=== PATIENT | male | born 1950 | race African-American/Black ===

== ENCOUNTER 2016-11-21 22:52 | Inpatient (IN) | payer MEDICARE ==
[~2016-11-21] VITALS: Ht 190.5 cm; Wt 107.0 kg
[~2016-11-21 22:52] MED LIST: ALDACTONE50 MG ORAL; BENAZEPRIL HCL40 MG ORAL; HYDROCHLOROTHIA25 MG ORAL
[2016-11-22] MEDS ORDERED: LACTULOSE20 GM/301 ORAL (02:24)
[2016-11-22] MEDS ORDERED: FUROSEMIDE20 M1 ORAL (02:24)
[2016-11-22] MEDS ORDERED: SPIRONOLACTONE1 EACH ORAL (02:24)
[2016-11-22] MEDS ORDERED: PROTONIX20 MG ORAL (02:24)
[2016-11-22] MEDS ORDERED: PROPRANOLO20 MG/5 M1 PO (02:24)
[2016-11-22] MEDS ORDERED: Acetaminophen 500mg (ES) tab ORAL PRN (02:45)
[2016-11-22 04:30] VITALS: BP 90/53
[2016-11-22] MEDS: Spironolactone 50mg tab ORAL SCH ×2 (08:23→18:18)
[2016-11-22] MEDS: Propranolol 10mg tab ORAL SCH ×2 (08:24→18:00)
[2016-11-22] MEDS: Lactulose 20gm/30ml UDC ORAL SCH ×2 (08:30→18:18)
[2016-11-22 08:37] VITALS: BP 91/53
[2016-11-22 08:43] LABS: MEAN CORPUSCULAR HGB CONC 30.9 G/DL (32.0-36.0); MEAN CORPUSCULAR VOLUME 104 FL (80-99); MEAN PLATELET VOLUME 8.1 FL (6.5-10.1); PLATELET COUNT 76 K/UL (150-450); RED BLOOD COUNT 2.16 M/UL (4.70-6.10); RED CELL DISTRIBUTION WIDTH 17.9 % (11.6-14.8); WHITE BLOOD COUNT 7.1 K/UL (4.8-10.8)
[2016-11-22 08:54] LABS: TROPONIN I < 0.30 ng/mL (<=0.30)
[2016-11-22 08:57] LABS: REFLEX LACTIC ACID YES OR NO YES
[2016-11-22 08:59] LABS: ALANINE AMINOTRANSFERASE 34 U/L (3-41); ALBUMIN/GLOBULIN RATIO 0.3 (1.0-2.7); ANION GAP 13 (5-15); ASPARTATE AMINO TRANSFERASE 62 U/L (5-40); CALCIUM 8.1 mg/dL (8.6-10.2); CARBON DIOXIDE 22 mEQ/L (20-30); CHLORIDE 101 mEQ/L (98-107); CHOLESTEROL 76 mg/dL (< 200); CHOLESTEROL/HDL RATIO 5.8 (3.3-4.4); CREATININE 1.3 mg/dL (0.7-1.2); GLOMERULAR FILTRATION RATE > 60 mL/min (>60); HEMOLYSIS 0; LDL CHOLESTEROL (CALC.) 56 mg/dL (60-99); POTASSIUM 4.2 mEQ/L (3.4-4.9); SODIUM 136 mEQ/L (135-145); TOTAL PROTEIN 6.7 g/dL (6.6-8.7)
[2016-11-22] MEDS ORDERED: Enoxaparin 40mg Inj SUBQ SCH (09:00)
[2016-11-22 09:12] LABS: BILIRUBIN,DIRECT 2.1 mg/dL (0.1-0.3)
[2016-11-22 09:38] LABS: HEMOGLOBIN A1C 4.5 % (< 6.0)
--- NOTE | 2016-11-22 10:02 | General Progress Note ---
Assessment/Plan Status: unchanged Assessment/Plan 1- Sepsis 2- Liver cirhosis 3- HepC 4- Acute Anemia 5- Full code 6- Thrombocytopenia 7- GI-DVT prophylaxia Plan Proceed 2 unit Pack-RBC hold Lovenox LE Dupplex Levaquin to cover SBP Abd US, CXR GI, Dr Denson is consulted Subjective ROS Limited/Unobtainable: No Allergies: Coded Allergies: No Known Allergies (Unverified , 08/21/16) Objective Last 24 Hour Vital Signs Date Time Temp Pulse Resp B/P Pulse Ox O2 Delivery O2 Flow Rate FiO2 11/22/16 08:37 97.3 67 18 91/53 100 Nasal Cannula 3.0 11/22/16 08:24 67 91/53 11/22/16 04:30 97.2 62 20 90/53 97 Nasal Cannula 2.0 11/22/16 04:00 65 Intake and Output 11/21/16 11/22/16 19:00 07:00 # Voids 1 Laboratory Tests 11/22/16 08:00: White Blood Count 7.1, Red Blood Count 2.16L, Hemoglobin 6.9*L, Hematocrit 22.3L , Mean Corpuscular Volume 104H, Mean Corpuscular Hemoglobin 32.0H, Mean Corpuscular Hemoglobin Concent 30.9L, Red Cell Distribution Width 17.9H, Platelet Count 76L, Mean Platelet Volume 8.1, Neutrophils (%) (Auto) , Lymphocytes (%) (Auto) , Monocytes (%) (Auto) , Eosinophils (%) (Auto) , Basophils (%) (Auto) , Neutrophils % (Manual) [Pending], Lymphocytes % (Manual) [Pending], Platelet Estimate [Pending], Platelet Morphology [Pending], Sodium Level 136, Potassium Level 4.2, Chloride Level 101, Carbon Dioxide Level 22, Anion Gap 13, Blood Urea Nitrogen 15, Creatinine 1.3H, Estimat Glomerular Filtration Rate > 60, Glucose Level 147H, Hemoglobin A1c 4.5, Lactic Acid Level 2.10, Calcium Level 8.1L, Total Bilirubin 4.1H, Direct Bilirubin 2.1H, Aspartate Amino Transf (AST/SGOT) 62H, Alanine Aminotransferase (ALT/SGPT) 34, Alkaline Phosphatase 49, Ammonia 42, Troponin I < 0.30, Total Protein 6.7, Albumin 1.7L, Globulin 5.0, Albumin/Globulin Ratio 0.3L, Triglycerides Level 33 , Cholesterol Level 76, LDL Cholesterol 56L, HDL Cholesterol 13, Cholesterol/ HDL Ratio 5.8H, Thyroid Stimulating Hormone (TSH) 2.090 Height (Feet): 6 Height (Inches): 3.00 Weight (Pounds): 235 General Appearance: no apparent distress EENT: PERRL/EOMI Neck: supple Cardiovascular: normal rate Respiratory/Chest: lungs clear Abdomen: soft, other - protuberant, Shfiting dullness? 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
--- NOTE | 2016-11-22 12:18 | Consultation ---
Consult Note Consult Note ID Dic # [id number] LAURENT WYNN M.D. Nov 22, 2016 12:18
[2016-11-22 12:44] VITALS: BP 91/63
[2016-11-22 13:14] LABS: BAND NEUTROPHILS % (MANUAL) 0 % (0-8); BASOPHILS % (MANUAL) 0 % (0-2); EOSINOPHILS % (MANUAL) 2 % (0-3); LYMPHOCYTES % (MANUAL) 16 % (20-45); NEUTROPHILS % (MANUAL) 74 % (45-75); PLATELET ESTIMATE DECREASED; PLATELET MORPHOLOGY NORMAL; TOTAL CELLS COUNTED 100
[2016-11-22 13:15] LABS: ANISOCYTOSIS 2+; HYPOCHROMASIA 1+; MACROCYTES 1+; POLYCHROMASIA 1+
[2016-11-22 13:16] LABS: INR 2.5 (0.9-1.1); PROTHROMBIN TIME 26.3 SEC (9.30-11.50)
--- NOTE | 2016-11-22 13:17 | GI Initial Consult Note ---
History of Present Illness General Date patient seen: Nov 22, 2016 Time patient seen: 13:17 Referring physician: OLIVER FLOYD Reason for Consultation: GI BLEED Present Illness HPI 66 year old patient that was recently discharged from [facility] underwent an upper endoscopy on 08/23/2016 with findings of grade 4 distal esophageal varices, small hiatal hernia, distal esophageal bleeding, and portal hypertensive gastropathy. He was started on propranolol. Dr. Liang was consulted for evaluation of thrombocytopenia consistent with end-stage cirrhosis as well as hepatomegaly and hepatosplenomegaly. Hepatitis panel was positive for hepatitis C. Patient presents today with c/o of weakness and fatigue. He presents anemia Hgb 6.9. Ammonia levels are normal. Assessment ETOH cirrhosis Hepatitis C hepatic encephalopathy CHF Esophageal varices s/p EGD 08/2016 - SUMMARY OF FINDINGS: 1. One column of grade 4 distal esophageal varices with questionable stigmata with some smaller columns next to it. 2. Small hiatal hernia. 3. Distal esophageal ring. 4. Portal hypertensive gastropathy. Home Meds Reported Medications Lactulose (LACTULOSE*) 20 Gm/30 Ml Solution, 22 ML ORAL BID, ML 0 Refills 11/22/16 Furosemide* (LASIX*) 20 Mg Tablet, 20 MG ORAL DAILY, TAB 11/22/16 Propranolol Hcl (PROPRANOLOL HCL) 20 Mg/5 Ml Solution, 10 MG PO BID 11/22/16 Spironolact/Hydrochlorothiazid (SPIRONOLACTONE-HCTZ 25-25 TAB) 1 Each Tablet, 1 TAB ORAL BID, TAB 11/22/16 Pantoprazole Sodium (PROTONIX) 20 Mg Tablet.dr, 40 MG ORAL BID, TAB 11/22/16 Benazepril Hcl* (BENAZEPRIL HCL*) 40 Mg Tablet, 40 MG ORAL DAILY, TAB 08/21/16 Spironolactone (ALDACTONE) 50 Mg Tablet, 50 MG ORAL DAILY, TAB 08/21/16 Hydrochlorothiazide* (HYDROCHLOROTHIAZIDE*) 25 Mg Tablet, 25 MG ORAL DAILY, TAB 08/21/16 Med list reviewed/reconciled: Yes Allergies: Coded Allergies: No Known Allergies (Unverified , 08/21/16) Patient History History Provided By: Patient, Medical Record Review of Systems All Other Systems: negative except mentioned in HPI Physical Exam Vital Signs Date Time Temp Pulse Resp B/P Pulse Ox O2 Delivery O2 Flow Rate FiO2 11/22/16 04:00 65 11/22/16 04:30 97.2 20 90/53 97 Nasal Cannula 2.0 Sp02 EP Interpretation: reviewed Labs Laboratory Tests Test 11/22/16 08:00 11/22/16 10:48 11/22/16 12:00 White Blood Count 7.1 K/UL (4.8-10.8) Red Blood Count 2.16 M/UL (4.70-6.10) L Hemoglobin 6.9 G/DL (14.2-18.0) *L Hematocrit 22.3 % (42.0-52.0) L Mean Corpuscular Volume 104 FL (80-99) H Mean Corpuscular Hemoglobin 32.0 PG (27.0-31.0) H Mean Corpuscular Hemoglobin Concent 30.9 G/DL (32.0-36.0) L Red Cell Distribution Width 17.9 % (11.6-14.8) H Platelet Count 76 K/UL (150-450) L Mean Platelet Volume 8.1 FL (6.5-10.1) Neutrophils (%) (Auto) % (45.0-75.0) Lymphocytes (%) (Auto) % (20.0-45.0) Monocytes (%) (Auto) % (1.0-10.0) Eosinophils (%) (Auto) % (0.0-3.0) Basophils (%) (Auto) % (0.0-2.0) Differential Total Cells Counted 100 Neutrophils % (Manual) 74 % (45-75) Lymphocytes % (Manual) 16 % (20-45) L Monocytes % (Manual) 8 % (1-10) Eosinophils % (Manual) 2 % (0-3) Basophils % (Manual) 0 % (0-2) Band Neutrophils 0 % (0-8) Platelet Estimate Decreased L Platelet Morphology Normal Polychromasia 1+ Hypochromasia 1+ Anisocytosis 2+ Macrocytosis 1+ Sodium Level 136 mEQ/L (135-145) Potassium Level 4.2 mEQ/L (3.4-4.9) Chloride Level 101 mEQ/L (98-107) Carbon Dioxide Level 22 mEQ/L (20-30) Anion Gap 13 (5-15) Blood Urea Nitrogen 15 mg/dL (7-23) Creatinine 1.3 mg/dL (0.7-1.2) H Estimat Glomerular Filtration Rate > 60 mL/min (>60) Glucose Level 147 mg/dL (74-106) H Hemoglobin A1c 4.5 % (< 6.0) Lactic Acid Level 2.10 mmol/L (0.66-2.22) 2.30 mmol/L (0.66-2.22) H Calcium Level 8.1 mg/dL (8.6-10.2) L Total Bilirubin 4.1 mg/dL (0.0-1.2) H Direct Bilirubin 2.1 mg/dL (0.1-0.3) H Aspartate Amino Transf (AST/SGOT) 62 U/L (5-40) H Alanine Aminotransferase (ALT/SGPT) 34 U/L (3-41) Alkaline Phosphatase 49 U/L (40-129) Ammonia 42 umol/L (16-60) Troponin I < 0.30 ng/mL (<=0.30) Total Protein 6.7 g/dL (6.6-8.7) Albumin 1.7 g/dL (3.5-5.2) L Globulin 5.0 g/dL Albumin/Globulin Ratio 0.3 (1.0-2.7) L Triglycerides Level 33 mg/dL (< 150) Cholesterol Level 76 mg/dL (< 200) LDL Cholesterol 56 mg/dL (60-99) L HDL Cholesterol 13 mg/dL (> 60) Cholesterol/HDL Ratio 5.8 (3.3-4.4) H Thyroid Stimulating Hormone (TSH) 2.090 uIU/mL (0.300-4.500) Prothrombin Time Pending Prothromb Time International Ratio Pending Activated Partial Thromboplast Time Pending General Appearance: well appearing, no apparent distress, alert Head: normocephalic EENT: normal ENT inspection Neck: supple Respiratory: normal breath sounds, no respiratory distress Cardiovascular: normal rate Gastrointestinal: normal inspection, non tender, soft Rectal: deferred Musculoskeletal: back normal Neurologic: normal inspection, alert, oriented x3, responsive Psychiatric: normal inspection, judgement/insight normal, memory normal Skin: no rash, warm/dry, jaundice Lymphatic: normal inspection, no adenopathy Current Medications Current Medications Medications (Trade) Dose Ordered Sig/Jayne Route PRN Reason Start Time Stop Time Status Last Admin Dose Admin Acetaminophen 500 mg 500 mg Q8H PRN ORAL For Pain 11/22/16 02:45 12/22/16 02:44 Al Hydroxide/Mg Hydroxide 30 ml 30 ml Q8H PRN ORAL Abdominal cramps 11/22/16 02:45 12/22/16 02:44 Dextrose (Dextrose 50%) STAT PRN IV Hypoglycemia 11/22/16 02:30 12/22/16 02:29 Furosemide (Lasix) 20 mg DAILY ORAL 11/22/16 09:00 12/22/16 08:59 Guaifenesin (Robitussin) 100 mg Q4H PRN ORAL For Cough 11/22/16 02:45 12/22/16 02:44 Lactulose (Cephulac) 14.666 gm BID ORAL 11/22/16 09:00 12/22/16 08:59 11/22/16 08:30 Levofloxacin (Levaquin) 100 ml @ 100 mls/hr Q24H IVPB 11/22/16 09:00 11/29/16 08:59 11/22/16 08:33 Octreotide Acetate/Sodium Chloride (SandoSTATIN/NS) 500 ml @ 50 mls/hr Q10H IV 11/22/16 13:00 12/22/16 12:59 Pantoprazole (Protonix) 40 mg BID ORAL 11/22/16 09:00 12/22/16 08:59 11/22/16 08:30 Propranolol HCl (Inderal) 10 mg BID ORAL 11/22/16 09:00 12/22/16 08:59 Spironolactone (Aldactone) 50 mg BID ORAL 11/22/16 09:00 12/22/16 08:59 GI: Plan Problems: (1) Anasarca (2) Esophageal varices determined by endoscopy (3) Alcoholic cirrhosis (4) Pancytopenia Plan hepatitis panel >> Hep C positive elevated ammonia >> lactulose + xifaxan AFP elevation elevated iron levels >> 85 elevated CEA >> 6.5 pt scheduled for EGD tomorrow. - CLD, NPO @ [place]. hold all blood thinners start octreotide gtt ppi BID abx portal HTN mgmt >> propranolol monitor H&H, transfuse prn fu labs Discussed with Dr. Denson. Thank you for referring this patient, we will follow. s/p EGD 08/2016 - SUMMARY OF FINDINGS: 1. One column of grade 4 distal esophageal varices with questionable stigmata with some smaller columns next to it. 2. Small hiatal hernia. 3. Distal esophageal ring. 4. Portal hypertensive gastropathy. Nyla Huitron N.P. Nov 22, 2016 13:17
[2016-11-22 13:52] LABS: APPEARANCE,URINE CLOUDY; KETONES,URINE 1+ (NEGATIVE); LEUKOCYTE ESTERASE ,URINE 2+ (NEGATIVE); NITRITE,URINE POSITIVE (NEGATIVE); PH,URINE 5 (4.5-8.0); PROTEIN,URINE 2+ (NEGATIVE); UROBILINOGEN,URINE 4 MG/DL (0.0-1.0)
--- NOTE | 2016-11-22 13:55 | Diagnostic Imaging Report ---
Indication: Chest pain Technique: One view of the chest Comparison: 08/28/2016 Findings: Again demonstrated is a left-sided pleural effusion, appearing smaller than on the prior study. Right basilar hazy opacity likely represents some consolidation, also less than on the prior exam. There may be some consolidation at the left lung base as well. The heart is again enlarged. Impression: Left-sided pleural effusion, smaller than prior study of August of 2016 Bilateral basilar opacities, likely from parenchymal consolidation or edema Cardiomegaly
[2016-11-22] MEDS: Octreotide Acetate 500 MCG in Sodium Chloride 499 ML IV SCH ×2 (14:03→21:54)
[2016-11-22 14:21] LABS: BACTERIA,URINE FEW /HPF; SQUAMOUS EPITHELIAL CELL,UR FEW /LPF (NONE/OCC)
[2016-11-22 14:22] LABS: ICTOTEST POSITIVE
[2016-11-22 16:00] VITALS: BP 96/51
--- NOTE | 2016-11-22 17:48 | Consultation ---
Consult Note Consult Note HEMATOLOGY ONCOLOGY CONSULT DATE OF CONSULTATION: 11/22/16 CONSULTING PHYSICIAN: Hermilo Liang M.D. REFERRING PHYSICIAN: Noni Bush M.D. REASON FOR CONSULTATION: Evaluation of thrombcytopenia and anemia IDENTIFICATION DATA: Dear Dr. Noni Bush, The patient is a pleasant 66-year-old male with past medical history which is significant for hypertension and otherwise no past medical history at this time presents with a decreased hgb as well as weaknes on labs, was transfused in the ER. He was found to have with elevated ammonia level and remains coagulopathic. GI service as well as consultation was ordered. The patient without any GI bleeding at this moment. The patient was noted to have anemia, leukopenia; therefore, Hematology service was consulted. No blasts were noted on peripheral smear. The patient denies any systemic symptoms at this time. PAST MEDICAL HISTORY: Hypertension. PAST SURGICAL HISTORY: None. MEDICATIONS: Reviewed. ALLERGIES: No known drug allergies. SOCIAL HISTORY: Denies any tobacco use. Drinks wine everyday. No intravenous drug use. FAMILY HISTORY: Noncontributory. REVIEW OF SYSTEMS: Constitutional: No fever, chills, or night sweats. Skin : No rash, bumps or itching. HEENT: No headache, earache, or visual change. Breasts: No lumps, pain, or discharge. Pulmonary: No cough, sputum , or shortness of breath. Cardiovascular: No chest pain, tightness, or palpitations. Gastrointestinal: No nausea, vomiting, or diarrhea. Genitourinary: No dysuria, frequency, or urgency. Musculoskeletal: No joint pain, muscle pain, or trauma. PHYSICAL EXAMINATION: VITAL SIGNS: Last 24 Hour Vital Signs Date Time Temp Pulse Resp B/P Pulse Ox O2 Delivery O2 Flow Rate FiO2 11/22/16 16:00 97.5 64 21 96/51 97 Nasal Cannula 2.0 11/22/16 12:44 97.5 64 18 91/63 99 Nasal Cannula 3.0 11/22/16 12:00 67 11/22/16 08:37 97.3 67 18 91/53 100 Nasal Cannula 3.0 11/22/16 08:24 67 91/53 11/22/16 08:00 64 11/22/16 04:30 97.2 62 20 90/53 97 Nasal Cannula 2.0 11/22/16 04:00 65 GENERAL: No distress. PULMONARY: Decreased breath sounds. CARDIOVASCULAR: Regular rate and rhythm. GASTROINTESTINAL: Abdomen is soft, nontender, and nd EXTREMITIES: 1+ edema. LABORATORY AND DIAGNOSTIC DATA: Test 11/22/16 08:00 11/22/16 10:48 11/22/16 12:00 11/22/16 13:00 White Blood Count 7.1 K/UL (4.8-10.8) Red Blood Count 2.16 M/UL (4.70-6.10) L Hemoglobin 6.9 G/DL (14.2-18.0) *L Hematocrit 22.3 % (42.0-52.0) L Mean Corpuscular Volume 104 FL (80-99) H Mean Corpuscular Hemoglobin 32.0 PG (27.0-31.0) H Mean Corpuscular Hemoglobin Concent 30.9 G/DL (32.0-36.0) L Red Cell Distribution Width 17.9 % (11.6-14.8) H Platelet Count 76 K/UL (150-450) L Mean Platelet Volume 8.1 FL (6.5-10.1) Neutrophils (%) (Auto) % (45.0-75.0) Lymphocytes (%) (Auto) % (20.0-45.0) Monocytes (%) (Auto) % (1.0-10.0) Eosinophils (%) (Auto) % (0.0-3.0) Basophils (%) (Auto) % (0.0-2.0) Differential Total Cells Counted 100 Neutrophils % (Manual) 74 % (45-75) Lymphocytes % (Manual) 16 % (20-45) L Monocytes % (Manual) 8 % (1-10) Eosinophils % (Manual) 2 % (0-3) Basophils % (Manual) 0 % (0-2) Band Neutrophils 0 % (0-8) Platelet Estimate Decreased L Platelet Morphology Normal Polychromasia 1+ Hypochromasia 1+ Anisocytosis 2+ Macrocytosis 1+ Sodium Level 136 mEQ/L (135-145) Potassium Level 4.2 mEQ/L (3.4-4.9) Chloride Level 101 mEQ/L (98-107) Carbon Dioxide Level 22 mEQ/L (20-30) Anion Gap 13 (5-15) Blood Urea Nitrogen 15 mg/dL (7-23) Creatinine 1.3 mg/dL (0.7-1.2) H Estimat Glomerular Filtration Rate > 60 mL/min (>60) Glucose Level 147 mg/dL (74-106) H Hemoglobin A1c 4.5 % (< 6.0) Lactic Acid Level 2.10 mmol/L (0.66-2.22) 2.30 mmol/L (0.66-2.22) H Calcium Level 8.1 mg/dL (8.6-10.2) L Total Bilirubin 4.1 mg/dL (0.0-1.2) H Direct Bilirubin 2.1 mg/dL (0.1-0.3) H Aspartate Amino Transf (AST/SGOT) 62 U/L (5-40) H Alanine Aminotransferase (ALT/SGPT) 34 U/L (3-41) Alkaline Phosphatase 49 U/L (40-129) Ammonia 42 umol/L (16-60) Troponin I < 0.30 ng/mL (<=0.30) Total Protein 6.7 g/dL (6.6-8.7) Albumin 1.7 g/dL (3.5-5.2) L Globulin 5.0 g/dL Albumin/Globulin Ratio 0.3 (1.0-2.7) L Triglycerides Level 33 mg/dL (< 150) Cholesterol Level 76 mg/dL (< 200) LDL Cholesterol 56 mg/dL (60-99) L HDL Cholesterol 13 mg/dL (> 60) Cholesterol/HDL Ratio 5.8 (3.3-4.4) H Thyroid Stimulating Hormone (TSH) 2.090 uIU/mL (0.300-4.500) Prothrombin Time 26.3 SEC (9.30-11.50) H Prothromb Time International Ratio 2.5 (0.9-1.1) H Activated Partial Thromboplast Time 45 SEC (23-33) H Urine Color Yellow Urine Appearance Cloudy Urine pH 5 (4.5-8.0) Urine Specific [place] 1.025 (1.005-1.035) Urine Protein 2+ (NEGATIVE) H Urine Glucose (UA) Negative (NEGATIVE) Urine Ketones 1+ (NEGATIVE) H Urine Occult Blood 5+ (NEGATIVE) H Urine Nitrite Positive (NEGATIVE) H Urine Bilirubin 2+ (NEGATIVE) H Urine Ictotest Positive Urine Urobilinogen 4 MG/DL (0.0-1.0) H Urine Leukocyte Esterase 2+ (NEGATIVE) H Urine RBC 10-15 /HPF (0 - 0) H Urine WBC 5-10 /HPF (0 - 0) H Urine Squamous Epithelial Cells Few /LPF (NONE/OCC) Urine Bacteria Few /HPF (NONE) Urine Hyaline Casts 5-10 /LPF (NONE) H ASSESSMENT: 1. Thrombocytopenia currently platelet count > 60,000 range likely consistent with end-stage cirrhosis as well as hepatomegaly, hepatosplenomegaly of abdomen as well as CAT of the abdomen and pelvis. 2. Anemia secondary to chronic disease. Have transfused and anemia w/u pending 3. Decrease in hemoglobin and hematocrit, rule out gastrointestinal bleed. 4. Microcytic anemia, rule out gastrointestinal bleeding. 5. Leukopenia likely secondary to cirrhosis and hepatosplenomegaly with splenic sequestration. 6. Transaminitis. 7. Alcoholic cirrhosis. 8. Abdominal pain. 9. Coagulopathy secondary to likely liver disease. RECS: 1. Monitor counts. 2. Imaging from before reviewed 3. Paracentesis on prn basis 4. Peripheral smear has been ordered. 5. Blood has been typed and screened and transfused. 6. Maintain hemoglobin above 7 7. Maintain platelet count above 20k 8. Serology and hepatitis panel has been ordered. 9. HIV serology has been sent as well. 10. No heparin, aspirin, Plavix to be administered. 11. GI and DVT prophylaxis. 12. Endoscopy as required by GI service. Appreciate their recs 13. Monitor medications. 14. Discussed with staff. Thank you, MD Azul Tanner Roman L. Nov 22, 2016 17:48
[2016-11-22 19:55] LABS: FERRITIN > 2000 ng/mL (10-230)
[2016-11-22 20:00] VITALS: BP 105/57
--- NOTE | 2016-11-22 20:38 | History and Physical Report ---
DATE OF ADMISSION: 11/21/2016 SOURCE OF INFORMATION: The patient and EMR. HISTORY OF PRESENT ILLNESS: The patient is a pleasant 66-year-old male with multiple medical problems including but not limited to, alcoholic liver cirrhosis. The patient had been admitted to the [facility] regarding the increased shortness of breath. He was found to have infiltrate in the lung with a temperature reported 103.5 (per my conversation with the ER attending in [facility]). I requested the patient to be transferred to [place] for additional evaluation. At the time of evaluation, the patient appears comfortable. REVIEW OF SYSTEMS: Negative for chest pain. Negative for abnormal bleeding. Negative for nausea or vomitus. Negative for diarrhea. Negative for severe abdominal pain. FAMILY HISTORY: Reviewed, noncontributory. PAST MEDICAL HISTORY: Hypoxic encephalopathy, alcoholic liver cirrhosis, pancytopenia, anemia and prior blood transfusion, protein malnourishment, no evidence of heart failure, hyponatremia, hepatitis C, abnormal CEA, acute renal failure, and substance abuse (positive for amphetamine in the past). SOCIAL HISTORY: The patient has two sons. Used to be in a care home facility and transitioned to [facility] care in [place]. He is originally from [place]. Denies history of illicit drug abuse, smoking, or alcohol abuse (although the patient is positive for amphetamine). HOSPITAL MEDICATIONS: Including but not limited to the following: Levofloxacin 500 mg daily, acetaminophen, Lovenox, Lasix, lactulose, Mylanta, Protonix, Inderal, and spironolactone 50 mg twice a day. PHYSICAL EXAMINATION: VITAL SIGNS: Blood pressure 90/50, temperature 98.2, pulse rate 60-70, and pulse oximetry 97% on 3 liters of oxygen. HEAD AND NECK: Atraumatic and normocephalic. CHEST: Bibasilar bronchial breathing sounds. HEART: S1 and S2. Regular rate and rhythm. ABDOMEN: Soft. No organomegaly. Abdomen is protuberant, positive for shifting dullness. Possibility of ascites cannot be excluded. MUSCULOSKELETAL: Positive for 2 to 3+ pitting edema in the lower extremities. NEUROLOGIC: Awake, alert, and oriented x3. LABORATORY DATA: Lab results dated 11/22/2016 shows WBC 7.1, hemoglobin 6.9, and platelets 76,000. Sodium 136, potassium 4.2, BUN 15, and creatinine 1.3. Ammonia 42. Albumin 1.7. 33. TSH 2. ASSESSMENT: 1. Sepsis, source working in progress (based on the temperature of 103 reported in [place], in addition to reported altered mental status). 2. Acute anemia. 3. Chronic renal failure. 4. Cytopenia, bilinear. 5. Alcoholic cirrhosis. 6. Protein-calorie malnourishment. 7. Hepatitic encephalopathy. 8. Pulmonary infiltrate - working in progress. 9. Gastrointestinal and deep vein thrombosis prophylaxis. PLAN OF CARE: I would discontinue the Lovenox. We would check the lower extremity duplex prior to SCD placements. Type and cross 2 units and proceed with the transfusion. Nephrology, GI, and Hematology/Oncology services have been consulted in addition to the Infectious Disease Service. The patient remained in medically guarded prognosis. Noni Bush M.D. DR: GONZALES JOB#: [id number] CC:
[2016-11-22 20:43] LABS: PATH BLOOD SMEAR/OMC SENT TO PATHOLOGIST
[2016-11-22 21:16] LABS: HEMOLYSIS 9; IRON 38 ug/dL (59-158); TOTAL IRON BINDING CAPACITY 96 ug/dL (250-400)
[2016-11-22] MEDS: Rifaximin 550mg tab ORAL SCH (21:53)
[2016-11-22] MEDS: Pantoprazole Inj IVP SCH (21:53)
[2016-11-23] VITALS (11 sets, daily range): BP systolic 106–136; BP diastolic 57–77
--- NOTE | 2016-11-23 00:08 | Consultation ---
DATE OF CONSULTATION: 11/22/2016 CONSULTING PHYSICIAN: Everton Simms M.D REFERRING PHYSICIAN: REASON FOR CONSULTATION: Evaluation of the patient for sepsis and antibiotic management. HISTORY OF PRESENT ILLNESS: The patient is a 66-year-old male with multiple medical problems, who was been admitted to this medical center for fever and not feeling well. He has some cough with phlegm and sputum production. There has been a concern for possible SBP also. The patient has been started on IV antibiotics. Infectious Disease consultation has been requested for further evaluation of the patient and antibiotic management. PAST MEDICAL HISTORY: 1. Significant for recent history of healthcare-associated pneumonia. 2. History of hepatitis C. 3. Cirrhosis. 4. History of elevated CEA. ALLERGIES: No known drug allergies. SOCIAL HISTORY: Negative for smoking. FAMILY HISTORY: Noncontributory. REVIEW OF SYSTEMS: HEENT: No recent change in vision or hearing. Pulmonary: As mentioned above. Cardiovascular: No chest pain or palpitation. Gastrointestinal: No nausea or vomiting. Genitourinary: No dysuria. PHYSICAL EXAMINATION: HEENT: Mild pale conjunctivae. No icterus NECK: Supple. CHEST: Coarse breathing sounds. HEART: S1 and S2. ABDOMEN: Soft. Distended. Nontender. EXTREMITIES: Bilateral lower extremity edema. No cellulitis. NEUROLOGIC: Awake and alert. LABORATORY DATA: White blood cells 7, hemoglobin 7, and platelets 76,000. UA, 0 to 2 white blood cells. BUN 15 and creatinine 1.3. Bilirubin 4.1, AST 62, ALT 34, and alkaline phosphatase 49. Chest x-ray, moderate bilateral pleural effusion. ASSESSMENT: The patient is a 66-year-old male with multiple medical problems as listed above, who has, 1. Cirrhosis. 2. Low-grade fever. 3. Probable pneumonia/bronchitis. 4. Rule out Spontaneous bacterial peritonitis. However, the patient does not have abdominal pain. PLAN: 1. We will continue the patient on Levaquin. 2. Monitor CBC. 3. Monitor BMP. 4. Monitor cultures (blood and sputum). 5. Ultrasound of the abdomen for evaluation of ascites. 6. We will check a rapid flu test. 7. Monitor chest x-ray. 8. Based on the patient's history and labs, we will do further recommendations. Thank you, , for allowing me to participate in the care of this patient. I will the patient the patient with you during this hospitalization. Everton Simms M.D. DR: EVANS JOB#: [id number] CC:
[2016-11-23] MEDS: guaiFENesin 100mg/5ml Liq ud ORAL PRN (06:23)
[2016-11-23 07:44] LABS: MEAN CORPUSCULAR HEMOGLOBIN 31.6 PG (27.0-31.0); MEAN CORPUSCULAR HGB CONC 31.8 G/DL (32.0-36.0); MEAN CORPUSCULAR VOLUME 99 FL (80-99); MEAN PLATELET VOLUME 10.2 FL (6.5-10.1); PLATELET COUNT 81 K/UL (150-450); RED BLOOD COUNT 2.77 M/UL (4.70-6.10); RED CELL DISTRIBUTION WIDTH 18.3 % (11.6-14.8); WHITE BLOOD COUNT 5.4 K/UL (4.8-10.8)
--- NOTE | 2016-11-23 08:02 | Cardiology Progress Note ---
Assessment/Plan Assessment/Plan The patient is seen and examined, full consult note will be dictated. Objective Last 24 Hour Vital Signs Date Time Temp Pulse Resp B/P Pulse Ox O2 Delivery O2 Flow Rate FiO2 11/23/16 05:06 66 11/23/16 04:00 97.5 59 18 106/57 96 Room Air 11/23/16 00:00 97.9 62 20 107/63 100 Room Air 11/22/16 23:55 67 11/22/16 20:00 64 11/22/16 20:00 96.8 60 18 105/57 Room Air 11/22/16 18:00 64 96/51 11/22/16 16:00 59 11/22/16 16:00 97.5 64 21 96/51 97 Nasal Cannula 2.0 11/22/16 12:44 97.5 64 18 91/63 99 Nasal Cannula 3.0 11/22/16 12:00 67 11/22/16 08:37 97.3 67 18 91/53 100 Nasal Cannula 3.0 11/22/16 08:24 67 91/53 Intake and Output 11/22/16 11/23/16 19:00 07:00 Intake Total 220 ml 450 ml Output Total 300 ml Balance 220 ml 150 ml Intake Oral 120 ml IV Total 100 ml 450 ml Output Urine Total 300 ml # Bowel Movements 2 Laboratory Tests Test 11/22/16 10:30 11/22/16 10:48 11/22/16 12:00 11/22/16 13:00 Iron Level 38 ug/dL (59-158) L Total Iron Binding Capacity 96 ug/dL (250-400) L Percent Iron Saturation 40 % (15-50) Unsaturated Iron Binding 58 ug/dL (112-346) L Ferritin > 2000 ng/mL (10-230) H Lactic Acid Level 2.30 mmol/L (0.66-2.22) H Prothrombin Time 26.3 SEC (9.30-11.50) H Prothromb Time International Ratio 2.5 (0.9-1.1) H Activated Partial Thromboplast Time 45 SEC (23-33) H Urine Color Yellow Urine Appearance Cloudy Urine pH 5 (4.5-8.0) Urine Specific Stoddard 1.025 (1.005-1.035) Urine Protein 2+ (NEGATIVE) H Urine Glucose (UA) Negative (NEGATIVE) Urine Ketones 1+ (NEGATIVE) H Urine Occult Blood 5+ (NEGATIVE) H Urine Nitrite Positive (NEGATIVE) H Urine Bilirubin 2+ (NEGATIVE) H Urine Ictotest Positive Urine Urobilinogen 4 MG/DL (0.0-1.0) H Urine Leukocyte Esterase 2+ (NEGATIVE) H Urine RBC 10-15 /HPF (0 - 0) H Urine WBC 5-10 /HPF (0 - 0) H Urine Squamous Epithelial Cells Few /LPF (NONE/OCC) Urine Bacteria Few /HPF (NONE) Urine Hyaline Casts 5-10 /LPF (NONE) H Test 11/22/16 23:00 11/23/16 06:10 Stool Occult Blood Pending White Blood Count Pending Red Blood Count Pending Hemoglobin Pending Hematocrit Pending Mean Corpuscular Volume Pending Mean Corpuscular Hemoglobin Pending Mean Corpuscular Hemoglobin Concent Pending Red Cell Distribution Width Pending Platelet Count Pending Mean Platelet Volume Pending Neutrophils (%) (Auto) Pending Lymphocytes (%) (Auto) Pending Monocytes (%) (Auto) Pending Eosinophils (%) (Auto) Pending Basophils (%) (Auto) Pending Prothrombin Time Pending Prothromb Time International Ratio Pending Activated Partial Thromboplast Time Pending Sodium Level Pending Potassium Level Pending Chloride Level Pending Carbon Dioxide Level Pending Blood Urea Nitrogen Pending Creatinine Pending Estimat Glomerular Filtration Rate Pending Glucose Level Pending Calcium Level Pending Total Bilirubin Pending Aspartate Amino Transf (AST/SGOT) Pending Alanine Aminotransferase (ALT/SGPT) Pending Alkaline Phosphatase Pending Total Protein Pending Albumin Pending Globulin Pending Microbiology Date/Time Source Procedure Growth Status 11/22/16 23:00 Nasopharynx Influenza Types A,B Antigen (REBECA) - Final Complete JADEN VAZQUEZ Nov 23, 2016 08:02
[2016-11-23 08:04] LABS: INR 2.5 (0.9-1.1); PROTHROMBIN TIME 26.5 SEC (9.30-11.50)
--- NOTE | 2016-11-23 08:07 | General Progress Note ---
Assessment/Plan Assessment/Plan ASSESSMENT: 1. Thrombocytopenia currently platelet count > 60,000 range likely consistent with end-stage cirrhosis as well as hepatomegaly, hepatosplenomegaly of abdomen as well as CAT of the abdomen and pelvis. 2. Anemia secondary to chronic disease. Ferritin is 2000, Have transfused before 3. Decrease in hemoglobin and hematocrit, rule out gastrointestinal bleed. 4. Microcytic anemia, rule out gastrointestinal bleeding. 5. Leukopenia likely secondary to cirrhosis and hepatosplenomegaly with splenic sequestration. 6. Transaminitis. 7. Alcoholic cirrhosis. 8. Abdominal pain. 9. Coagulopathy secondary to likely liver disease. RECS: 1. Monitor counts. 2. Imaging from before reviewed 3. Paracentesis on prn basis 4. Peripheral smear has been reviewed, no schitocytes 5. Blood has been typed and screened and transfused. 6. Maintain hemoglobin above 7 7. Maintain platelet count above 20k 8. Hep negative from before 9. HIV negative from before 10. No heparin, aspirin, Plavix to be administered. 11. GI and DVT prophylaxis. 12. Anemia w/u shows anemia chronic disease 13. Monitor medications. 14. Discussed with staff. Thank you, Clive Liang MD Subjective Constitutional: Reports: no symptoms HEENT: Reports: no symptoms Cardiovascular: Reports: no symptoms Respiratory: Reports: no symptoms Gastrointestinal/Abdominal: Reports: poor appetite Genitourinary: Reports: no symptoms Neurologic/Psychiatric: Reports: anxiety Endocrine: Reports: no symptoms Hematologic/Lymphatic: Reports: anemia Allergies: Coded Allergies: No Known Allergies (Unverified , 08/21/16) Subjective stable, no complaints, no hematochezia, no hematemesis Objective Last 24 Hour Vital Signs Date Time Temp Pulse Resp B/P Pulse Ox O2 Delivery O2 Flow Rate FiO2 11/23/16 05:06 66 11/23/16 04:00 97.5 59 18 106/57 96 Room Air 11/23/16 00:00 97.9 62 20 107/63 100 Room Air 11/22/16 23:55 67 11/22/16 20:00 64 11/22/16 20:00 96.8 60 18 105/57 Room Air 11/22/16 18:00 64 96/51 11/22/16 16:00 59 11/22/16 16:00 97.5 64 21 96/51 97 Nasal Cannula 2.0 11/22/16 12:44 97.5 64 18 91/63 99 Nasal Cannula 3.0 11/22/16 12:00 67 11/22/16 08:37 97.3 67 18 91/53 100 Nasal Cannula 3.0 11/22/16 08:24 67 91/53 Intake and Output 11/22/16 11/23/16 19:00 07:00 Intake Total 220 ml 450 ml Output Total 300 ml Balance 220 ml 150 ml Intake Oral 120 ml IV Total 100 ml 450 ml Output Urine Total 300 ml # Bowel Movements 2 Laboratory Tests 11/22/16 10:30: Iron Level 38L, Total Iron Binding Capacity 96L, Percent Iron Saturation 40, Unsaturated Iron Binding 58L, Ferritin > 2000H 11/22/16 10:48: Lactic Acid Level 2.30H 11/22/16 12:00: Prothrombin Time 26.3H, Prothromb Time International Ratio 2.5H, Activated Partial Thromboplast Time 45H 11/22/16 13:00: Urine Color Yellow, Urine Appearance Cloudy, Urine pH 5, Urine Specific Maceo 1.025, Urine Protein 2+H, Urine Glucose (UA) Negative, Urine Ketones 1+H, Urine Occult Blood 5+H, Urine Nitrite PositiveH, Urine Bilirubin 2+H, Urine Ictotest Positive, Urine Urobilinogen 4H, Urine Leukocyte Esterase 2+H, Urine RBC 10-15H , Urine WBC 5-10H, Urine Squamous Epithelial Cells Few, Urine Bacteria Few, Urine Hyaline Casts 5-10H 11/22/16 23:00: Stool Occult Blood [Pending] 11/23/16 06:10: White Blood Count [Pending], Red Blood Count [Pending], Hemoglobin [Pending], Hematocrit [Pending], Mean Corpuscular Volume [Pending], Mean Corpuscular Hemoglobin [Pending], Mean Corpuscular Hemoglobin Concent [Pending], Red Cell Distribution Width [Pending], Platelet Count [Pending], Mean Platelet Volume [ Pending], Neutrophils (%) (Auto) [Pending], Lymphocytes (%) (Auto) [Pending], Monocytes (%) (Auto) [Pending], Eosinophils (%) (Auto) [Pending], Basophils (%) (Auto) [Pending], Prothrombin Time [Pending], Prothromb Time International Ratio [Pending], Activated Partial Thromboplast Time [Pending], Sodium Level [ Pending], Potassium Level [Pending], Chloride Level [Pending], Carbon Dioxide Level [Pending], Blood Urea Nitrogen [Pending], Creatinine [Pending], Estimat Glomerular Filtration Rate [Pending], Glucose Level [Pending], Calcium Level [ Pending], Total Bilirubin [Pending], Aspartate Amino Transf (AST/SGOT) [Pending] , Alanine Aminotransferase (ALT/SGPT) [Pending], Alkaline Phosphatase [Pending] , Total Protein [Pending], Albumin [Pending], Globulin [Pending] Height (Feet): 6 Height (Inches): 3.00 Weight (Pounds): 233 General Appearance: alert EENT: TMs normal Neck: supple Cardiovascular: regular rhythm Respiratory/Chest: no accessory muscle use Abdomen: non tender Extremities: non-tender Edema: 1+ Leg (L), 1+ Leg (R) Edema: mild edema Neurologic: no motor/sensory deficits Skin: warm/dry Clive Liang Nov 23, 2016 08:07
[2016-11-23 08:16] LABS: ALANINE AMINOTRANSFERASE 30 U/L (3-41); ALBUMIN/GLOBULIN RATIO 0.3 (1.0-2.7); ANION GAP 12 (5-15); ASPARTATE AMINO TRANSFERASE 55 U/L (5-40); CARBON DIOXIDE 20 mEQ/L (20-30); CHLORIDE 103 mEQ/L (98-107); CREATININE 1.3 mg/dL (0.7-1.2); GLOMERULAR FILTRATION RATE > 60 mL/min (>60); HEMOLYSIS 1; POTASSIUM 4.3 mEQ/L (3.4-4.9); SODIUM 135 mEQ/L (135-145); TOTAL PROTEIN 6.8 g/dL (6.6-8.7)
[2016-11-23] MEDS: Propranolol 10mg tab ORAL SCH ×2 (09:00→18:42)
[2016-11-23 09:01] LABS: BILIRUBIN,DIRECT 1.8 mg/dL (0.1-0.3)
[2016-11-23] MEDS: Pantoprazole Inj IVP SCH ×2 (09:05→21:50)
[2016-11-23] MEDS: Lactulose 20gm/30ml UDC ORAL SCH ×2 (09:05→18:42)
[2016-11-23] MEDS: Octreotide Acetate 500 MCG in Sodium Chloride 499 ML IV SCH ×2 (09:05→18:43)
[2016-11-23] MEDS: Spironolactone 50mg tab ORAL SCH ×2 (09:06→18:42)
[2016-11-23] MEDS: Rifaximin 550mg tab ORAL SCH ×2 (09:09→21:49)
--- NOTE | 2016-11-23 09:57 | Pre-Procedure Note/Attestation ---
Pre-Procedure Note/Attestation Complete Prior to Procedure Planned Procedure: not applicable Procedure Narrative: egd Indications for Procedure Pre-Operative Diagnosis: gib Attestation I attest that I discussed the nature of the procedure; its benefits; risks and complications; and alternatives (and the risks and benefits of such alternatives ), prior to the procedure, with the patient (or the patient's legal software support representative). I attest that, if there was a reasonable possibility of needing a blood transfusion, the patient (or the patient's legal software support representative) was given the [facility] standardized written summary, pursuant to the Salvatore Cherry Blood Safety Act ([place] Health and Safety Code # 1645, as amended). I attest that I re-evaluated the patient just prior to the surgery and that there has been no change in the patient's H&P, except as documented below: ELIO OH Nov 23, 2016 09:57
[2016-11-23] MEDS ORDERED: Lidocaine 1% MPF 10mg/ml 5ml ONE (10:00)
[2016-11-23] MEDS ORDERED: Propofol 10mg/ml 20ml IV ONE (10:00)
[2016-11-23] MEDS ORDERED: Ketorolac 30mg Inj IV PRN (10:15)
[2016-11-23] MEDS ORDERED: Norco 5mg/325mg tab ORAL PRN (10:15)
[2016-11-23] MEDS ORDERED: fentaNYL 100 mcg/2 mL IV PRN (10:15)
[2016-11-23] MEDS ORDERED: Hydromorphone 0.5mg/0.5ml inj IVP PRN (10:15)
--- NOTE | 2016-11-23 10:16 | Endoscopy Procedure Note ---
Endoscopy Procedure Note Indication for Procedure: gib Procedures Performed: EGD Operative Findings/Diagnosis: esoph varices Specimen: yes Pt Tolerated Procedure Well: Yes Estimated Blood Loss: none Anesthesiologist: prisca Anesthesia: MAC Implant(s) used?: No 50 yrs or older w/o bx or poly: Not Applicable 10yrs. F/U not recommended: Not Applicable ELIO OH Nov 23, 2016 10:16
--- NOTE | 2016-11-23 10:21 | Anethesia Preoperative Eval ---
Anesthesia Pre-op PMH/ROS General Date of Evaluation: Nov 23, 2016 Time of Evaluation: 10:15 Anesthesiologist: Yinka ASA Score: ASA 4 Mallampati Score Class I : Soft palate, uvula, fauces, pillars visible Class II: Soft palate, uvula, fauces visible Class III: Soft palate, base of uvula visible Class IV: Only hard plate visible Mallampati Classification: Class III Surgeon: Magaly Diagnosis: liver Cirhosis Surgical Procedure: Bandinf ophagal Varices Family History: no anesthesia problems Allergies: Coded Allergies: No Known Allergies (Unverified , 08/21/16) Medications: see eMAR Past Medical History Cardiovascular: Reports: HTN Pulmonary: Reports: COPD Gastrointestinal/Genitourinary: Reports: CRI Neurologic/Psychiatric: Reports: dementia Endocrine: Denies: DM, hypothyroidism, other, steroids HEENT: Denies: KALSKAG (L), KALSKAG (R), cataract (L), cataract (R), glaucoma, other Hematology/Immune: Reports: anemia Musculoskeletal/Integumentary: Reports: DJD Anesthesia Pre-op Phys. Exam Physician Exam Last Vital Signs Date Time Temp Pulse Resp B/P Pulse Ox O2 Delivery O2 Flow Rate FiO2 11/23/16 09:00 58 117/62 11/23/16 08:42 97.9 18 99 Nasal Cannula 2.0 Constitutional: NAD Neurologic: CN 2-12 intact Cardiovascular: other - Distnt Respiratory: CTA - Distnt Airway Exam Mallampati Score: Class III Anesthesia Pre-op A/P Labs Hematology Test 11/23/16 06:10 White Blood Count 5.4 K/UL (4.8-10.8) Red Blood Count 2.77 M/UL (4.70-6.10) L Hemoglobin 8.8 G/DL (14.2-18.0) L Hematocrit 27.5 % (42.0-52.0) L Mean Corpuscular Volume 99 FL (80-99) Mean Corpuscular Hemoglobin 31.6 PG (27.0-31.0) H Mean Corpuscular Hemoglobin Concent 31.8 G/DL (32.0-36.0) L Red Cell Distribution Width 18.3 % (11.6-14.8) H Platelet Count 81 K/UL (150-450) L Mean Platelet Volume 10.2 FL (6.5-10.1) H Neutrophils (%) (Auto) % (45.0-75.0) Lymphocytes (%) (Auto) % (20.0-45.0) Monocytes (%) (Auto) % (1.0-10.0) Eosinophils (%) (Auto) % (0.0-3.0) Basophils (%) (Auto) % (0.0-2.0) Neutrophils % (Manual) Pending Lymphocytes % (Manual) Pending Platelet Estimate Pending Platelet Morphology Pending Coagulation Test 11/22/16 12:00 11/23/16 06:10 Prothrombin Time 26.3 SEC (9.30-11.50) H 26.5 SEC (9.30-11.50) H Prothromb Time International Ratio 2.5 (0.9-1.1) H 2.5 (0.9-1.1) H Activated Partial Thromboplast Time 45 SEC (23-33) H 47 SEC (23-33) H Chemistry Test 11/22/16 10:30 11/22/16 10:48 11/23/16 06:10 Iron Level 38 ug/dL (59-158) L Total Iron Binding Capacity 96 ug/dL (250-400) L Percent Iron Saturation 40 % (15-50) Unsaturated Iron Binding 58 ug/dL (112-346) L Ferritin > 2000 ng/mL (10-230) H Lactic Acid Level 2.30 mmol/L (0.66-2.22) H Sodium Level 135 mEQ/L (135-145) Potassium Level 4.3 mEQ/L (3.4-4.9) Chloride Level 103 mEQ/L (98-107) Carbon Dioxide Level 20 mEQ/L (20-30) Anion Gap 12 (5-15) Blood Urea Nitrogen 16 mg/dL (7-23) Creatinine 1.3 mg/dL (0.7-1.2) H Estimat Glomerular Filtration Rate > 60 mL/min (>60) Glucose Level 153 mg/dL (74-106) H Calcium Level 8.0 mg/dL (8.6-10.2) L Total Bilirubin 4.1 mg/dL (0.0-1.2) H Direct Bilirubin 1.8 mg/dL (0.1-0.3) H Aspartate Amino Transf (AST/SGOT) 55 U/L (5-40) H Alanine Aminotransferase (ALT/SGPT) 30 U/L (3-41) Alkaline Phosphatase 45 U/L (40-129) Total Protein 6.8 g/dL (6.6-8.7) Albumin 1.8 g/dL (3.5-5.2) L Globulin 5.0 g/dL Albumin/Globulin Ratio 0.3 (1.0-2.7) L MARIA VICTORIA CARMONA M.D. Nov 23, 2016 10:21
--- NOTE | 2016-11-23 10:22 | Immediate Post-Op Evaluation ---
Immediate Post-Op Evalulation Immediate Post-Op Evalulation Procedure: EGD w banding Date of Evaluation: Nov 23, 2016 Time of Evaluation: 10:40 IV Fluids: 200 Blood Products: 0 Estimated Blood Loss: 0 Urinary Output: 0 Blood Pressure Systolic: 120 Blood Pressure Diastolic: 70 Pulse Rate: 76 Respiratory Rate: 22 O2 Sat by Pulse Oximetry: 97 Temperature (Fahrenheit): 98 Pain Score (1-10): 2 Nausea: No Vomiting: No Complications na Patient Status: awake Hydration Status: adequate Given Within 1 Hr of Incision: MARIA VICTORIA Corcoran M.D. Nov 23, 2016 10:22
--- NOTE | 2016-11-23 10:23 | 48 Hour Post Anesthesia Eval ---
Post Anesthesia Evaluation Procedure: EGD w banding Date of Evaluation: Nov 23, 2016 Time of Evaluation: 11:40 Blood Pressure Systolic: 125 0: 70 Pulse Rate: 75 Respiratory Rate: 20 Temperature (Fahrenheit): 97.6 O2 Sat by Pulse Oximetry: 97 Airway: patent Nausea: No Vomiting: No Pain Intensity: 2 Hydration Status: adequate Cardiopulmonary Status: Stable Mental Status/LOC: patient returned to baseline Follow-up Care/Observations: na Post-Anesthesia Complications: na Follow-up care needed: N/A MARIA VICTORIA CARMONA M.D. Nov 23, 2016 10:23
[2016-11-23] MEDS ORDERED: Phytonadione 1 MG in D5W 55 ML IVPB ONE (11:00)
[2016-11-23 11:31] LABS: EOSINOPHILS % (MANUAL) 5 % (0-3); LYMPHOCYTES % (MANUAL) 17 % (20-45); NEUTROPHILS % (MANUAL) 65 % (45-75); TOTAL CELLS COUNTED 100
[2016-11-23 11:32] LABS: ANISOCYTOSIS 1+; BAND NEUTROPHILS % (MANUAL) 0 % (0-8); BASOPHILS % (MANUAL) 0 % (0-2); BURR CELLS OCCASIONAL; PLATELET ESTIMATE DECREASED; PLATELET MORPHOLOGY NORMAL
--- NOTE | 2016-11-23 11:50 | General Progress Note ---
Assessment/Plan Status: stable Assessment/Plan 1. Acute GI-Bleeing . 2. Cytopenia, bilinear. 5. Alcoholic cirrhosis. 6. Protein-calorie malnourishment. 7. Hepatitic encephalopathy. 8. Pulmonary infiltrate - working in progress. 9. Hep-C 9. Gastrointestinal and deep vein thrombosis prophylaxis. PLAN OF CARE: S/p EGD and blood transfusion The patient remained in medically guarded prognosis. Subjective ROS Limited/Unobtainable: No Constitutional: Reports: malaise HEENT: Reports: no symptoms Cardiovascular: Reports: no symptoms Allergies: Coded Allergies: No Known Allergies (Unverified , 08/21/16) Objective Last 24 Hour Vital Signs Date Time Temp Pulse Resp B/P Pulse Ox O2 Delivery O2 Flow Rate FiO2 11/23/16 11:44 97.5 67 20 129/69 100 Nasal Cannula 2.0 11/23/16 11:00 97.8 67 21 126/65 100 Nasal Cannula 3.0 11/23/16 10:50 68 23 128/67 99 Nasal Cannula 3.0 11/23/16 10:40 70 22 117/62 99 Nasal Cannula 3.0 11/23/16 10:35 74 18 115/65 99 Simple Mask 6.0 11/23/16 10:30 98.2 75 22 116/75 99 Simple Mask 6.0 11/23/16 10:23 75 20 97 11/23/16 10:22 76 22 97 11/23/16 09:00 58 117/62 11/23/16 08:42 97.9 58 18 117/62 99 Nasal Cannula 2.0 11/23/16 05:06 66 11/23/16 04:00 97.5 59 18 106/57 96 Room Air 11/23/16 00:00 97.9 62 20 107/63 100 Room Air 11/22/16 23:55 67 11/22/16 20:00 64 11/22/16 20:00 96.8 60 18 105/57 Room Air 11/22/16 18:00 64 96/51 11/22/16 16:00 59 11/22/16 16:00 97.5 64 21 96/51 97 Nasal Cannula 2.0 11/22/16 12:44 97.5 64 18 91/63 99 Nasal Cannula 3.0 11/22/16 12:00 67 Intake and Output 11/22/16 11/23/16 19:00 07:00 Intake Total 220 ml 450 ml Output Total 300 ml Balance 220 ml 150 ml Intake Oral 120 ml IV Total 100 ml 450 ml Output Urine Total 300 ml # Bowel Movements 2 Laboratory Tests 11/22/16 12:00: Prothrombin Time 26.3H, Prothromb Time International Ratio 2.5H, Activated Partial Thromboplast Time 45H 11/22/16 13:00: Urine Color Yellow, Urine Appearance Cloudy, Urine pH 5, Urine Specific Cecil 1.025, Urine Protein 2+H, Urine Glucose (UA) Negative, Urine Ketones 1+H, Urine Occult Blood 5+H, Urine Nitrite PositiveH, Urine Bilirubin 2+H, Urine Ictotest Positive, Urine Urobilinogen 4H, Urine Leukocyte Esterase 2+H, Urine RBC 10-15H , Urine WBC 5-10H, Urine Squamous Epithelial Cells Few, Urine Bacteria Few, Urine Hyaline Casts 5-10H 11/22/16 23:00: Stool Occult Blood [Pending] 11/23/16 06:10: Prothrombin Time 26.5H, Prothromb Time International Ratio 2.5H, Activated Partial Thromboplast Time 47H, White Blood Count 5.4, Red Blood Count 2.77L, Hemoglobin 8.8L, Hematocrit 27.5L, Mean Corpuscular Volume 99, Mean Corpuscular Hemoglobin 31.6H, Mean Corpuscular Hemoglobin Concent 31.8L, Red Cell Distribution Width 18.3H, Platelet Count 81L, Mean Platelet Volume 10.2H, Neutrophils (%) (Auto) , Lymphocytes (%) (Auto) , Monocytes (%) (Auto) , Eosinophils (%) (Auto) , Basophils (%) (Auto) , Differential Total Cells Counted 100, Neutrophils % (Manual) 65, Lymphocytes % (Manual) 17L, Monocytes % (Manual) 13H, Eosinophils % (Manual) 5H, Basophils % (Manual) 0, Band Neutrophils 0, Platelet Estimate DecreasedL, Platelet Morphology Normal, Anisocytosis 1+, Lennon Cells Occasional, Sodium Level 135, Potassium Level 4.3, Chloride Level 103, Carbon Dioxide Level 20, Anion Gap 12, Blood Urea Nitrogen 16, Creatinine 1.3H, Estimat Glomerular Filtration Rate > 60, Glucose Level 153H , Calcium Level 8.0L, Total Bilirubin 4.1H, Direct Bilirubin 1.8H, Aspartate Amino Transf (AST/SGOT) 55H, Alanine Aminotransferase (ALT/SGPT) 30, Alkaline Phosphatase 45, Total Protein 6.8, Albumin 1.8L, Globulin 5.0, Albumin/Globulin Ratio 0.3L Height (Feet): 6 Height (Inches): 3.00 Weight (Pounds): 233 General Appearance: no apparent distress EENT: PERRL/EOMI Neck: supple Cardiovascular: normal rate Respiratory/Chest: lungs clear Abdomen: soft, other - protuberant abdomen Extremities: non-tender, other - 2+ pitting edema Edema: 2+ Pedal (L), 2+ Pedal (R) 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
--- NOTE | 2016-11-23 12:01 | Diagnostic Imaging Report ---
Indication: Abdominal pain, abnormal liver function tests, abnormal renal function tests Technique: Kilpatrick-scale and duplex images of the upper abdomen were obtained Comparison: 08/22/2016 Findings: There is ascites. There are bilateral pleural effusions.. Gallbladder is incompletely distended. No definite stones. There is a non-shadowing nonmobile neural focus, measuring under 5 mm, consistent with small polyp. The gallbladder wall is thickened, measuring 10 mm thick. Sonographic Florence's sign is negative. Common bile duct measures 5 mm in diameter. No intrahepatic biliary ductal dilatation. Liver demonstrates coarsened echogenicity as well as surface micro-nodularity. No focal abnormality. Portal vein and hepatic veins are patent.. Pancreas is unremarkable. The spleen is enlarged, measuring 14.6 cm long axis dimension. Left kidney measures 12.3 cm in length. Right kidney measures 12.3 cm length. Both kidneys demonstrate normal echogenicity. There is no hydronephrosis. No focal abnormality. . Non-aneurysmal abdominal aorta. Impression: Evidence of hepatic cirrhosis, with coarse liver echogenicity and surface nodularity Splenomegaly and ascites, indicating portal hypertension, also previously described No definite gallstones. Gallbladder wall thickening, which is probably related to the hepatocellular disease. Acute acalculous cholecystitis is not completely excludable, nuclear medicine hepatobiliary scan should be considered if there is high clinical suspicion Probable small gallbladder polyp Note incomplete visualization of the abdominal aorta Bilateral pleural effusions
[2016-11-23 13:48] LABS: OTHERS PATHOLOGIST COMMENT
--- NOTE | 2016-11-23 13:58 | Consultation ---
DATE OF CONSULTATION: 11/23/2016 CARDIOLOGY CONSULTATION CONSULTING PHYSICIAN: Jigar Arias M.D. REFERRING PHYSICIAN: Noni Bush M.D. REASON FOR CONSULTATION: Management of hypotension. HISTORY OF PRESENT ILLNESS: The patient is a very pleasant 66-year-old black gentleman, who was transferred from [facility] for evaluation of shortness of breath as well as fever of 103.5 degrees Fahrenheit. Initial evaluation in the emergency of [facility] revealed possible infiltration on the left lung with associated left pleural effusion, it was a fever. The patient was transferred to this facility for further evaluation and management. Cardiology consultation was made for assessment of shortness of breath as well as hypotension. The patient currently denies any chest pain, however, his breathing is compromised as shallow and he has an associated cough. 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 MEDICATIONS: List of medication includes lactulose 22 mL twice daily, furosemide 20 mg p.o. daily, propranolol 10 mg twice daily, spironolactone hydrochlorothiazide 25/25 mg one tablet twice daily, pantoprazole 40 mg twice daily, benazepril 40 mg daily, spironolactone 50 mg p.o. daily, and hydrochlorothiazide 25 mg daily. 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 Currently, not using any illicit drugs, however in the past he has used amphetamine. He denies any tobacco. He used alcohol in the past and currently not using alcohol. FAMILY HISTORY: No premature coronary artery disease in first-degree relatives. REVIEW OF SYSTEMS: HEENT: Denies any headache, but complains of dizziness and blurred vision at times. Constitutional: He has generalized weakness, has fever as well. Cardiovascular: Denies any chest pain, shortness of breath, PND or orthopnea. He has got bilateral lower extremity edema. No syncope or palpitation. Respiratory: Complains of dyspnea, shallow breathing and cough, but no hemoptysis. Gastrointestinal: Denies any nausea, vomiting, abdominal pain, and has increased abdominal girth and history of ascites in the past. Genitourinary: Denies any hematuria, dysuria, incontinence. Neurology: Denies any motor dysfunction, sensory deficit, or altered speech. PHYSICAL EXAMINATION: VITAL SIGNS: Blood pressure was 90/60, pulse oximetry 61, O2 saturation 97% on three liters oxygen, and temperature was 103.5 degrees Fahrenheit. GENERAL: The patient is a very delightful 66-year-old gentleman, in mild to minimal respiratory distress. Alert and orient x4. HEENT: Atraumatic and normocephalic. Pupils are equal, round, and reactive to light and accommodation. Extraocular muscles intact. NECK: JVP is less than 5 cm. No carotid bruits. Carotid upstrokes, 2+ bilaterally. CARDIOVASCULAR: Normal S1 and S2. There is 2/6 mid systolic murmur. PMI is at fourth intercostal space at midclavicular line. LUNGS: Diminished breath sounds in both bases in particular in the left side there is increased dullness on percussion. ABDOMEN: Distended, nontender, and soft. Positive bowel sounds. EXTREMITIES: There is 2+ bilateral lower extremity edema. LUNGS: Clear to auscultation bilaterally. LABORATORY AND DIAGNOSTIC DATA: Laboratory findings, WBC was 7.1, hemoglobin 6.9, and platelet count of 76,000. Sodium 136, potassium is 4.2, BUN of 15, and creatinine 1.3. Ammonia was 42. AST 62 and ALT 34. Chest x-ray shows bilateral pleural effusion more on the left than the right. A 12-lead electrocardiogram not available. 2D echocardiography was reviewed, which shows normal LV systolic function with left ventricular ejection fraction of 55%. ASSESSMENT AND PLAN: 1. Hypotension, this is most likely due to hypoalbuminemia in the patient with liver cirrhosis. I would attribute to some of his medication that is used commonly for management of portal hypertension and ascites including spironolactone and Lasix. We would like to put a hold on hydrochlorothiazide and lisinopril, which is also used for possibly hypertension to ensure adequate cerebral perfusion and preventing a decrease in perfusion. A 12-lead electrocardiogram has been requested. 2. Review of 2D echocardiography shows normal left ventricular systolic function with no evidence of wall motion abnormalities. 3. Liver cirrhosis. 4. Pancytopenia. 5. Gastrointestinal bleed with profound anemia, scheduled for endoscopy. The patient is currently NPO. I would like to thank, Dr. Bush, for the courtesy of this consultation. Jigar Arias M.D. DR: Katya JOB#: [id number] CC:
--- NOTE | 2016-11-23 18:18 | Procedure Note ---
DATE OF PROCEDURE: 11/23/2016 SURGEON: Tutu Denson M.D. PROCEDURE: Upper endoscopy with biopsy and banding of esophageal varices. ANESTHESIOLOGIST: Johnny Honeycutt M.D. INSTRUMENT: Olympus adult flexible upper endoscope INDICATION: Upper GI bleeding and anemia. The procedure, risks, benefits, and possible consequences, including hemorrhage, aspiration, perforation and infection, and alternative treatments, were explained to the patient/legal guardian by Dr. Tutu Denson and the patient/legal guardian understood and accepted these risks. DESCRIPTION OF PROCEDURE: After informed consent was obtained and the patient was adequately sedated, Olympus upper endoscope was advanced from mouth into the second portion of the duodenum and retroflexion was performed in the stomach. The patient had evidence of more polypoid area in the antrum of the stomach, which was biopsied. There was one polyp also in the body, which we did not biopsy given the INR was 2.5. The patient had evidence of esophageal varices. The varices are more prominent in the midesophagus rather than in the distal esophagus because the patient had banding before in the distal esophagus. At this time, the upper endoscope was retrieved and the banding device was placed in the tip of the scope. Total of 4 bands were placed in the esophagus, some of them in the distal and some of them in mid esophagus. No complications with this procedure. The patient tolerated the procedure without any complications. SUMMARY OF FINDINGS: 1. Esophageal varices status post banding x4. 2. Gastric polyp. 3. Polypoid area in the antrum, which was biopsied. RECOMMENDATIONS: Keep NPO for today. Start clear liquid diet for tomorrow and advance as tolerated. Monitor hemoglobin and hematocrit, transfuse as needed. Correct coagulopathy. The patient most probably needs workup for cause of cirrhosis. Tutu Denson M.D. DR: JACKY JOB#: [id number] CC:
--- NOTE | 2016-11-23 21:31 | Infectious Diseases Prog Note ---
Assessment/Plan Assessment/Plan A The patient is a 66-year-old male with Sepsis Bronchitis vs Pna Cxray : Bilateral basilar opacities, likely from parenchymal consolidation or edema cough ( productive ) doubt SBP pt has no Abd pain US : Splenomegaly and ascites, indicating portal hypertension, Rapid flu test : Neg Diarrhea x 3 , Ro C Diff Significant for recent history of healthcare-associated pneumonia. History of hepatitis C Cirrhosis. History of elevated CEA PLAN: continue the patient on Levaquin d # 2 Monitor CBC. Monitor BMP. Monitor cultures (blood and sputum). Ultrasound of the abdomen for evaluation of ascites. Monitor chest x-ray CDiff Subjective Constitutional: Denies: anorexia, chills, drenching sweats, fatigue, fever, no symptoms, other Allergies: Coded Allergies: No Known Allergies (Unverified , 08/21/16) Objective Vital Signs Last 24 Hour Vital Signs Date Time Temp Pulse Resp B/P Pulse Ox O2 Delivery O2 Flow Rate FiO2 11/23/16 18:42 68 125/65 11/23/16 16:27 98.2 68 20 125/65 97 Nasal Cannula 3.0 11/23/16 12:00 75 11/23/16 11:44 97.5 67 20 129/69 100 Nasal Cannula 2.0 11/23/16 11:00 97.8 67 21 126/65 100 Nasal Cannula 3.0 11/23/16 10:50 68 23 128/67 99 Nasal Cannula 3.0 11/23/16 10:40 70 22 117/62 99 Nasal Cannula 3.0 11/23/16 10:35 74 18 115/65 99 Simple Mask 6.0 11/23/16 10:30 98.2 75 22 116/75 99 Simple Mask 6.0 11/23/16 10:23 75 20 97 11/23/16 10:22 76 22 97 11/23/16 09:00 58 117/62 11/23/16 08:42 97.9 58 18 117/62 99 Nasal Cannula 2.0 11/23/16 08:00 63 11/23/16 05:06 66 11/23/16 04:00 97.5 59 18 106/57 96 Room Air 11/23/16 00:00 97.9 62 20 107/63 100 Room Air 11/22/16 23:55 67 Height (Feet): 6 Height (Inches): 3.00 Weight (Pounds): 233 HEENT: atraumatic Respiratory/Chest: lungs clear Cardiovascular: regular rhythm Abdomen: no organomegaly Microbiology Date/Time Source Procedure Growth Status 11/22/16 23:00 Nasopharynx Influenza Types A,B Antigen (REBECA) - Final Complete 11/22/16 13:00 Urine,Ureter/Kidney Urine Culture - Preliminary Resulted Laboratory Tests Test 11/22/16 23:00 11/23/16 06:10 Stool Occult Blood Negative (NEGATIVE) White Blood Count 5.4 K/UL (4.8-10.8) Red Blood Count 2.77 M/UL (4.70-6.10) L Hemoglobin 8.8 G/DL (14.2-18.0) L Hematocrit 27.5 % (42.0-52.0) L Mean Corpuscular Volume 99 FL (80-99) Mean Corpuscular Hemoglobin 31.6 PG (27.0-31.0) H Mean Corpuscular Hemoglobin Concent 31.8 G/DL (32.0-36.0) L Red Cell Distribution Width 18.3 % (11.6-14.8) H Platelet Count 81 K/UL (150-450) L Mean Platelet Volume 10.2 FL (6.5-10.1) H Neutrophils (%) (Auto) % (45.0-75.0) Lymphocytes (%) (Auto) % (20.0-45.0) Monocytes (%) (Auto) % (1.0-10.0) Eosinophils (%) (Auto) % (0.0-3.0) Basophils (%) (Auto) % (0.0-2.0) Differential Total Cells Counted 100 Neutrophils % (Manual) 65 % (45-75) Lymphocytes % (Manual) 17 % (20-45) L Monocytes % (Manual) 13 % (1-10) H Eosinophils % (Manual) 5 % (0-3) H Basophils % (Manual) 0 % (0-2) Band Neutrophils 0 % (0-8) Platelet Estimate Decreased L Platelet Morphology Normal Anisocytosis 1+ Phu Cells Occasional Prothrombin Time 26.5 SEC (9.30-11.50) H Prothromb Time International Ratio 2.5 (0.9-1.1) H Activated Partial Thromboplast Time 47 SEC (23-33) H Sodium Level 135 mEQ/L (135-145) Potassium Level 4.3 mEQ/L (3.4-4.9) Chloride Level 103 mEQ/L (98-107) Carbon Dioxide Level 20 mEQ/L (20-30) Anion Gap 12 (5-15) Blood Urea Nitrogen 16 mg/dL (7-23) Creatinine 1.3 mg/dL (0.7-1.2) H Estimat Glomerular Filtration Rate > 60 mL/min (>60) Glucose Level 153 mg/dL (74-106) H Calcium Level 8.0 mg/dL (8.6-10.2) L Total Bilirubin 4.1 mg/dL (0.0-1.2) H Direct Bilirubin 1.8 mg/dL (0.1-0.3) H Aspartate Amino Transf (AST/SGOT) 55 U/L (5-40) H Alanine Aminotransferase (ALT/SGPT) 30 U/L (3-41) Alkaline Phosphatase 45 U/L (40-129) Total Protein 6.8 g/dL (6.6-8.7) Albumin 1.8 g/dL (3.5-5.2) L Globulin 5.0 g/dL Albumin/Globulin Ratio 0.3 (1.0-2.7) L Current Medications Medications (Trade) Dose Ordered Sig/Jayne Route PRN Reason Start Time Stop Time Status Last Admin Dose Admin Acetaminophen 500 mg 500 mg Q8H PRN ORAL For Pain 11/22/16 02:45 12/22/16 02:44 Al Hydroxide/Mg Hydroxide 30 ml 30 ml Q8H PRN ORAL Abdominal cramps 11/22/16 02:45 12/22/16 02:44 Dextrose (Dextrose 50%) STAT PRN IV Hypoglycemia 11/22/16 02:30 12/22/16 02:29 Furosemide (Lasix) 20 mg DAILY ORAL 11/22/16 09:00 12/22/16 08:59 11/23/16 09:06 Guaifenesin (Robitussin) 100 mg Q4H PRN ORAL For Cough 11/22/16 02:45 12/22/16 02:44 11/23/16 06:23 Lactulose (Cephulac) 14.666 gm BID ORAL 11/22/16 09:00 12/22/16 08:59 11/23/16 18:42 Levofloxacin (Levaquin) 100 ml @ 100 mls/hr Q24H IVPB 11/22/16 09:00 11/29/16 08:59 11/23/16 09:05 Octreotide Acetate/Sodium Chloride (SandoSTATIN/NS) 500 ml @ 50 mls/hr Q10H IV 11/22/16 13:00 12/22/16 12:59 11/23/16 18:43 Pantoprazole (Protonix) 40 mg EVERY 12 HOURS IVP 11/22/16 21:00 12/22/16 20:59 11/23/16 09:05 Propranolol HCl (Inderal) 10 mg BID ORAL 11/22/16 09:00 12/22/16 08:59 11/23/16 18:42 Rifaximin (Xifaxan) 550 mg EVERY 12 HOURS ORAL 11/22/16 21:00 11/29/16 20:59 11/23/16 09:09 Spironolactone (Aldactone) 50 mg BID ORAL 11/22/16 09:00 12/22/16 08:59 11/23/16 18:42 LAURENT WYNN M.D. Nov 23, 2016 21:31
--- NOTE | 2016-11-23 22:47 | Diagnostic Imaging Report ---
APPROVED REPORT CPT Code: 87510 Present Symptoms Lower Extremity Edema: Bilateral BILATERAL: Imaging reveals a patent deep venous system bilaterally. There is no evidence of thrombus within the femoral, popliteal or tibial segments. The greater saphenous veins are also within normal limits. Doppler indicates normal spontaneous flow within these segments.
[2016-11-24] VITALS: BP 136/72
[2016-11-24] MEDS: guaiFENesin 100mg/5ml Liq ud ORAL PRN (00:16)
[2016-11-24 04:00] LABS: MEAN CORPUSCULAR HEMOGLOBIN 31.2 PG (27.0-31.0); MEAN CORPUSCULAR HGB CONC 31.4 G/DL (32.0-36.0); MEAN CORPUSCULAR VOLUME 100 FL (80-99); MEAN PLATELET VOLUME 6.4 FL (6.5-10.1); PLATELET COUNT 73 K/UL (150-450); RED BLOOD COUNT 3.18 M/UL (4.70-6.10); RED CELL DISTRIBUTION WIDTH 18.5 % (11.6-14.8); WHITE BLOOD COUNT 6.2 K/UL (4.8-10.8)
[2016-11-24 04:20] LABS: INR 2.3 (0.9-1.1); PROTHROMBIN TIME 23.5 SEC (9.30-11.50)
[2016-11-24 04:28] VITALS: BP 132/76
[2016-11-24 04:31] LABS: ALANINE AMINOTRANSFERASE 27 U/L (3-41); ALBUMIN/GLOBULIN RATIO 0.3 (1.0-2.7); ANION GAP 11 (5-15); ASPARTATE AMINO TRANSFERASE 50 U/L (5-40); CARBON DIOXIDE 21 mEQ/L (20-30); CHLORIDE 103 mEQ/L (98-107); CREATININE 1.2 mg/dL (0.7-1.2); GLOMERULAR FILTRATION RATE > 60 mL/min (>60); HEMOLYSIS 4; POTASSIUM 4.3 mEQ/L (3.4-4.9); SODIUM 135 mEQ/L (135-145); TOTAL PROTEIN 6.9 g/dL (6.6-8.7)
[2016-11-24] MEDS: Octreotide Acetate 500 MCG in Sodium Chloride 499 ML IV SCH (04:43)
[2016-11-24 06:57] LABS: BILIRUBIN,DIRECT 1.9 mg/dL (0.1-0.3)
--- NOTE | 2016-11-24 07:06 | General Progress Note ---
Assessment/Plan Assessment/Plan ASSESSMENT: 1. Thrombocytopenia currently platelet count > 60,000 range likely consistent with end-stage cirrhosis as well as hepatomegaly, hepatosplenomegaly of abdomen as well as CAT of the abdomen and pelvis. 2. Anemia secondary to chronic disease. Ferritin is 2000, Have transfused before 3. Decrease in hemoglobin and hematocrit, rule out gastrointestinal bleed. 4. Microcytic anemia, rule out gastrointestinal bleeding. 5. Leukopenia likely secondary to cirrhosis and hepatosplenomegaly with splenic sequestration.Patient with hepatitis 6. Transaminitis. 7. Alcoholic cirrhosis. 8. Abdominal pain. 9. Coagulopathy secondary to likely liver disease. RECS: 1. Monitor counts. 2. Imaging from before reviewed 3. Paracentesis on prn basis 4. Peripheral smear has been reviewed, no schitocytes 5. Maintain hemoglobin > 7 6. Maintain platelet count above 20k 7. No heparin, aspirin, Plavix to be administered. 8. GI and DVT prophylaxis. 9. Anemia w/u shows anemia chronic disease 10. Discussed with staff. Thank you, Clive Liang MD Subjective Constitutional: Reports: no symptoms HEENT: Reports: no symptoms Cardiovascular: Reports: no symptoms Respiratory: Reports: no symptoms Gastrointestinal/Abdominal: Reports: no symptoms Genitourinary: Reports: no symptoms Neurologic/Psychiatric: Reports: no symptoms Endocrine: Reports: no symptoms Hematologic/Lymphatic: Reports: anemia Allergies: Coded Allergies: No Known Allergies (Unverified , 08/21/16) Subjective stable, no complaints, no hematochezia, no hematemesis reported Objective Last 24 Hour Vital Signs Date Time Temp Pulse Resp B/P Pulse Ox O2 Delivery O2 Flow Rate FiO2 11/24/16 06:28 54 11/24/16 04:28 97.7 60 20 132/76 99 Nasal Cannula 2.0 11/24/16 00:00 61 11/24/16 00:00 98.1 64 20 136/72 100 Nasal Cannula 2.0 11/23/16 20:00 62 11/23/16 20:00 97.0 63 20 136/77 100 Nasal Cannula 2.0 11/23/16 18:42 68 125/65 11/23/16 16:27 98.2 68 20 125/65 97 Nasal Cannula 3.0 11/23/16 12:00 75 11/23/16 11:44 97.5 67 20 129/69 100 Nasal Cannula 2.0 11/23/16 11:00 97.8 67 21 126/65 100 Nasal Cannula 3.0 11/23/16 10:50 68 23 128/67 99 Nasal Cannula 3.0 11/23/16 10:40 70 22 117/62 99 Nasal Cannula 3.0 11/23/16 10:35 74 18 115/65 99 Simple Mask 6.0 11/23/16 10:30 98.2 75 22 116/75 99 Simple Mask 6.0 11/23/16 10:23 75 20 97 11/23/16 10:22 76 22 97 11/23/16 09:00 58 117/62 11/23/16 08:42 97.9 58 18 117/62 99 Nasal Cannula 2.0 11/23/16 08:00 63 Intake and Output 11/23/16 11/24/16 19:00 07:00 Intake Total 1262 ml 250 ml Output Total 850 ml 250 ml Balance 412 ml 0 ml Intake Oral 240 ml IV Total 1022 ml 250 ml Output Urine Total 850 ml Stool Total 250 ml Estimated Blood Loss 0 ml # Bowel Movements 4 Laboratory Tests 11/23/16 21:42: Stool Occult Blood [Pending] 11/24/16 03:30: White Blood Count 6.2, Red Blood Count 3.18L, Hemoglobin 9.9L, Hematocrit 31.6L , Mean Corpuscular Volume 100H, Mean Corpuscular Hemoglobin 31.2H, Mean Corpuscular Hemoglobin Concent 31.4L, Red Cell Distribution Width 18.5H, Platelet Count 73L, Mean Platelet Volume 6.4L, Neutrophils (%) (Auto) , Lymphocytes (%) (Auto) , Monocytes (%) (Auto) , Eosinophils (%) (Auto) , Basophils (%) (Auto) , Prothrombin Time 23.5H, Prothromb Time International Ratio 2.3H, Activated Partial Thromboplast Time 43H, Sodium Level 135, Potassium Level 4.3, Chloride Level 103, Carbon Dioxide Level 21, Anion Gap 11, Blood Urea Nitrogen 15, Creatinine 1.2, Estimat Glomerular Filtration Rate > 60 , Glucose Level 125H, Calcium Level 8.0L, Total Bilirubin 4.2H, Direct Bilirubin 1.9H, Aspartate Amino Transf (AST/SGOT) 50H, Alanine Aminotransferase (ALT/SGPT) 27, Alkaline Phosphatase 45, Total Protein 6.9, Albumin 1.8L, Globulin 5.1, Albumin/Globulin Ratio 0.3L Height (Feet): 6 Height (Inches): 3.00 Weight (Pounds): 109 General Appearance: alert EENT: TMs normal Neck: supple Cardiovascular: regular rhythm Respiratory/Chest: lungs clear Abdomen: soft Extremities: non-tender Edema: 1+ Leg (L), 1+ Leg (R) Neurologic: alert Skin: warm/dry Clive Liang Nov 24, 2016 07:06
[2016-11-24 08:41] VITALS: BP 116/67
[2016-11-24] MEDS: Spironolactone 50mg tab ORAL SCH ×2 (08:54→19:34)
[2016-11-24] MEDS: Rifaximin 550mg tab ORAL SCH ×2 (08:54→21:15)
[2016-11-24] MEDS: Pantoprazole Inj IVP SCH ×2 (08:54→21:16)
[2016-11-24] MEDS: Lactulose 20gm/30ml UDC ORAL SCH ×3 (08:55→19:34)
[2016-11-24] MEDS: Propranolol 10mg tab ORAL SCH ×2 (08:58→19:34)
--- NOTE | 2016-11-24 10:01 | General Progress Note ---
Assessment/Plan Status: stable Assessment/Plan 1. Acute Anemia, GI? Uro?. 2. Cytopenia, bilinear. 5. Alcoholic cirrhosis. 6. Protein-calorie malnourishment. 7. Hepatitic encephalopathy. 8. Pulmonary infiltrate - working in progress. 9. Hep-C 10. Hematuria 9. Gastrointestinal and deep vein thrombosis prophylaxis. PLAN OF CARE: S/p EGD and blood transfusion The patient remained in medically guarded prognosis. urology consult Negative result for occult blood, Hematuria?? cause of acute Anemia? work in progress Subjective ROS Limited/Unobtainable: No Constitutional: Reports: malaise HEENT: Reports: no symptoms Cardiovascular: Reports: no symptoms Respiratory: Reports: no symptoms Allergies: Coded Allergies: No Known Allergies (Unverified , 08/21/16) Objective Last 24 Hour Vital Signs Date Time Temp Pulse Resp B/P Pulse Ox O2 Delivery O2 Flow Rate FiO2 11/24/16 08:58 59 116/67 11/24/16 08:41 97.0 59 20 116/67 100 Nasal Cannula 3.0 11/24/16 06:28 54 11/24/16 04:28 97.7 60 20 132/76 99 Nasal Cannula 2.0 11/24/16 00:00 61 11/24/16 00:00 98.1 64 20 136/72 100 Nasal Cannula 2.0 11/23/16 20:00 62 11/23/16 20:00 97.0 63 20 136/77 100 Nasal Cannula 2.0 11/23/16 18:42 68 125/65 11/23/16 16:27 98.2 68 20 125/65 97 Nasal Cannula 3.0 11/23/16 12:00 75 11/23/16 11:44 97.5 67 20 129/69 100 Nasal Cannula 2.0 11/23/16 11:00 97.8 67 21 126/65 100 Nasal Cannula 3.0 11/23/16 10:50 68 23 128/67 99 Nasal Cannula 3.0 11/23/16 10:40 70 22 117/62 99 Nasal Cannula 3.0 11/23/16 10:35 74 18 115/65 99 Simple Mask 6.0 11/23/16 10:30 98.2 75 22 116/75 99 Simple Mask 6.0 11/23/16 10:23 75 20 97 11/23/16 10:22 76 22 97 Intake and Output 11/23/16 11/24/16 19:00 07:00 Intake Total 1262 ml 350 ml Output Total 850 ml 250 ml Balance 412 ml 100 ml Intake Oral 240 ml IV Total 1022 ml 350 ml Output Urine Total 850 ml Stool Total 250 ml Estimated Blood Loss 0 ml # Bowel Movements 4 Laboratory Tests 11/23/16 21:42: Stool Occult Blood [Pending] 11/24/16 03:30: White Blood Count 6.2, Red Blood Count 3.18L, Hemoglobin 9.9L, Hematocrit 31.6L , Mean Corpuscular Volume 100H, Mean Corpuscular Hemoglobin 31.2H, Mean Corpuscular Hemoglobin Concent 31.4L, Red Cell Distribution Width 18.5H, Platelet Count 73L, Mean Platelet Volume 6.4L, Neutrophils (%) (Auto) , Lymphocytes (%) (Auto) , Monocytes (%) (Auto) , Eosinophils (%) (Auto) , Basophils (%) (Auto) , Prothrombin Time 23.5H, Prothromb Time International Ratio 2.3H, Activated Partial Thromboplast Time 43H, Sodium Level 135, Potassium Level 4.3, Chloride Level 103, Carbon Dioxide Level 21, Anion Gap 11, Blood Urea Nitrogen 15, Creatinine 1.2, Estimat Glomerular Filtration Rate > 60 , Glucose Level 125H, Calcium Level 8.0L, Total Bilirubin 4.2H, Direct Bilirubin 1.9H, Aspartate Amino Transf (AST/SGOT) 50H, Alanine Aminotransferase (ALT/SGPT) 27, Alkaline Phosphatase 45, Total Protein 6.9, Albumin 1.8L, Globulin 5.1, Albumin/Globulin Ratio 0.3L 11/24/16 08:00: Stool Occult Blood [Pending] Height (Feet): 6 Height (Inches): 3.00 Weight (Pounds): 109 General Appearance: no apparent distress EENT: PERRL/EOMI Neck: non-tender Cardiovascular: normal rate Respiratory/Chest: lungs clear Abdomen: other - prominent Edema: 2+ Leg (R), 2+ Pedal (L), 2+ Pedal (R) Neurologic: vice president safety II-XII grossly normal, other - epidoses of Noni Hawthorne MD Nov 24, 2016 10:01
[2016-11-24 11:38] VITALS: BP 117/71
--- NOTE | 2016-11-24 11:41 | Infectious Diseases Prog Note ---
Assessment/Plan Assessment/Plan A The patient is a 66-year-old male with Sepsis , improving Bronchitis vs Pna Cxray : Bilateral basilar opacities, likely from parenchymal consolidation or edema cough ( productive ) doubt SBP pt has no Abd pain US : Splenomegaly and ascites, indicating portal hypertension, Rapid flu test : Neg Diarrhea x 3 , Ro C Diff UCx : GPC ( ? signif. low count ) Significant for recent history of healthcare-associated pneumonia. History of hepatitis C Cirrhosis. History of elevated CEA PLAN: continue the patient on Levaquin d # 3 / 7 Monitor CBC. Monitor BMP. Monitor cultures (blood and sputum, Ur ) Monitor chest x-ray CDiff Subjective Constitutional: Denies: anorexia, chills, drenching sweats, fatigue, fever, no symptoms, other Allergies: Coded Allergies: No Known Allergies (Unverified , 08/21/16) Objective Vital Signs Last 24 Hour Vital Signs Date Time Temp Pulse Resp B/P Pulse Ox O2 Delivery O2 Flow Rate FiO2 11/24/16 11:38 97.0 53 20 117/71 100 Nasal Cannula 3.0 11/24/16 08:58 59 116/67 11/24/16 08:41 97.0 59 20 116/67 100 Nasal Cannula 3.0 11/24/16 08:00 67 11/24/16 06:28 54 11/24/16 04:28 97.7 60 20 132/76 99 Nasal Cannula 2.0 11/24/16 00:00 61 11/24/16 00:00 98.1 64 20 136/72 100 Nasal Cannula 2.0 11/23/16 20:00 62 11/23/16 20:00 97.0 63 20 136/77 100 Nasal Cannula 2.0 11/23/16 18:42 68 125/65 11/23/16 16:27 98.2 68 20 125/65 97 Nasal Cannula 3.0 11/23/16 12:00 75 11/23/16 11:44 97.5 67 20 129/69 100 Nasal Cannula 2.0 Height (Feet): 6 Height (Inches): 3.00 Weight (Pounds): 109 HEENT: anicteric Respiratory/Chest: normal breath sounds Cardiovascular: regular rhythm Abdomen: no organomegaly Microbiology Date/Time Source Procedure Growth Status 11/22/16 08:10 Blood Blood Culture - Preliminary NO GROWTH AFTER 24 HOURS Resulted 11/22/16 08:00 Blood Blood Culture - Preliminary NO GROWTH AFTER 24 HOURS Resulted 11/22/16 23:00 Nasopharynx Influenza Types A,B Antigen (REBECA) - Final Complete 11/22/16 05:20 Nasal Nares MRSA Culture - Final NO METHICILLIN RESISTANT STAPH AUREUS... Complete 11/22/16 13:00 Urine,Ureter/Kidney Urine Culture - Preliminary Gram Positive Cocci Resulted 11/22/16 01:45 Rectum VRE Culture - Final NO VANCOMYCIN RESISTANT ENTEROCOCCUS ... Complete Laboratory Tests Test 11/23/16 21:42 11/24/16 03:30 11/24/16 08:00 Stool Occult Blood Pending Pending White Blood Count 6.2 K/UL (4.8-10.8) Red Blood Count 3.18 M/UL (4.70-6.10) L Hemoglobin 9.9 G/DL (14.2-18.0) L Hematocrit 31.6 % (42.0-52.0) L Mean Corpuscular Volume 100 FL (80-99) H Mean Corpuscular Hemoglobin 31.2 PG (27.0-31.0) H Mean Corpuscular Hemoglobin Concent 31.4 G/DL (32.0-36.0) L Red Cell Distribution Width 18.5 % (11.6-14.8) H Platelet Count 73 K/UL (150-450) L Mean Platelet Volume 6.4 FL (6.5-10.1) L Neutrophils (%) (Auto) % (45.0-75.0) Lymphocytes (%) (Auto) % (20.0-45.0) Monocytes (%) (Auto) % (1.0-10.0) Eosinophils (%) (Auto) % (0.0-3.0) Basophils (%) (Auto) % (0.0-2.0) Prothrombin Time 23.5 SEC (9.30-11.50) H Prothromb Time International Ratio 2.3 (0.9-1.1) H Activated Partial Thromboplast Time 43 SEC (23-33) H Sodium Level 135 mEQ/L (135-145) Potassium Level 4.3 mEQ/L (3.4-4.9) Chloride Level 103 mEQ/L (98-107) Carbon Dioxide Level 21 mEQ/L (20-30) Anion Gap 11 (5-15) Blood Urea Nitrogen 15 mg/dL (7-23) Creatinine 1.2 mg/dL (0.7-1.2) Estimat Glomerular Filtration Rate > 60 mL/min (>60) Glucose Level 125 mg/dL (74-106) H Calcium Level 8.0 mg/dL (8.6-10.2) L Total Bilirubin 4.2 mg/dL (0.0-1.2) H Direct Bilirubin 1.9 mg/dL (0.1-0.3) H Aspartate Amino Transf (AST/SGOT) 50 U/L (5-40) H Alanine Aminotransferase (ALT/SGPT) 27 U/L (3-41) Alkaline Phosphatase 45 U/L (40-129) Total Protein 6.9 g/dL (6.6-8.7) Albumin 1.8 g/dL (3.5-5.2) L Globulin 5.1 g/dL Albumin/Globulin Ratio 0.3 (1.0-2.7) L Current Medications Medications (Trade) Dose Ordered Sig/Jayne Route PRN Reason Start Time Stop Time Status Last Admin Dose Admin Acetaminophen 500 mg 500 mg Q8H PRN ORAL For Pain 11/22/16 02:45 12/22/16 02:44 11/23/16 21:57 Al Hydroxide/Mg Hydroxide 30 ml 30 ml Q8H PRN ORAL Abdominal cramps 11/22/16 02:45 12/22/16 02:44 Dextrose (Dextrose 50%) STAT PRN IV Hypoglycemia 11/22/16 02:30 12/22/16 02:29 Furosemide (Lasix) 20 mg DAILY ORAL 11/22/16 09:00 12/22/16 08:59 11/24/16 08:54 Guaifenesin (Robitussin) 100 mg Q4H PRN ORAL For Cough 11/22/16 02:45 12/22/16 02:44 11/24/16 00:16 Lactulose (Cephulac) 14.666 gm BID ORAL 11/22/16 09:00 12/22/16 08:59 11/23/16 18:42 Levofloxacin (Levaquin) 100 ml @ 100 mls/hr Q24H IVPB 11/22/16 09:00 11/29/16 08:59 11/24/16 08:54 Octreotide Acetate/Sodium Chloride (SandoSTATIN/NS) 500 ml @ 50 mls/hr Q10H IV 11/22/16 13:00 12/22/16 12:59 11/24/16 04:43 Pantoprazole (Protonix) 40 mg EVERY 12 HOURS IVP 11/22/16 21:00 12/22/16 20:59 11/24/16 08:54 Propranolol HCl (Inderal) 10 mg BID ORAL 11/22/16 09:00 12/22/16 08:59 11/23/16 18:42 Rifaximin (Xifaxan) 550 mg EVERY 12 HOURS ORAL 11/22/16 21:00 11/29/16 20:59 11/24/16 08:54 Spironolactone (Aldactone) 50 mg BID ORAL 11/22/16 09:00 12/22/16 08:59 11/24/16 08:54 LAURENT WYNN M.D. Nov 24, 2016 11:41
--- NOTE | 2016-11-24 15:12 | Cardiology Report ---
APPROVED REPORT EXAM: Two-dimensional and M-mode echocardiogram with Doppler and color Doppler. INDICATION Congestive Heart Failure M-Mode DIMENSIONS IVSd0.7 (0.7-1.1cm)Left Atrium (MM)4.2 (1.6-4.0cm) LVDd4.3 (3.5-5.6cm)Aortic Root3.3 (2.0-3.7cm) PWd0.8 (0.7-1.1cm)Aortic Cusp Exc.1.8 (1.5-2.0cm) LVDs2.7 (2.5-4.0cm) Normal left ventricular chamber size, systolic function and wall motion. Left ventricular ejection fraction estimated to be 55-60%. No evidence of left ventricular hypertrophy. No evidence of pericardial fat or effusion. Mild bi-atrial and right ventricular enlargement by 2D. Mild focal aortic valve sclerosis with adequate cusp excursion Thickened mitral valve leaflets with normal excursion. Mild mitral annulus and aortic root calcification. Pulmonic valve not well visualized. Normal tricuspid valve structure. IVC dilated at 2.7cm with no physiologic collapse. RA pressure of 20mmHg. A color flow and spectral Doppler study was performed and revealed: No aortic regurgitation. Trace mitral regurgitation. Mitral inflow velocities indicates possible pseudo normalization pattern implying significant left ventricular diastolic dysfunction. Mild tricuspid regurgitation. Tricuspid systolic velocities suggests peak right ventricular systolic pressure of 43 mmHg Consistent with mild pulmonary hypertension.
[2016-11-24] MEDS ORDERED: Tubing Blood Filter IV ONE (15:28)
[2016-11-24] MEDS ORDERED: NS 275ml ONE (15:28)
--- NOTE | 2016-11-24 15:33 | General Progress Note ---
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 ICD Codes: I85.00 - Esophageal varices without bleeding SNOMED: 80063808, 640554379 (2) Pancytopenia ICD Codes: D61.818 - Other pancytopenia SNOMED: 411675278 (3) Alcoholic cirrhosis ICD Codes: K70.30 - Alcoholic cirrhosis of liver without ascites SNOMED: 262797404, 636954286 Status Narrative dc octreotide advance diet ppi lactulose and xifaxan propanolol Subjective ROS Limited/Unobtainable: Yes Allergies: Coded Allergies: No Known Allergies (Unverified , 08/21/16) All Systems: reviewed and negative except above Objective Last 24 Hour Vital Signs Date Time Temp Pulse Resp B/P Pulse Ox O2 Delivery O2 Flow Rate FiO2 11/24/16 12:00 52 11/24/16 11:38 97.0 53 20 117/71 100 Nasal Cannula 3.0 11/24/16 08:58 59 116/67 11/24/16 08:41 97.0 59 20 116/67 100 Nasal Cannula 3.0 11/24/16 08:00 67 11/24/16 06:28 54 11/24/16 04:28 97.7 60 20 132/76 99 Nasal Cannula 2.0 11/24/16 00:00 61 11/24/16 00:00 98.1 64 20 136/72 100 Nasal Cannula 2.0 11/23/16 20:00 62 11/23/16 20:00 97.0 63 20 136/77 100 Nasal Cannula 2.0 11/23/16 18:42 68 125/65 11/23/16 16:27 98.2 68 20 125/65 97 Nasal Cannula 3.0 Intake and Output 11/23/16 11/24/16 19:00 07:00 Intake Total 1262 ml 350 ml Output Total 850 ml 250 ml Balance 412 ml 100 ml Intake Oral 240 ml IV Total 1022 ml 350 ml Output Urine Total 850 ml Stool Total 250 ml Estimated Blood Loss 0 ml # Bowel Movements 4 Laboratory Tests 11/23/16 21:42: Stool Occult Blood Positive 11/24/16 03:30: White Blood Count 6.2, Red Blood Count 3.18L, Hemoglobin 9.9L, Hematocrit 31.6L , Mean Corpuscular Volume 100H, Mean Corpuscular Hemoglobin 31.2H, Mean Corpuscular Hemoglobin Concent 31.4L, Red Cell Distribution Width 18.5H, Platelet Count 73L, Mean Platelet Volume 6.4L, Neutrophils (%) (Auto) , Lymphocytes (%) (Auto) , Monocytes (%) (Auto) , Eosinophils (%) (Auto) , Basophils (%) (Auto) , Prothrombin Time 23.5H, Prothromb Time International Ratio 2.3H, Activated Partial Thromboplast Time 43H, Sodium Level 135, Potassium Level 4.3, Chloride Level 103, Carbon Dioxide Level 21, Anion Gap 11, Blood Urea Nitrogen 15, Creatinine 1.2, Estimat Glomerular Filtration Rate > 60 , Glucose Level 125H, Calcium Level 8.0L, Total Bilirubin 4.2H, Direct Bilirubin 1.9H, Aspartate Amino Transf (AST/SGOT) 50H, Alanine Aminotransferase (ALT/SGPT) 27, Alkaline Phosphatase 45, Total Protein 6.9, Albumin 1.8L, Globulin 5.1, Albumin/Globulin Ratio 0.3L 11/24/16 08:00: Stool Occult Blood Positive Height (Feet): 6 Height (Inches): 3.00 Weight (Pounds): 109 General Appearance: no apparent distress EENT: normal ENT inspection Neck: supple Cardiovascular: normal rate Respiratory/Chest: decreased breath sounds Abdomen: normal bowel sounds, non tender, soft Extremities: non-tender ELIO OH Nov 24, 2016 15:33
[2016-11-24 16:00] VITALS: BP 108/59
[2016-11-24 20:00] VITALS: BP 107/60
--- NOTE | 2016-11-24 20:08 | Consultation ---
DATE OF CONSULTATION: 11/24/2016 REFERRING PHYSICIAN: Noni Bush M.D. CONSULTING PHYSICIAN: Rafael Hdz M.D. REASON FOR CONSULTATION: For evaluation of microhematuria. HISTORY OF PRESENT ILLNESS: This is a 66-year-old male, he was admitted to the hospital because of shortness of breath and possible pneumonia. The patient was also noted to have microhematuria and UTI and Urology evaluation requested. He is able to pass his urine. He has some urinary frequency. Denies gross hematuria. He has mild dysuria. PAST MEDICAL HISTORY: Significant for history of hypoxic encephalopathy, liver cirrhosis, pancytopenia, and hepatitis C. PAST SURGICAL HISTORY: Unknown. CURRENT MEDICATIONS: In the hospital, the patient is on Protonix, Xifaxan, octreotide, Lasix, Cephulac, Aldactone, Inderal, Levaquin, Mylanta, Robitussin, Tylenol, and dextrose. ALLERGIES: No known drug allergies. SOCIAL HISTORY: The patient apparently does have a history of alcohol and drug use in the past. FAMILY HISTORY: Noncontributory. REVIEW OF SYSTEMS: As above. PHYSICAL EXAMINATION: GENERAL: This is an elderly male, in no acute distress. VITAL SIGNS: Temperature 97 degrees, blood pressure 117/71, pulse 53, and respirations 20. HEENT: Head is normocephalic. NECK: Supple. ABDOMEN: Soft. BACK: There is no CVA tenderness. GENITOURINARY: Significant enlargement of the scrotum in the left side hernia or possibly hydrocele. RECTAL: Firm prostate about 30 g. EXTREMITIES: No clubbing or cyanosis. LABORATORY DATA: His white count is 6.2, hemoglobin 9.9, and platelets are 73,000. BUN is 16, creatinine 1.2, and potassium 4.3. INR is 2.3 and PTT 23.5. UA shows 10 to 15 RBCs, 5 to 10 WBCs, positive nitrites, and positive for protein. Urine culture shows gram-positive cocci. Blood culture negative so far. DIAGNOSTIC IMAGING STUDIES: The patient had abdominal ultrasound, the kidneys were reported to be normal with no hydronephrosis. There was evidence of hepatic cirrhosis. IMPRESSION: 1. Microhematuria. 2. Urinary tract infection. 3. Benign prostatic hypertrophy. 4. History of urinary frequency. 5. Rule out neurogenic bladder. 6. Proteinuria. 7. Left inguinal hernia. 8. Possible hydrocele. PLAN AND DISCUSSION: Again as noted above. The patient does have hematuria presumably secondary to UTI and also because he is coagulopathic with low platelets and high INR. I agree with antibiotics as ordered. He will be monitored clinically. At some point, he will need to have cystoscopy to evaluate his lower urinary tract. I will also consider adding Flomax for his BPH. I will follow the patient. Any other recommendation will be forthcoming. Thank you, Dr. Bush, for asking me to see this patient in consultation Rafael Hdz M.D. DR: Sumanth JOB#: [id number] CC:
[2016-11-24] MEDS: Tamsulosin 0.4mg cap ORAL SCH (21:15)
--- NOTE | 2016-11-24 23:18 | Cardiology Progress Note ---
Assessment/Plan Assessment/Plan 1. Hypotension, this is most likely due to hypoalbuminemia in the patient with liver cirrhosis, off HCTZ. 2. Normal left ventricular systolic function with no evidence of wall motion abnormalities. 3. Liver cirrhosis. 4. Pancytopenia. 5. Gastrointestinal bleed with profound anemia. Subjective Subjective Sinus rhythm at 80. Objective Last 24 Hour Vital Signs Date Time Temp Pulse Resp B/P Pulse Ox O2 Delivery O2 Flow Rate FiO2 11/24/16 20:00 97.7 81 18 107/60 Nasal Cannula 2.0 98 11/24/16 19:34 58 108/59 11/24/16 16:00 97.5 54 18 108/59 Nasal Cannula 2.0 95 11/24/16 16:00 58 11/24/16 12:00 52 11/24/16 11:38 97.0 53 20 117/71 100 Nasal Cannula 3.0 11/24/16 08:58 59 116/67 11/24/16 08:41 97.0 59 20 116/67 100 Nasal Cannula 3.0 11/24/16 08:00 67 11/24/16 06:28 54 11/24/16 04:28 97.7 60 20 132/76 99 Nasal Cannula 2.0 11/24/16 00:00 61 11/24/16 00:00 98.1 64 20 136/72 100 Nasal Cannula 2.0 Intake and Output 11/23/16 11/24/16 19:00 07:00 Intake Total 1262 ml 350 ml Output Total 850 ml 250 ml Balance 412 ml 100 ml Intake Oral 240 ml IV Total 1022 ml 350 ml Output Urine Total 850 ml Stool Total 250 ml Estimated Blood Loss 0 ml # Bowel Movements 4 2D Echo: LVEF 55%, LETICIA, RVE, Pseudonormal LV physiology, RVSP 43 mmHg Laboratory Tests Test 11/24/16 03:30 11/24/16 08:00 White Blood Count 6.2 K/UL (4.8-10.8) Red Blood Count 3.18 M/UL (4.70-6.10) L Hemoglobin 9.9 G/DL (14.2-18.0) L Hematocrit 31.6 % (42.0-52.0) L Mean Corpuscular Volume 100 FL (80-99) H Mean Corpuscular Hemoglobin 31.2 PG (27.0-31.0) H Mean Corpuscular Hemoglobin Concent 31.4 G/DL (32.0-36.0) L Red Cell Distribution Width 18.5 % (11.6-14.8) H Platelet Count 73 K/UL (150-450) L Mean Platelet Volume 6.4 FL (6.5-10.1) L Neutrophils (%) (Auto) % (45.0-75.0) Lymphocytes (%) (Auto) % (20.0-45.0) Monocytes (%) (Auto) % (1.0-10.0) Eosinophils (%) (Auto) % (0.0-3.0) Basophils (%) (Auto) % (0.0-2.0) Prothrombin Time 23.5 SEC (9.30-11.50) H Prothromb Time International Ratio 2.3 (0.9-1.1) H Activated Partial Thromboplast Time 43 SEC (23-33) H Sodium Level 135 mEQ/L (135-145) Potassium Level 4.3 mEQ/L (3.4-4.9) Chloride Level 103 mEQ/L (98-107) Carbon Dioxide Level 21 mEQ/L (20-30) Anion Gap 11 (5-15) Blood Urea Nitrogen 15 mg/dL (7-23) Creatinine 1.2 mg/dL (0.7-1.2) Estimat Glomerular Filtration Rate > 60 mL/min (>60) Glucose Level 125 mg/dL (74-106) H Calcium Level 8.0 mg/dL (8.6-10.2) L Total Bilirubin 4.2 mg/dL (0.0-1.2) H Direct Bilirubin 1.9 mg/dL (0.1-0.3) H Aspartate Amino Transf (AST/SGOT) 50 U/L (5-40) H Alanine Aminotransferase (ALT/SGPT) 27 U/L (3-41) Alkaline Phosphatase 45 U/L (40-129) Total Protein 6.9 g/dL (6.6-8.7) Albumin 1.8 g/dL (3.5-5.2) L Globulin 5.1 g/dL Albumin/Globulin Ratio 0.3 (1.0-2.7) L Stool Occult Blood Positive (NEGATIVE) Microbiology Date/Time Source Procedure Growth Status 11/22/16 08:10 Blood Blood Culture - Preliminary NO GROWTH AFTER 24 HOURS Resulted 11/22/16 08:00 Blood Blood Culture - Preliminary NO GROWTH AFTER 24 HOURS Resulted 11/22/16 23:00 Nasopharynx Influenza Types A,B Antigen (REBECA) - Final Complete 11/22/16 05:20 Nasal Nares MRSA Culture - Final NO METHICILLIN RESISTANT STAPH AUREUS... Complete 11/22/16 13:00 Urine,Ureter/Kidney Urine Culture - Preliminary Gram Positive Cocci Resulted 11/22/16 01:45 Rectum VRE Culture - Final NO VANCOMYCIN RESISTANT ENTEROCOCCUS ... Complete Objective GENERAL: The patient is a very delightful 66-year-old gentleman, in mild to minimal respiratory distress. Alert and orient x4. HEENT: Atraumatic and normocephalic. Pupils are equal, round, and reactive to light and accommodation. Extraocular muscles intact. NECK: JVP is less than 5 cm. No carotid bruits. Carotid upstrokes, 2+ bilaterally. CARDIOVASCULAR: Normal S1 and S2. There is 2/6 mid systolic murmur. PMI is at fourth intercostal space at midclavicular line. LUNGS: Diminished breath sounds in both bases in particular in the left side there is increased dullness on percussion. ABDOMEN: Distended, nontender, and soft. Positive bowel sounds. EXTREMITIES: There is 2+ bilateral lower extremity edema. LUNGS: Clear to auscultation bilaterally. JADEN VAZQUEZ Nov 24, 2016 23:18
[2016-11-25 00:55] VITALS: BP 112/58
[2016-11-25] MEDS: guaiFENesin 100mg/5ml Liq ud ORAL PRN ×2 (01:11→05:16)
[2016-11-25 04:12] VITALS: BP 107/55
[2016-11-25 06:14] LABS: MEAN CORPUSCULAR HEMOGLOBIN 31.8 PG (27.0-31.0); MEAN CORPUSCULAR HGB CONC 31.9 G/DL (32.0-36.0); MEAN CORPUSCULAR VOLUME 99 FL (80-99); MEAN PLATELET VOLUME 5.8 FL (6.5-10.1); PLATELET COUNT 73 K/UL (150-450); RED BLOOD COUNT 2.87 M/UL (4.70-6.10); RED CELL DISTRIBUTION WIDTH 17.5 % (11.6-14.8); WHITE BLOOD COUNT 4.7 K/UL (4.8-10.8)
[2016-11-25 06:31] LABS: ALANINE AMINOTRANSFERASE 23 U/L (3-41); ALBUMIN/GLOBULIN RATIO 0.3 (1.0-2.7); ANION GAP 12 (5-15); ASPARTATE AMINO TRANSFERASE 45 U/L (5-40); CALCIUM 8.1 mg/dL (8.6-10.2); CARBON DIOXIDE 22 mEQ/L (20-30); CHLORIDE 100 mEQ/L (98-107); CREATININE 1.1 mg/dL (0.7-1.2); GLOMERULAR FILTRATION RATE > 60 mL/min (>60); HEMOLYSIS 2; POTASSIUM 3.9 mEQ/L (3.4-4.9); SODIUM 134 mEQ/L (135-145); TOTAL PROTEIN 6.4 g/dL (6.6-8.7)
[2016-11-25 06:50] LABS: BILIRUBIN,DIRECT 1.7 mg/dL (0.1-0.3)
[2016-11-25 08:00] VITALS: BP 103/49
[2016-11-25] MEDS: Pantoprazole Inj IVP SCH (08:58)
[2016-11-25] MEDS: Propranolol 10mg tab ORAL SCH ×2 (08:59→19:13)
[2016-11-25] MEDS: Lactulose 20gm/30ml UDC ORAL SCH ×2 (09:00→18:00)
[2016-11-25] MEDS: Rifaximin 550mg tab ORAL SCH ×2 (09:02→21:17)
[2016-11-25] MEDS: Spironolactone 50mg tab ORAL SCH ×2 (09:08→19:13)
--- NOTE | 2016-11-25 09:11 | Infectious Diseases Prog Note ---
Assessment/Plan Assessment/Plan ASSESSMENT: 66-year-old male with: Sepsis SP Bronchitis vs Pna Cxray : Bilateral basilar opacities, likely from parenchymal consolidation or edema cough ( productive ) Negative influenza doubt SBP pt has no Abd pain US : Splenomegaly and ascites, indicating portal hypertension, Negative HIV Diarrhea x 3 , Ro C Diff ( on lactulose ) UCx : VSE.faecalis ( ? signif. low count ) Leukopenia, afebrile Chronic HCV cirrhosis with cytopenias, elevated LFTs, hypoalbuminemia SP EGD with banding 11/23 - path(-) malignancy Hematuria NKDA Full Code PLAN: continue Levaquin d# 4 / f/u final cultures Monitor CBC, temperatures Monitor CMP Monitor chest x-ray transfuse prn Subjective Allergies: Coded Allergies: No Known Allergies (Unverified , 08/21/16) Subjective remains afebrile. appears comfortable Objective Vital Signs Last 24 Hour Vital Signs Date Time Temp Pulse Resp B/P Pulse Ox O2 Delivery O2 Flow Rate FiO2 11/25/16 04:12 98.5 58 20 107/55 98 Nasal Cannula 3.0 11/25/16 04:00 55 11/25/16 00:55 98.2 64 20 112/58 97 Nasal Cannula 3.0 11/25/16 00:00 56 11/24/16 20:00 97.7 81 18 107/60 Nasal Cannula 2.0 98 11/24/16 20:00 59 11/24/16 19:34 58 108/59 11/24/16 16:00 97.5 54 18 108/59 Nasal Cannula 2.0 95 11/24/16 16:00 58 11/24/16 12:00 52 11/24/16 11:38 97.0 53 20 117/71 100 Nasal Cannula 3.0 Height (Feet): 6 Height (Inches): 3.00 Weight (Pounds): 236 General Appearance: no acute distress Respiratory/Chest: no respiratory distress Cardiovascular: normal rate, regular rhythm Abdomen: normal bowel sounds, soft, non tender Microbiology Date/Time Source Procedure Growth Status 11/22/16 23:00 Nasopharynx Influenza Types A,B Antigen (REBECA) - Final Complete 11/22/16 13:00 Urine,Ureter/Kidney Urine Culture - Final Enterococcus Faecalis Complete Laboratory Tests Test 11/25/16 05:15 White Blood Count 4.7 K/UL (4.8-10.8) L Red Blood Count 2.87 M/UL (4.70-6.10) L Hemoglobin 9.1 G/DL (14.2-18.0) L Hematocrit 28.6 % (42.0-52.0) L Mean Corpuscular Volume 99 FL (80-99) Mean Corpuscular Hemoglobin 31.8 PG (27.0-31.0) H Mean Corpuscular Hemoglobin Concent 31.9 G/DL (32.0-36.0) L Red Cell Distribution Width 17.5 % (11.6-14.8) H Platelet Count 73 K/UL (150-450) L Mean Platelet Volume 5.8 FL (6.5-10.1) L Neutrophils (%) (Auto) % (45.0-75.0) Lymphocytes (%) (Auto) % (20.0-45.0) Monocytes (%) (Auto) % (1.0-10.0) Eosinophils (%) (Auto) % (0.0-3.0) Basophils (%) (Auto) % (0.0-2.0) Neutrophils % (Manual) Pending Lymphocytes % (Manual) Pending Platelet Estimate Pending Platelet Morphology Pending Sodium Level 134 mEQ/L (135-145) L Potassium Level 3.9 mEQ/L (3.4-4.9) Chloride Level 100 mEQ/L (98-107) Carbon Dioxide Level 22 mEQ/L (20-30) Anion Gap 12 (5-15) Blood Urea Nitrogen 12 mg/dL (7-23) Creatinine 1.1 mg/dL (0.7-1.2) Estimat Glomerular Filtration Rate > 60 mL/min (>60) Glucose Level 116 mg/dL (74-106) H Calcium Level 8.1 mg/dL (8.6-10.2) L Total Bilirubin 3.8 mg/dL (0.0-1.2) H Direct Bilirubin 1.7 mg/dL (0.1-0.3) H Aspartate Amino Transf (AST/SGOT) 45 U/L (5-40) H Alanine Aminotransferase (ALT/SGPT) 23 U/L (3-41) Alkaline Phosphatase 47 U/L (40-129) Total Protein 6.4 g/dL (6.6-8.7) L Albumin 1.7 g/dL (3.5-5.2) L Globulin 4.7 g/dL Albumin/Globulin Ratio 0.3 (1.0-2.7) L Current Medications Medications (Trade) Dose Ordered Sig/Jayne Route PRN Reason Start Time Stop Time Status Last Admin Dose Admin Acetaminophen (Tylenol) 500 mg Q8H PRN ORAL For Pain 11/22/16 02:45 12/22/16 02:44 11/23/16 21:57 Al Hydroxide/Mg Hydroxide 30 ml 30 ml Q8H PRN ORAL Abdominal cramps 11/22/16 02:45 12/22/16 02:44 Dextrose (Dextrose 50%) STAT PRN IV Hypoglycemia 11/22/16 02:30 12/22/16 02:29 Furosemide (Lasix) 20 mg DAILY ORAL 11/22/16 09:00 12/22/16 08:59 11/24/16 08:54 Guaifenesin (Robitussin) 100 mg Q4H PRN ORAL For Cough 11/22/16 02:45 12/22/16 02:44 11/25/16 05:16 Lactulose (Cephulac) 14.666 gm BID ORAL 11/22/16 09:00 12/22/16 08:59 11/23/16 18:42 Levofloxacin (Levaquin) 100 ml @ 100 mls/hr Q24H IVPB 11/22/16 09:00 11/29/16 08:59 11/24/16 08:54 Pantoprazole (Protonix) 40 mg EVERY 12 HOURS IVP 11/22/16 21:00 12/22/16 20:59 11/24/16 21:16 Propranolol HCl (Inderal) 10 mg BID ORAL 11/22/16 09:00 12/22/16 08:59 11/24/16 19:34 Rifaximin (Xifaxan) 550 mg EVERY 12 HOURS ORAL 11/22/16 21:00 11/29/16 20:59 11/24/16 21:15 Spironolactone (Aldactone) 50 mg BID ORAL 11/22/16 09:00 12/22/16 08:59 11/24/16 19:34 Tamsulosin HCl (Flomax) 0.4 mg BEDTIME ORAL 11/24/16 21:00 12/24/16 20:59 11/24/16 21:15 KAREN BERNAL Nov 25, 2016 09:11
[2016-11-25 09:18] LABS: ANISOCYTOSIS 1+; BAND NEUTROPHILS % (MANUAL) 0 % (0-8); BASOPHILS % (MANUAL) 0 % (0-2); EOSINOPHILS % (MANUAL) 5 % (0-3); HYPOCHROMASIA 1+; LYMPHOCYTES % (MANUAL) 43 % (20-45); NEUTROPHILS % (MANUAL) 37 % (45-75); PLATELET ESTIMATE DECREASED; TOTAL CELLS COUNTED 100
[2016-11-25 09:19] LABS: BURR CELLS OCCASIONAL; PLATELET MORPHOLOGY NORMAL
[2016-11-25] MEDS ORDERED: Tubing IV Secondary IV ONE (09:56)
[2016-11-25] MEDS ORDERED: Haloperidol 5mg/ml Inj IM ONE (10:30)
--- NOTE | 2016-11-25 10:38 | General Progress Note ---
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 ICD Codes: I85.00 - Esophageal varices without bleeding SNOMED: 72972339, 662536834 (2) Pancytopenia ICD Codes: D61.818 - Other pancytopenia SNOMED: 140863676 (3) Alcoholic cirrhosis ICD Codes: K70.30 - Alcoholic cirrhosis of liver without ascites SNOMED: 077818110, 823675521 Assessment/Plan advance diet continue current meds ok to dc repeat EGD as out patient in 4 weeks Subjective ROS Limited/Unobtainable: Yes Allergies: Coded Allergies: No Known Allergies (Unverified , 08/21/16) Subjective wants to eat Objective Last 24 Hour Vital Signs Date Time Temp Pulse Resp B/P Pulse Ox O2 Delivery O2 Flow Rate FiO2 11/25/16 08:59 54 103/49 11/25/16 08:00 96.8 54 18 103/49 97 Nasal Cannula 2.0 11/25/16 08:00 55 11/25/16 04:12 98.5 58 20 107/55 98 Nasal Cannula 3.0 11/25/16 04:00 55 11/25/16 00:55 98.2 64 20 112/58 97 Nasal Cannula 3.0 11/25/16 00:00 56 11/24/16 20:00 97.7 81 18 107/60 Nasal Cannula 2.0 98 11/24/16 20:00 59 11/24/16 19:34 58 108/59 11/24/16 16:00 97.5 54 18 108/59 Nasal Cannula 2.0 95 11/24/16 16:00 58 11/24/16 12:00 52 11/24/16 11:38 97.0 53 20 117/71 100 Nasal Cannula 3.0 Intake and Output 11/24/16 11/25/16 19:00 07:00 Intake Total 640 ml Output Total 600 ml 900 ml Balance 40 ml -900 ml Intake Oral 240 ml IV Total 400 ml Output Urine Total 600 ml 900 ml # Bowel Movements 3 Laboratory Tests 11/25/16 05:15: White Blood Count 4.7L, Red Blood Count 2.87L, Hemoglobin 9.1L, Hematocrit 28.6L , Mean Corpuscular Volume 99, Mean Corpuscular Hemoglobin 31.8H, Mean Corpuscular Hemoglobin Concent 31.9L, Red Cell Distribution Width 17.5H, Platelet Count 73L, Mean Platelet Volume 5.8L, Neutrophils (%) (Auto) , Lymphocytes (%) (Auto) , Monocytes (%) (Auto) , Eosinophils (%) (Auto) , Basophils (%) (Auto) , Differential Total Cells Counted 100, Neutrophils % ( Manual) 37L, Lymphocytes % (Manual) 43, Monocytes % (Manual) 15H, Eosinophils % (Manual) 5H, Basophils % (Manual) 0, Band Neutrophils 0, Platelet Estimate DecreasedL, Platelet Morphology Normal, Hypochromasia 1+, Anisocytosis 1+, [place] Cells Occasional, Sodium Level 134L, Potassium Level 3.9, Chloride Level 100, Carbon Dioxide Level 22, Anion Gap 12, Blood Urea Nitrogen 12, Creatinine 1.1, Estimat Glomerular Filtration Rate > 60, Glucose Level 116H, Calcium Level 8.1L , Total Bilirubin 3.8H, Direct Bilirubin 1.7H, Aspartate Amino Transf (AST/SGOT ) 45H, Alanine Aminotransferase (ALT/SGPT) 23, Alkaline Phosphatase 47, Total Protein 6.4L, Albumin 1.7L, Globulin 4.7, Albumin/Globulin Ratio 0.3L Height (Feet): 6 Height (Inches): 3.00 Weight (Pounds): 236 General Appearance: alert EENT: normal ENT inspection Neck: supple Cardiovascular: normal rate Respiratory/Chest: lungs clear Abdomen: normal bowel sounds, non tender, soft Extremities: non-tender ELIO [place] Nov 25, 2016 10:38
--- NOTE | 2016-11-25 10:57 | Urology Progress Note ---
Assessment/Plan Assessment/Plan 1. Microhematuria. 2. Urinary tract infection. 3. Benign prostatic hypertrophy. 4. History of urinary frequency. 5. Rule out neurogenic bladder. 6. Proteinuria. 7. Left inguinal hernia. 8. Possible hydrocele. abx as ordered flomax monitor clinically cysto later Subjective Allergies: Coded Allergies: No Known Allergies (Unverified , 08/21/16) Subjective all noted, no new complaints Objective Last 24 Hour Vital Signs Date Time Temp Pulse Resp B/P Pulse Ox O2 Delivery O2 Flow Rate FiO2 11/25/16 08:59 54 103/49 11/25/16 08:00 96.8 54 18 103/49 97 Nasal Cannula 2.0 11/25/16 08:00 55 11/25/16 04:12 98.5 58 20 107/55 98 Nasal Cannula 3.0 11/25/16 04:00 55 11/25/16 00:55 98.2 64 20 112/58 97 Nasal Cannula 3.0 11/25/16 00:00 56 11/24/16 20:00 97.7 81 18 107/60 Nasal Cannula 2.0 98 11/24/16 20:00 59 11/24/16 19:34 58 108/59 11/24/16 16:00 97.5 54 18 108/59 Nasal Cannula 2.0 95 11/24/16 16:00 58 11/24/16 12:00 52 11/24/16 11:38 97.0 53 20 117/71 100 Nasal Cannula 3.0 Intake and Output 11/24/16 11/25/16 19:00 07:00 Intake Total 640 ml Output Total 600 ml 900 ml Balance 40 ml -900 ml Intake Oral 240 ml IV Total 400 ml Output Urine Total 600 ml 900 ml # Bowel Movements 3 Microbiology Date/Time Source Procedure Growth Status 11/22/16 08:10 Blood Blood Culture - Preliminary NO GROWTH AFTER 48 HOURS Resulted 11/22/16 23:00 Nasopharynx Influenza Types A,B Antigen (REBECA) - Final Complete 11/22/16 13:00 Urine,Ureter/Kidney Urine Culture - Final Enterococcus Faecalis Complete 11/22/16 01:45 Rectum VRE Culture - Final NO VANCOMYCIN RESISTANT ENTEROCOCCUS ... Complete Current Medications Medications (Trade) Dose Ordered Sig/Jayne Route PRN Reason Start Time Stop Time Status Last Admin Dose Admin Acetaminophen (Tylenol) 500 mg Q8H PRN ORAL For Pain 11/22/16 02:45 12/22/16 02:44 11/23/16 21:57 Al Hydroxide/Mg Hydroxide 30 ml 30 ml Q8H PRN ORAL Abdominal cramps 11/22/16 02:45 12/22/16 02:44 Dextrose (Dextrose 50%) STAT PRN IV Hypoglycemia 11/22/16 02:30 12/22/16 02:29 Furosemide (Lasix) 20 mg DAILY ORAL 11/22/16 09:00 12/22/16 08:59 11/25/16 09:00 Guaifenesin (Robitussin) 100 mg Q4H PRN ORAL For Cough 11/22/16 02:45 12/22/16 02:44 11/25/16 05:16 Lactulose (Cephulac) 14.666 gm BID ORAL 11/22/16 09:00 12/22/16 08:59 11/23/16 18:42 Levofloxacin (Levaquin) 100 ml @ 100 mls/hr Q24H IVPB 11/22/16 09:00 11/29/16 08:59 11/25/16 08:58 Pantoprazole (Protonix) 40 mg EVERY 12 HOURS IVP 11/22/16 21:00 12/22/16 20:59 11/25/16 08:58 Propranolol HCl (Inderal) 10 mg BID ORAL 11/22/16 09:00 12/22/16 08:59 11/24/16 19:34 Rifaximin (Xifaxan) 550 mg EVERY 12 HOURS ORAL 11/22/16 21:00 11/29/16 20:59 11/25/16 09:02 Spironolactone (Aldactone) 50 mg BID ORAL 11/22/16 09:00 12/22/16 08:59 11/25/16 09:08 Tamsulosin HCl (Flomax) 0.4 mg BEDTIME ORAL 11/24/16 21:00 12/24/16 20:59 11/24/16 21:15 Laboratory Tests 11/25/16 05:15: White Blood Count 4.7L, Red Blood Count 2.87L, Hemoglobin 9.1L, Hematocrit 28.6L , Mean Corpuscular Volume 99, Mean Corpuscular Hemoglobin 31.8H, Mean Corpuscular Hemoglobin Concent 31.9L, Red Cell Distribution Width 17.5H, Platelet Count 73L, Mean Platelet Volume 5.8L, Neutrophils (%) (Auto) , Lymphocytes (%) (Auto) , Monocytes (%) (Auto) , Eosinophils (%) (Auto) , Basophils (%) (Auto) , Differential Total Cells Counted 100, Neutrophils % ( Manual) 37L, Lymphocytes % (Manual) 43, Monocytes % (Manual) 15H, Eosinophils % (Manual) 5H, Basophils % (Manual) 0, Band Neutrophils 0, Platelet Estimate DecreasedL, Platelet Morphology Normal, Hypochromasia 1+, Anisocytosis 1+, Phu Cells Occasional, Sodium Level 134L, Potassium Level 3.9, Chloride Level 100, Carbon Dioxide Level 22, Anion Gap 12, Blood Urea Nitrogen 12, Creatinine 1.1, Estimat Glomerular Filtration Rate > 60, Glucose Level 116H, Calcium Level 8.1L , Total Bilirubin 3.8H, Direct Bilirubin 1.7H, Aspartate Amino Transf (AST/SGOT ) 45H, Alanine Aminotransferase (ALT/SGPT) 23, Alkaline Phosphatase 47, Total Protein 6.4L, Albumin 1.7L, Globulin 4.7, Albumin/Globulin Ratio 0.3L Height (Feet): 6 Height (Inches): 3.00 Weight (Pounds): 236 Objective exam stable JOHANN LANGSTON Nov 25, 2016 10:57
[2016-11-25 12:00] VITALS: BP 105/62
--- NOTE | 2016-11-25 12:35 | General Progress Note ---
Assessment/Plan Status: stable Assessment/Plan 1. Acute Anemia, GI? Uro?. 2. Cytopenia, bilinear. 5. Alcoholic cirrhosis. 6. Protein-calorie malnourishment. 7. Hepatitic encephalopathy. 8. Pulmonary infiltrate - working in progress. 9. Hep-C 10. Hematuria 9. Gastrointestinal and deep vein thrombosis prophylaxis. PLAN OF CARE: S/p EGD and blood transfusion The patient remained in medically guarded prognosis. urology consult Negative result for occult blood, Hematuria?? cause of acute Anemia? work in progress Deposition to SN once bed avaible Subjective Constitutional: Reports: malaise HEENT: Reports: no symptoms Cardiovascular: Reports: no symptoms Respiratory: Reports: no symptoms Allergies: Coded Allergies: No Known Allergies (Unverified , 08/21/16) Objective Last 24 Hour Vital Signs Date Time Temp Pulse Resp B/P Pulse Ox O2 Delivery O2 Flow Rate FiO2 11/25/16 08:59 54 103/49 11/25/16 08:00 96.8 54 18 103/49 97 Nasal Cannula 2.0 11/25/16 08:00 55 11/25/16 04:12 98.5 58 20 107/55 98 Nasal Cannula 3.0 11/25/16 04:00 55 11/25/16 00:55 98.2 64 20 112/58 97 Nasal Cannula 3.0 11/25/16 00:00 56 11/24/16 20:00 97.7 81 18 107/60 Nasal Cannula 2.0 98 11/24/16 20:00 59 11/24/16 19:34 58 108/59 11/24/16 16:00 97.5 54 18 108/59 Nasal Cannula 2.0 95 11/24/16 16:00 58 Intake and Output 11/24/16 11/25/16 19:00 07:00 Intake Total 640 ml Output Total 600 ml 900 ml Balance 40 ml -900 ml Intake Oral 240 ml IV Total 400 ml Output Urine Total 600 ml 900 ml # Bowel Movements 3 Laboratory Tests 11/25/16 05:15: White Blood Count 4.7L, Red Blood Count 2.87L, Hemoglobin 9.1L, Hematocrit 28.6L , Mean Corpuscular Volume 99, Mean Corpuscular Hemoglobin 31.8H, Mean Corpuscular Hemoglobin Concent 31.9L, Red Cell Distribution Width 17.5H, Platelet Count 73L, Mean Platelet Volume 5.8L, Neutrophils (%) (Auto) , Lymphocytes (%) (Auto) , Monocytes (%) (Auto) , Eosinophils (%) (Auto) , Basophils (%) (Auto) , Differential Total Cells Counted 100, Neutrophils % ( Manual) 37L, Lymphocytes % (Manual) 43, Monocytes % (Manual) 15H, Eosinophils % (Manual) 5H, Basophils % (Manual) 0, Band Neutrophils 0, Platelet Estimate DecreasedL, Platelet Morphology Normal, Hypochromasia 1+, Anisocytosis 1+, [place] Cells Occasional, Sodium Level 134L, Potassium Level 3.9, Chloride Level 100, Carbon Dioxide Level 22, Anion Gap 12, Blood Urea Nitrogen 12, Creatinine 1.1, Estimat Glomerular Filtration Rate > 60, Glucose Level 116H, Calcium Level 8.1L , Total Bilirubin 3.8H, Direct Bilirubin 1.7H, Aspartate Amino Transf (AST/SGOT ) 45H, Alanine Aminotransferase (ALT/SGPT) 23, Alkaline Phosphatase 47, Total Protein 6.4L, Albumin 1.7L, Globulin 4.7, Albumin/Globulin Ratio 0.3L Height (Feet): 6 Height (Inches): 3.00 Weight (Pounds): 236 General Appearance: WD/WN EENT: PERRL/EOMI Neck: supple Cardiovascular: normal rate Respiratory/Chest: lungs clear Abdomen: soft, other - protuberant Edema: 3+ Leg (R), 3+ Pedal (L), 3+ Pedal (R) Neurologic: oriented x 3 Noni Bush MD Nov 25, 2016 12:35
[2016-11-25 16:00] VITALS: BP 105/51
[2016-11-25 20:00] VITALS: BP 100/50
[2016-11-25] MEDS: Tamsulosin 0.4mg cap ORAL SCH (21:17)
--- NOTE | 2016-11-25 21:28 | General Progress Note ---
Assessment/Plan Assessment/Plan Assessment/Plan ASSESSMENT: 1. Thrombocytopenia currently platelet count > 60,000 range likely consistent with end-stage cirrhosis as well as hepatomegaly, hepatosplenomegaly of abdomen as well as CAT of the abdomen and pelvis. 2. Anemia secondary to chronic disease. Ferritin is 2000, Have transfused before 3. Decrease in hemoglobin and hematocrit, rule out gastrointestinal bleed. 4. Microcytic anemia, rule out gastrointestinal bleeding. 5. Leukopenia likely secondary to cirrhosis and hepatosplenomegaly with splenic sequestration.Patient with hepatitis 6. Transaminitis. 7. Alcoholic cirrhosis. 8. Abdominal pain. 9. Coagulopathy secondary to likely liver disease. RECS: 1. Monitor counts. 2. Imaging from before reviewed 3. Paracentesis on prn basis 4. Peripheral smear has been reviewed, no schitocytes 5. Maintain hemoglobin > 7 6. Maintain platelet count above 20k 7. No heparin, aspirin, Plavix to be administered. 8. GI and DVT prophylaxis. 9. Anemia w/u shows anemia chronic disease 10. Discussed with staff. Thank you, Edd Liang MD Subjective Constitutional: Reports: no symptoms HEENT: Reports: no symptoms Cardiovascular: Reports: no symptoms Respiratory: Reports: no symptoms Gastrointestinal/Abdominal: Reports: no symptoms Genitourinary: Reports: no symptoms Neurologic/Psychiatric: Reports: no symptoms Endocrine: Reports: no symptoms Hematologic/Lymphatic: Reports: no symptoms Allergies: Coded Allergies: No Known Allergies (Unverified , 08/21/16) Objective Last 24 Hour Vital Signs Date Time Temp Pulse Resp B/P Pulse Ox O2 Delivery O2 Flow Rate FiO2 11/25/16 20:00 97.4 60 21 100/50 100 Nasal Cannula 2.0 11/25/16 19:13 54 105/51 11/25/16 17:00 54 11/25/16 16:00 97.7 84 18 105/51 98 Room Air 11/25/16 12:00 52 11/25/16 12:00 97.0 59 17 105/62 97 Room Air 11/25/16 08:59 54 103/49 11/25/16 08:00 96.8 54 18 103/49 97 Nasal Cannula 2.0 11/25/16 08:00 55 11/25/16 04:12 98.5 58 20 107/55 98 Nasal Cannula 3.0 3/17/17 04:00 55 11/25/16 00:55 98.2 64 20 112/58 97 Nasal Cannula 3.0 11/25/16 00:00 56 Intake and Output 11/24/16 11/25/16 19:00 07:00 Intake Total 640 ml Output Total 600 ml 900 ml Balance 40 ml -900 ml Intake Oral 240 ml IV Total 400 ml Output Urine Total 600 ml 900 ml # Bowel Movements 3 Laboratory Tests 11/25/16 05:15: White Blood Count 4.7L, Red Blood Count 2.87L, Hemoglobin 9.1L, Hematocrit 28.6L , Mean Corpuscular Volume 99, Mean Corpuscular Hemoglobin 31.8H, Mean Corpuscular Hemoglobin Concent 31.9L, Red Cell Distribution Width 17.5H, Platelet Count 73L, Mean Platelet Volume 5.8L, Neutrophils (%) (Auto) , Lymphocytes (%) (Auto) , Monocytes (%) (Auto) , Eosinophils (%) (Auto) , Basophils (%) (Auto) , Differential Total Cells Counted 100, Neutrophils % ( Manual) 37L, Lymphocytes % (Manual) 43, Monocytes % (Manual) 15H, Eosinophils % (Manual) 5H, Basophils % (Manual) 0, Band Neutrophils 0, Platelet Estimate DecreasedL, Platelet Morphology Normal, Hypochromasia 1+, Anisocytosis 1+, Phu Cells Occasional, Sodium Level 134L, Potassium Level 3.9, Chloride Level 100, Carbon Dioxide Level 22, Anion Gap 12, Blood Urea Nitrogen 12, Creatinine 1.1, Estimat Glomerular Filtration Rate > 60, Glucose Level 116H, Calcium Level 8.1L , Total Bilirubin 3.8H, Direct Bilirubin 1.7H, Aspartate Amino Transf (AST/SGOT ) 45H, Alanine Aminotransferase (ALT/SGPT) 23, Alkaline Phosphatase 47, Total Protein 6.4L, Albumin 1.7L, Globulin 4.7, Albumin/Globulin Ratio 0.3L Height (Feet): 6 Height (Inches): 3.00 Weight (Pounds): 236 General Appearance: no apparent distress EENT: normal ENT inspection Neck: supple Cardiovascular: regular rhythm Respiratory/Chest: lungs clear Abdomen: no mass Pelvis: normal external exam Extremities: non-tender Edema: no edema noted Arm (L), no edema noted Arm (R), no edema noted Leg (L), no edema noted Leg (R), no edema noted Pedal (L), no edema noted Pedal (R), no edema noted Generalized TAMEKA LIANG Nov 25, 2016 21:28
[2016-11-26 00:43] VITALS: BP 94/57
[2016-11-26] MEDS: guaiFENesin 100mg/5ml Liq ud ORAL PRN ×2 (02:32→06:49)
[2016-11-26 04:17] VITALS: BP 95/52
[2016-11-26 08:00] VITALS: BP 117/65
[2016-11-26 08:03] LABS: MEAN CORPUSCULAR HEMOGLOBIN 32.2 PG (27.0-31.0); MEAN CORPUSCULAR HGB CONC 32.1 G/DL (32.0-36.0); MEAN CORPUSCULAR VOLUME 100 FL (80-99); MEAN PLATELET VOLUME 8.5 FL (6.5-10.1); PLATELET COUNT 86 K/UL (150-450); RED BLOOD COUNT 2.79 M/UL (4.70-6.10); RED CELL DISTRIBUTION WIDTH 17.2 % (11.6-14.8); WHITE BLOOD COUNT 4.9 K/UL (4.8-10.8)
[2016-11-26 08:59] LABS: ALANINE AMINOTRANSFERASE 28 U/L (3-41); ALBUMIN/GLOBULIN RATIO 0.3 (1.0-2.7); ANION GAP 13 (5-15); ASPARTATE AMINO TRANSFERASE 64 U/L (5-40); CALCIUM 7.7 mg/dL (8.6-10.2); CARBON DIOXIDE 22 mEQ/L (20-30); CHLORIDE 99 mEQ/L (98-107); CREATININE 1.1 mg/dL (0.7-1.2); GLOMERULAR FILTRATION RATE > 60 mL/min (>60); HEMOLYSIS 6; SODIUM 134 mEQ/L (135-145); TOTAL PROTEIN 6.3 g/dL (6.6-8.7)
[2016-11-26] MEDS: Rifaximin 550mg tab ORAL SCH ×2 (08:59→21:06)
[2016-11-26] MEDS: Spironolactone 50mg tab ORAL SCH ×2 (08:59→18:00)
[2016-11-26] MEDS: Levofloxacin 500mg tab ORAL SCH (08:59)
[2016-11-26] MEDS: Propranolol 10mg tab ORAL SCH ×2 (09:00→18:00)
[2016-11-26] MEDS: Lactulose 20gm/30ml UDC ORAL SCH ×2 (09:00→17:53)
--- NOTE | 2016-11-26 09:32 | Infectious Diseases Prog Note ---
Assessment/Plan Assessment/Plan ASSESSMENT: 66-year-old male with: Bronchitis vs Pna - SCx NRF Cxray : Bilateral basilar opacities, likely from parenchymal consolidation or edema cough ( productive ) Negative influenza doubt SBP pt has no Abd pain US : Splenomegaly and ascites, indicating portal hypertension, Negative HIV Diarrhea x 3 , Ro C Diff ( on lactulose ) UCx : VSE.faecalis ( ? signif. low count ) Sepsis SP Leukopenia, afebrile Chronic HCV cirrhosis with cytopenias, elevated LFTs, hypoalbuminemia SP EGD with banding 11/23 - path(-) malignancy Hematuria NKDA Full Code PLAN: continue Levaquin d# 5 / f/u final cultures Monitor CBC, temperatures Monitor CMP Monitor chest x-ray transfuse prn Subjective Allergies: Coded Allergies: No Known Allergies (Unverified , 08/21/16) Subjective remains afebrile. appears comfortable Objective Vital Signs Last 24 Hour Vital Signs Date Time Temp Pulse Resp B/P Pulse Ox O2 Delivery O2 Flow Rate FiO2 11/26/16 04:17 98.4 54 21 95/52 99 Nasal Cannula 3.0 11/26/16 04:00 55 11/26/16 00:43 98.7 59 20 94/57 99 Nasal Cannula 3.0 11/26/16 00:00 59 11/25/16 20:00 97.4 60 21 100/50 100 Nasal Cannula 2.0 11/25/16 20:00 58 11/25/16 19:13 54 105/51 11/25/16 17:00 54 11/25/16 16:00 97.7 84 18 105/51 98 Room Air 11/25/16 12:00 52 11/25/16 12:00 97.0 59 17 105/62 97 Room Air Height (Feet): 6 Height (Inches): 3.00 Weight (Pounds): 231 General Appearance: no acute distress Respiratory/Chest: no respiratory distress Cardiovascular: normal rate, regular rhythm Abdomen: normal bowel sounds, soft, non tender, non distended Microbiology Date/Time Source Procedure Growth Status 11/25/16 00:30 Sputum Gram Stain - Final Resulted 11/25/16 00:30 Sputum Sputum Culture - Preliminary NORMAL UPPER RESPIRATORY RYAN AT 24 ... Resulted Laboratory Tests Test 11/26/16 05:15 White Blood Count 4.9 K/UL (4.8-10.8) Red Blood Count 2.79 M/UL (4.70-6.10) L Hemoglobin 9.0 G/DL (14.2-18.0) L Hematocrit 27.9 % (42.0-52.0) L Mean Corpuscular Volume 100 FL (80-99) H Mean Corpuscular Hemoglobin 32.2 PG (27.0-31.0) H Mean Corpuscular Hemoglobin Concent 32.1 G/DL (32.0-36.0) Red Cell Distribution Width 17.2 % (11.6-14.8) H Platelet Count 86 K/UL (150-450) L Mean Platelet Volume 8.5 FL (6.5-10.1) Neutrophils (%) (Auto) % (45.0-75.0) Lymphocytes (%) (Auto) % (20.0-45.0) Monocytes (%) (Auto) % (1.0-10.0) Eosinophils (%) (Auto) % (0.0-3.0) Basophils (%) (Auto) % (0.0-2.0) Neutrophils % (Manual) Pending Lymphocytes % (Manual) Pending Platelet Estimate Pending Platelet Morphology Pending Sodium Level 134 mEQ/L (135-145) L Potassium Level 4.0 mEQ/L (3.4-4.9) Chloride Level 99 mEQ/L (98-107) Carbon Dioxide Level 22 mEQ/L (20-30) Anion Gap 13 (5-15) Blood Urea Nitrogen 11 mg/dL (7-23) Creatinine 1.1 mg/dL (0.7-1.2) Estimat Glomerular Filtration Rate > 60 mL/min (>60) Glucose Level 113 mg/dL (74-106) H Calcium Level 7.7 mg/dL (8.6-10.2) L Total Bilirubin 3.2 mg/dL (0.0-1.2) H Direct Bilirubin Pending Aspartate Amino Transf (AST/SGOT) 64 U/L (5-40) H Alanine Aminotransferase (ALT/SGPT) 28 U/L (3-41) Alkaline Phosphatase 51 U/L (40-129) Total Protein 6.3 g/dL (6.6-8.7) L Albumin 1.6 g/dL (3.5-5.2) L Globulin 4.7 g/dL Albumin/Globulin Ratio 0.3 (1.0-2.7) L Current Medications Medications (Trade) Dose Ordered Sig/Jayne Route PRN Reason Start Time Stop Time Status Last Admin Dose Admin Acetaminophen (Tylenol) 500 mg Q8H PRN ORAL For Pain 11/22/16 02:45 12/22/16 02:44 11/23/16 21:57 Al Hydroxide/Mg Hydroxide (Mylanta) 30 ml Q8H PRN ORAL Abdominal cramps 11/22/16 02:45 12/22/16 02:44 Dextrose (Dextrose 50%) STAT PRN IV Hypoglycemia 11/22/16 02:30 12/22/16 02:29 Furosemide (Lasix) 20 mg DAILY ORAL 11/22/16 09:00 12/22/16 08:59 11/26/16 08:59 Guaifenesin (Robitussin) 100 mg Q4H PRN ORAL For Cough 11/22/16 02:45 12/22/16 02:44 11/26/16 06:49 Lactulose (Cephulac) 14.666 gm BID ORAL 11/22/16 09:00 12/22/16 08:59 11/23/16 18:42 Levofloxacin (Levaquin) 500 mg DAILY ORAL 11/26/16 09:00 11/29/16 08:59 11/26/16 08:59 Pantoprazole (Protonix) 40 mg ACBREAKFAST ORAL 11/26/16 06:30 12/26/16 06:29 11/26/16 06:09 Propranolol HCl (Inderal) 10 mg BID ORAL 11/22/16 09:00 12/22/16 08:59 11/25/16 19:13 Rifaximin (Xifaxan) 550 mg EVERY 12 HOURS ORAL 11/22/16 21:00 11/29/16 20:59 11/26/16 08:59 Spironolactone (Aldactone) 50 mg BID ORAL 11/22/16 09:00 12/22/16 08:59 11/26/16 08:59 Tamsulosin HCl (Flomax) 0.4 mg BEDTIME ORAL 11/24/16 21:00 12/24/16 20:59 11/25/16 21:17 KAREN BERNAL 18, 2017 09:32
--- NOTE | 2016-11-26 09:56 | General Progress Note ---
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 ICD Codes: I85.00 - Esophageal varices without bleeding SNOMED: 30472572, 910587435 (2) Pancytopenia ICD Codes: D61.818 - Other pancytopenia SNOMED: 139650587 (3) Alcoholic cirrhosis ICD Codes: K70.30 - Alcoholic cirrhosis of liver without ascites SNOMED: 543151801, 898021427 Assessment/Plan continue current meds ok to dc repeat EGD as out patient in 4 weeks Subjective ROS Limited/Unobtainable: Yes Allergies: Coded Allergies: No Known Allergies (Unverified , 08/21/16) Subjective no event Objective Last 24 Hour Vital Signs Date Time Temp Pulse Resp B/P Pulse Ox O2 Delivery O2 Flow Rate FiO2 11/26/16 04:17 98.4 54 21 95/52 99 Nasal Cannula 3.0 11/26/16 04:00 55 11/26/16 00:43 98.7 59 20 94/57 99 Nasal Cannula 3.0 11/26/16 00:00 59 11/25/16 20:00 97.4 60 21 100/50 100 Nasal Cannula 2.0 11/25/16 20:00 58 11/25/16 19:13 54 105/51 11/25/16 17:00 54 11/25/16 16:00 97.7 84 18 105/51 98 Room Air 11/25/16 12:00 52 11/25/16 12:00 97.0 59 17 105/62 97 Room Air Intake and Output 11/25/16 11/26/16 19:00 07:00 Intake Total 650 ml 300 ml Output Total 680 ml 1200 ml Balance -30 ml -900 ml Intake Oral 650 ml 300 ml Output Urine Total 680 ml 1200 ml # Voids 3 # Bowel Movements 2 Laboratory Tests 11/26/16 05:15: White Blood Count 4.9, Red Blood Count 2.79L, Hemoglobin 9.0L, Hematocrit 27.9L , Mean Corpuscular Volume 100H, Mean Corpuscular Hemoglobin 32.2H, Mean Corpuscular Hemoglobin Concent 32.1, Red Cell Distribution Width 17.2H, Platelet Count 86L, Mean Platelet Volume 8.5, Neutrophils (%) (Auto) , Lymphocytes (%) (Auto) , Monocytes (%) (Auto) , Eosinophils (%) (Auto) , Basophils (%) (Auto) , Neutrophils % (Manual) [Pending], Lymphocytes % (Manual) [Pending], Platelet Estimate [Pending], Platelet Morphology [Pending], Sodium Level 134L, Potassium Level 4.0, Chloride Level 99, Carbon Dioxide Level 22, Anion Gap 13, Blood Urea Nitrogen 11, Creatinine 1.1, Estimat Glomerular Filtration Rate > 60, Glucose Level 113H, Calcium Level 7.7L, Total Bilirubin 3.2H, Direct Bilirubin [Pending], Aspartate Amino Transf (AST/SGOT) 64H, Alanine Aminotransferase (ALT/SGPT) 28, Alkaline Phosphatase 51, Total Protein 6.3L, Albumin 1.6L, Globulin 4.7, Albumin/Globulin Ratio 0.3L Height (Feet): 6 Height (Inches): 3.00 Weight (Pounds): 231 General Appearance: alert EENT: PERRL/EOMI Neck: supple Cardiovascular: normal rate Respiratory/Chest: decreased breath sounds Abdomen: normal bowel sounds, non tender, soft Extremities: non-tender ELIO OH Nov 26, 2016 09:56
[2016-11-26 10:21] LABS: BILIRUBIN,DIRECT 1.5 mg/dL (0.1-0.3)
--- NOTE | 2016-11-26 10:56 | Urology Progress Note ---
Assessment/Plan Assessment/Plan 1. Microhematuria. 2. Urinary tract infection. 3. Benign prostatic hypertrophy. 4. History of urinary frequency. 5. Rule out neurogenic bladder. 6. Proteinuria. 7. Left inguinal hernia. 8. Possible hydrocele. abx as ordered flomax monitor clinically cysto later Subjective Allergies: Coded Allergies: No Known Allergies (Unverified , 08/21/16) Subjective all noted, no new complaints Objective Last 24 Hour Vital Signs Date Time Temp Pulse Resp B/P Pulse Ox O2 Delivery O2 Flow Rate FiO2 11/26/16 09:00 53 100/56 11/26/16 08:00 96.9 92 17 117/65 97 Nasal Cannula 2.0 11/26/16 08:00 53 11/26/16 04:17 98.4 54 21 95/52 99 Nasal Cannula 3.0 11/26/16 04:00 55 11/26/16 00:43 98.7 59 20 94/57 99 Nasal Cannula 3.0 11/26/16 00:00 59 11/25/16 20:00 97.4 60 21 100/50 100 Nasal Cannula 2.0 11/25/16 20:00 58 11/25/16 19:13 54 105/51 11/25/16 17:00 54 11/25/16 16:00 97.7 84 18 105/51 98 Room Air 11/25/16 12:00 52 11/25/16 12:00 97.0 59 17 105/62 97 Room Air Intake and Output 11/25/16 11/26/16 19:00 07:00 Intake Total 650 ml 300 ml Output Total 680 ml 1200 ml Balance -30 ml -900 ml Intake Oral 650 ml 300 ml Output Urine Total 680 ml 1200 ml # Voids 3 # Bowel Movements 2 Microbiology Date/Time Source Procedure Growth Status 11/22/16 08:10 Blood Blood Culture - Preliminary NO GROWTH AFTER 48 HOURS Resulted 11/25/16 00:30 Sputum Gram Stain - Final Resulted 11/25/16 00:30 Sputum Sputum Culture - Preliminary NORMAL UPPER RESPIRATORY RYAN AT 24 ... Resulted 11/22/16 13:00 Urine,Ureter/Kidney Urine Culture - Final Enterococcus Faecalis Complete 11/22/16 01:45 Rectum VRE Culture - Final NO VANCOMYCIN RESISTANT ENTEROCOCCUS ... Complete Current Medications Medications (Trade) Dose Ordered Sig/Jayne Route PRN Reason Start Time Stop Time Status Last Admin Dose Admin Acetaminophen (Tylenol) 500 mg Q8H PRN ORAL For Pain 11/22/16 02:45 12/22/16 02:44 11/23/16 21:57 Al Hydroxide/Mg Hydroxide (Mylanta) 30 ml Q8H PRN ORAL Abdominal cramps 11/22/16 02:45 12/22/16 02:44 Dextrose (Dextrose 50%) STAT PRN IV Hypoglycemia 11/22/16 02:30 12/22/16 02:29 Furosemide (Lasix) 20 mg DAILY ORAL 11/22/16 09:00 12/22/16 08:59 11/26/16 08:59 Guaifenesin (Robitussin) 100 mg Q4H PRN ORAL For Cough 11/22/16 02:45 12/22/16 02:44 11/26/16 06:49 Lactulose (Cephulac) 14.666 gm BID ORAL 11/22/16 09:00 12/22/16 08:59 11/23/16 18:42 Levofloxacin (Levaquin) 500 mg DAILY ORAL 11/26/16 09:00 11/29/16 08:59 11/26/16 08:59 Pantoprazole (Protonix) 40 mg ACBREAKFAST ORAL 11/26/16 06:30 12/26/16 06:29 11/26/16 06:09 Propranolol HCl (Inderal) 10 mg BID ORAL 11/22/16 09:00 12/22/16 08:59 11/25/16 19:13 Rifaximin (Xifaxan) 550 mg EVERY 12 HOURS ORAL 11/22/16 21:00 11/29/16 20:59 11/26/16 08:59 Spironolactone (Aldactone) 50 mg BID ORAL 11/22/16 09:00 12/22/16 08:59 11/26/16 08:59 Tamsulosin HCl (Flomax) 0.4 mg BEDTIME ORAL 11/24/16 21:00 12/24/16 20:59 11/25/16 21:17 Laboratory Tests 11/26/16 05:15: White Blood Count 4.9, Red Blood Count 2.79L, Hemoglobin 9.0L, Hematocrit 27.9L , Mean Corpuscular Volume 100H, Mean Corpuscular Hemoglobin 32.2H, Mean Corpuscular Hemoglobin Concent 32.1, Red Cell Distribution Width 17.2H, Platelet Count 86L, Mean Platelet Volume 8.5, Neutrophils (%) (Auto) , Lymphocytes (%) (Auto) , Monocytes (%) (Auto) , Eosinophils (%) (Auto) , Basophils (%) (Auto) , Neutrophils % (Manual) [Pending], Lymphocytes % (Manual) [Pending], Platelet Estimate [Pending], Platelet Morphology [Pending], Sodium Level 134L, Potassium Level 4.0, Chloride Level 99, Carbon Dioxide Level 22, Anion Gap 13, Blood Urea Nitrogen 11, Creatinine 1.1, Estimat Glomerular Filtration Rate > 60, Glucose Level 113H, Calcium Level 7.7L, Total Bilirubin 3.2H, Direct Bilirubin 1.5H, Aspartate Amino Transf (AST/SGOT) 64H, Alanine Aminotransferase (ALT/SGPT) 28, Alkaline Phosphatase 51, Total Protein 6.3L, Albumin 1.6L, Globulin 4.7, Albumin/Globulin Ratio 0.3L Height (Feet): 6 Height (Inches): 3.00 Weight (Pounds): 231 Objective exam stable JOHANN LANGSTON Nov 26, 2016 10:56
[2016-11-26 12:00] VITALS: BP 110/68
--- NOTE | 2016-11-26 12:13 | General Progress Note ---
Assessment/Plan Status: stable Assessment/Plan 1. Acute Anemia, GI? Uro?. 2. Cytopenia, bilinear. 5. Alcoholic cirrhosis. 6. Protein-calorie malnourishment. 7. Hepatitic encephalopathy. 8. Pulmonary infiltrate - working in progress. 9. Hep-C 10. Hematuria 11. Imbalance, High risk for fall 9. Gastrointestinal and deep vein thrombosis prophylaxis. PLAN OF CARE: S/p EGD and blood transfusion The patient remained in medically guarded prognosis. urology consult Negative result for occult blood, Hematuria?? cause of acute Anemia? work in progress Deposition to SN once bed available Subjective ROS Limited/Unobtainable: No Constitutional: Reports: no symptoms HEENT: Reports: no symptoms Cardiovascular: Reports: no symptoms Allergies: Coded Allergies: No Known Allergies (Unverified , 08/21/16) Objective Last 24 Hour Vital Signs Date Time Temp Pulse Resp B/P Pulse Ox O2 Delivery O2 Flow Rate FiO2 11/26/16 09:00 53 100/56 11/26/16 08:00 96.9 92 17 117/65 97 Nasal Cannula 2.0 11/26/16 08:00 53 11/26/16 04:17 98.4 54 21 95/52 99 Nasal Cannula 3.0 11/26/16 04:00 55 11/26/16 00:43 98.7 59 20 94/57 99 Nasal Cannula 3.0 11/26/16 00:00 59 11/25/16 20:00 97.4 60 21 100/50 100 Nasal Cannula 2.0 11/25/16 20:00 58 11/25/16 19:13 54 105/51 11/25/16 17:00 54 11/25/16 16:00 97.7 84 18 105/51 98 Room Air Intake and Output 11/25/16 11/26/16 19:00 07:00 Intake Total 650 ml 300 ml Output Total 680 ml 1200 ml Balance -30 ml -900 ml Intake Oral 650 ml 300 ml Output Urine Total 680 ml 1200 ml # Voids 3 # Bowel Movements 2 Laboratory Tests 11/26/16 05:15: White Blood Count 4.9, Red Blood Count 2.79L, Hemoglobin 9.0L, Hematocrit 27.9L , Mean Corpuscular Volume 100H, Mean Corpuscular Hemoglobin 32.2H, Mean Corpuscular Hemoglobin Concent 32.1, Red Cell Distribution Width 17.2H, Platelet Count 86L, Mean Platelet Volume 8.5, Neutrophils (%) (Auto) , Lymphocytes (%) (Auto) , Monocytes (%) (Auto) , Eosinophils (%) (Auto) , Basophils (%) (Auto) , Neutrophils % (Manual) [Pending], Lymphocytes % (Manual) [Pending], Platelet Estimate [Pending], Platelet Morphology [Pending], Sodium Level 134L, Potassium Level 4.0, Chloride Level 99, Carbon Dioxide Level 22, Anion Gap 13, Blood Urea Nitrogen 11, Creatinine 1.1, Estimat Glomerular Filtration Rate > 60, Glucose Level 113H, Calcium Level 7.7L, Total Bilirubin 3.2H, Direct Bilirubin 1.5H, Aspartate Amino Transf (AST/SGOT) 64H, Alanine Aminotransferase (ALT/SGPT) 28, Alkaline Phosphatase 51, Total Protein 6.3L, Albumin 1.6L, Globulin 4.7, Albumin/Globulin Ratio 0.3L Height (Feet): 6 Height (Inches): 3.00 Weight (Pounds): 231 General Appearance: no apparent distress EENT: PERRL/EOMI Neck: supple Cardiovascular: normal rate Respiratory/Chest: lungs clear Abdomen: distended - at base line Edema: 2+ Leg (R), 2+ Pedal (L), 2+ Pedal (R) Neurologic: oriented x 3 Noni Bush MD Nov 26, 2016 12:13
[2016-11-26 12:32] LABS: BAND NEUTROPHILS % (MANUAL) 0 % (0-8); BASOPHILS % (MANUAL) 0 % (0-2); EOSINOPHILS % (MANUAL) 5 % (0-3); LYMPHOCYTES % (MANUAL) 40 % (20-45); NEUTROPHILS % (MANUAL) 43 % (45-75); PLATELET ESTIMATE DECREASED; TOTAL CELLS COUNTED 100
[2016-11-26 12:33] LABS: ANISOCYTOSIS 2+; MACROCYTES 1+; MICROCYTES OCCASIONAL; PLATELET MORPHOLOGY NORMAL
[2016-11-26 16:00] VITALS: BP 91/51
[2016-11-26 20:00] VITALS: BP 108/60
[2016-11-26] MEDS: Tamsulosin 0.4mg cap ORAL SCH (21:00)
--- NOTE | 2016-11-26 22:28 | General Progress Note ---
Assessment/Plan Assessment/Plan Assessment/Plan ASSESSMENT: 1. Thrombocytopenia currently platelet count > 60,000 range likely consistent with end-stage cirrhosis as well as hepatomegaly, hepatosplenomegaly of abdomen as well as CAT of the abdomen and pelvis. 2. Anemia secondary to chronic disease. Ferritin is 2000, Have transfused before 3. Decrease in hemoglobin and hematocrit, rule out gastrointestinal bleed. 4. Microcytic anemia, rule out gastrointestinal bleeding. 5. Leukopenia likely secondary to cirrhosis and hepatosplenomegaly with splenic sequestration.Patient with hepatitis 6. Transaminitis. 7. Alcoholic cirrhosis. 8. Abdominal pain. 9. Coagulopathy secondary to likely liver disease. RECS: 1. Monitor counts. 2. Imaging from before reviewed 3. Paracentesis on prn basis 4. Peripheral smear has been reviewed, no schitocytes 5. Maintain hemoglobin > 7 6. Maintain platelet count above 20k 7. No heparin, aspirin, Plavix to be administered. 8. GI and DVT prophylaxis. 9. Anemia w/u shows anemia chronic disease 10. Discussed with staff. Thank you, Edd Liang MD Subjective Constitutional: Reports: no symptoms HEENT: Reports: no symptoms Cardiovascular: Reports: no symptoms Respiratory: Reports: no symptoms Gastrointestinal/Abdominal: Reports: no symptoms Genitourinary: Reports: no symptoms Neurologic/Psychiatric: Reports: no symptoms Endocrine: Reports: no symptoms Hematologic/Lymphatic: Reports: no symptoms Allergies: Coded Allergies: No Known Allergies (Unverified , 08/21/16) Objective Last 24 Hour Vital Signs Date Time Temp Pulse Resp B/P Pulse Ox O2 Delivery O2 Flow Rate FiO2 11/26/16 20:00 63 11/26/16 20:00 97.5 66 19 108/60 100 Nasal Cannula 2.0 11/26/16 18:00 61 91/51 11/26/16 16:00 97.5 61 20 91/51 99 Nasal Cannula 2.0 11/26/16 16:00 68 11/26/16 12:00 97.3 62 17 110/68 97 Room Air 11/26/16 12:00 69 11/26/16 09:00 53 100/56 11/26/16 08:00 96.9 92 17 117/65 97 Nasal Cannula 2.0 11/26/16 08:00 53 11/26/16 04:17 98.4 54 21 95/52 99 Nasal Cannula 3.0 11/26/16 04:00 55 11/26/16 00:43 98.7 59 20 94/57 99 Nasal Cannula 3.0 11/26/16 00:00 59 Intake and Output 11/25/16 11/26/16 19:00 07:00 Intake Total 650 ml 300 ml Output Total 680 ml 1200 ml Balance -30 ml -900 ml Intake Oral 650 ml 300 ml Output Urine Total 680 ml 1200 ml # Voids 3 # Bowel Movements 2 Laboratory Tests 11/26/16 05:15: White Blood Count 4.9, Red Blood Count 2.79L, Hemoglobin 9.0L, Hematocrit 27.9L , Mean Corpuscular Volume 100H, Mean Corpuscular Hemoglobin 32.2H, Mean Corpuscular Hemoglobin Concent 32.1, Red Cell Distribution Width 17.2H, Platelet Count 86L, Mean Platelet Volume 8.5, Neutrophils (%) (Auto) , Lymphocytes (%) (Auto) , Monocytes (%) (Auto) , Eosinophils (%) (Auto) , Basophils (%) (Auto) , Differential Total Cells Counted 100, Neutrophils % ( Manual) 43L, Lymphocytes % (Manual) 40, Monocytes % (Manual) 12H, Eosinophils % (Manual) 5H, Basophils % (Manual) 0, Band Neutrophils 0, Platelet Estimate DecreasedL, Platelet Morphology Normal, Anisocytosis 2+, Microcytosis Occasional , Macrocytosis 1+, Sodium Level 134L, Potassium Level 4.0, Chloride Level 99, Carbon Dioxide Level 22, Anion Gap 13, Blood Urea Nitrogen 11, Creatinine 1.1, Estimat Glomerular Filtration Rate > 60, Glucose Level 113H, Calcium Level 7.7L , Total Bilirubin 3.2H, Direct Bilirubin 1.5H, Aspartate Amino Transf (AST/SGOT ) 64H, Alanine Aminotransferase (ALT/SGPT) 28, Alkaline Phosphatase 51, Total Protein 6.3L, Albumin 1.6L, Globulin 4.7, Albumin/Globulin Ratio 0.3L Height (Feet): 6 Height (Inches): 3.00 Weight (Pounds): 231 General Appearance: no apparent distress EENT: TMs normal Neck: supple Cardiovascular: regular rhythm Respiratory/Chest: normal breath sounds Abdomen: soft Pelvis: no masses Extremities: normal inspection Edema: no edema noted Arm (L), no edema noted Arm (R), no edema noted Leg (L), no edema noted Leg (R), no edema noted Pedal (L), no edema noted Pedal (R), no edema noted Generalized Edema: mild edema Skin: warm/dry Lymphatic: normal anterior cervical (L), normal anterior cervical (R), normal axillary (L), normal axillary (R), normal inguinal (L), normal inguinal (R), normal other, normal posterior cervical (L), normal posterior cervical (R), normal submandibular (L), normal submandibular (R), normal supraclavicular (L), normal supraclavicular (R) TAMEKA LIANG Nov 26, 2016 22:28
[2016-11-27] VITALS: BP 105/57
[2016-11-27] MEDS: guaiFENesin 100mg/5ml Liq ud ORAL PRN ×2 (00:28→21:46)
[2016-11-27 04:00] VITALS: BP 107/57
[2016-11-27 08:00] LABS: MEAN CORPUSCULAR HEMOGLOBIN 31.6 PG (27.0-31.0); MEAN CORPUSCULAR HGB CONC 31.6 G/DL (32.0-36.0); MEAN CORPUSCULAR VOLUME 100 FL (80-99); MEAN PLATELET VOLUME 8.8 FL (6.5-10.1); PLATELET COUNT 91 K/UL (150-450); RED BLOOD COUNT 2.96 M/UL (4.70-6.10); RED CELL DISTRIBUTION WIDTH 16.8 % (11.6-14.8); WHITE BLOOD COUNT 5.4 K/UL (4.8-10.8)
[2016-11-27 08:25] VITALS: BP 112/44
--- NOTE | 2016-11-27 08:44 | General Progress Note ---
Assessment/Plan Status: stable Assessment/Plan 1. Acute Anemia, GI? Uro?. 2. Cytopenia, bilinear. 5. Alcoholic cirrhosis. 6. Protein-calorie malnourishment. 7. Hepatitic encephalopathy. 8. Pulmonary infiltrate - working in progress. 9. Hep-C 10. Hematuria 11. Imbalance, High risk for fall 9. Gastrointestinal and deep vein thrombosis prophylaxis. PLAN OF CARE: S/p EGD and blood transfusion The patient remains in medically guarded but stable condition. Deposition to SNIF once bed available Subjective ROS Limited/Unobtainable: No Constitutional: Reports: no symptoms HEENT: Reports: no symptoms Allergies: Coded Allergies: No Known Allergies (Unverified , 08/21/16) Objective Last 24 Hour Vital Signs Date Time Temp Pulse Resp B/P Pulse Ox O2 Delivery O2 Flow Rate FiO2 11/27/16 08:25 97.3 74 20 112/44 100 Nasal Cannula 2.0 11/27/16 04:00 97.9 66 16 107/57 98 Nasal Cannula 2.0 11/27/16 04:00 60 11/27/16 00:00 62 11/27/16 00:00 97.7 67 16 105/57 100 Room Air 11/26/16 20:00 63 11/26/16 20:00 97.5 66 19 108/60 100 Nasal Cannula 2.0 11/26/16 18:00 61 91/51 11/26/16 16:00 97.5 61 20 91/51 99 Nasal Cannula 2.0 11/26/16 16:00 68 11/26/16 12:00 97.3 62 17 110/68 97 Room Air 11/26/16 12:00 69 11/26/16 09:00 53 100/56 Intake and Output 11/26/16 11/27/16 19:00 07:00 Intake Total 460 ml 720 ml Output Total 640 ml 300 ml Balance -180 ml 420 ml Intake Oral 460 ml 720 ml Output Urine Total 640 ml 300 ml # Voids 3 1 # Bowel Movements 1 5 Laboratory Tests 11/27/16 05:40: White Blood Count 5.4, Red Blood Count 2.96L, Hemoglobin 9.4L, Hematocrit 29.7L , Mean Corpuscular Volume 100H, Mean Corpuscular Hemoglobin 31.6H, Mean Corpuscular Hemoglobin Concent 31.6L, Red Cell Distribution Width 16.8H, Platelet Count 91L, Mean Platelet Volume 8.8, Neutrophils (%) (Auto) , Lymphocytes (%) (Auto) , Monocytes (%) (Auto) , Eosinophils (%) (Auto) , Basophils (%) (Auto) , Neutrophils % (Manual) [Pending], Lymphocytes % (Manual) [Pending], Platelet Estimate [Pending], Platelet Morphology [Pending] Height (Feet): 6 Height (Inches): 3.00 Weight (Pounds): 230 General Appearance: no apparent distress EENT: PERRL/EOMI Neck: supple Cardiovascular: normal rate Respiratory/Chest: lungs clear Abdomen: distended, hepatomegaly, splenomegaly Extremities: non-tender Edema: 2+ Pedal (L), 2+ Pedal (R) Edema: mild edema, moderate edema Neurologic: oriented x 3 Noni Bush MD Nov 27, 2016 08:44
[2016-11-27] MEDS: Lactulose 20gm/30ml UDC ORAL SCH ×2 (09:00→17:55)
[2016-11-27 09:31] LABS: ANISOCYTOSIS 1+; BAND NEUTROPHILS % (MANUAL) 0 % (0-8); BASOPHILS % (MANUAL) 0 % (0-2); EOSINOPHILS % (MANUAL) 7 % (0-3); HYPOCHROMASIA 2+; LYMPHOCYTES % (MANUAL) 28 % (20-45); NEUTROPHILS % (MANUAL) 59 % (45-75); PLATELET ESTIMATE DECREASED; TOTAL CELLS COUNTED 100
[2016-11-27 09:32] LABS: PLATELET MORPHOLOGY NORMAL
--- NOTE | 2016-11-27 09:35 | General Progress Note ---
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 ICD Codes: I85.00 - Esophageal varices without bleeding SNOMED: 57735649, 994945331 (2) Pancytopenia ICD Codes: D61.818 - Other pancytopenia SNOMED: 392653005 (3) Alcoholic cirrhosis ICD Codes: K70.30 - Alcoholic cirrhosis of liver without ascites SNOMED: 741177681, 447589055 Assessment/Plan continue current meds ok to dc repeat EGD as out patient in 4 weeks Subjective ROS Limited/Unobtainable: Yes Allergies: Coded Allergies: No Known Allergies (Unverified , 08/21/16) Subjective no event Objective Last 24 Hour Vital Signs Date Time Temp Pulse Resp B/P Pulse Ox O2 Delivery O2 Flow Rate FiO2 11/27/16 08:25 97.3 74 20 112/44 100 Nasal Cannula 2.0 11/27/16 04:00 97.9 66 16 107/57 98 Nasal Cannula 2.0 11/27/16 04:00 60 11/27/16 00:00 62 11/27/16 00:00 97.7 67 16 105/57 100 Room Air 11/26/16 20:00 63 11/26/16 20:00 97.5 66 19 108/60 100 Nasal Cannula 2.0 11/26/16 18:00 61 91/51 11/26/16 16:00 97.5 61 20 91/51 99 Nasal Cannula 2.0 11/26/16 16:00 68 11/26/16 12:00 97.3 62 17 110/68 97 Room Air 11/26/16 12:00 69 Intake and Output 11/26/16 11/27/16 19:00 07:00 Intake Total 460 ml 720 ml Output Total 640 ml 300 ml Balance -180 ml 420 ml Intake Oral 460 ml 720 ml Output Urine Total 640 ml 300 ml # Voids 3 1 # Bowel Movements 1 5 Laboratory Tests 11/27/16 05:40: White Blood Count 5.4, Red Blood Count 2.96L, Hemoglobin 9.4L, Hematocrit 29.7L , Mean Corpuscular Volume 100H, Mean Corpuscular Hemoglobin 31.6H, Mean Corpuscular Hemoglobin Concent 31.6L, Red Cell Distribution Width 16.8H, Platelet Count 91L, Mean Platelet Volume 8.8, Neutrophils (%) (Auto) , Lymphocytes (%) (Auto) , Monocytes (%) (Auto) , Eosinophils (%) (Auto) , Basophils (%) (Auto) , Differential Total Cells Counted 100, Neutrophils % ( Manual) 59, Lymphocytes % (Manual) 28, Monocytes % (Manual) 6, Eosinophils % ( Manual) 7H, Basophils % (Manual) 0, Band Neutrophils 0, Platelet Estimate DecreasedL, Platelet Morphology Normal, Hypochromasia 2+, Anisocytosis 1+ Height (Feet): 6 Height (Inches): 3.00 Weight (Pounds): 230 General Appearance: alert EENT: normal ENT inspection Neck: normal alignment Cardiovascular: normal rate Respiratory/Chest: lungs clear Abdomen: normal bowel sounds, non tender, soft Extremities: non-tender ELIO OH Nov 27, 2016 09:35
--- NOTE | 2016-11-27 09:44 | Infectious Diseases Prog Note ---
Assessment/Plan Assessment/Plan ASSESSMENT: 66-year-old male with: Bronchitis vs Pna - SCx NRF Cxray : Bilateral basilar opacities, likely from parenchymal consolidation or edema cough ( productive ) Negative influenza doubt SBP pt has no Abd pain US : Splenomegaly and ascites, indicating portal hypertension, Negative HIV Negative C.difficile UCx : VSE.faecalis ( ? signif. low count ) Sepsis SP Leukopenia, afebrile Chronic HCV cirrhosis with cytopenias, elevated LFTs, hypoalbuminemia SP EGD with banding 11/23 - path(-) malignancy Hematuria NKDA Full Code PLAN: continue Levaquin d# 6 / 7 f/u final cultures Monitor CBC, temperatures Monitor CMP Monitor chest x-ray transfuse prn Subjective Allergies: Coded Allergies: No Known Allergies (Unverified , 08/21/16) Subjective remains afebrile. appears comfortable DC planning ongoing Objective Vital Signs Last 24 Hour Vital Signs Date Time Temp Pulse Resp B/P Pulse Ox O2 Delivery O2 Flow Rate FiO2 11/27/16 08:25 97.3 74 20 112/44 100 Nasal Cannula 2.0 11/27/16 04:00 97.9 66 16 107/57 98 Nasal Cannula 2.0 11/27/16 04:00 60 11/27/16 00:00 62 11/27/16 00:00 97.7 67 16 105/57 100 Room Air 11/26/16 20:00 63 11/26/16 20:00 97.5 66 19 108/60 100 Nasal Cannula 2.0 11/26/16 18:00 61 91/51 11/26/16 16:00 97.5 61 20 91/51 99 Nasal Cannula 2.0 11/26/16 16:00 68 11/26/16 12:00 97.3 62 17 110/68 97 Room Air 11/26/16 12:00 69 Height (Feet): 6 Height (Inches): 3.00 Weight (Pounds): 230 General Appearance: no acute distress Respiratory/Chest: no respiratory distress Cardiovascular: normal rate, regular rhythm Abdomen: normal bowel sounds, soft, non tender, non distended Microbiology Date/Time Source Procedure Growth Status 11/25/16 00:30 Sputum Gram Stain - Final Resulted 11/25/16 00:30 Sputum Sputum Culture - Preliminary NORMAL UPPER RESPIRATORY RYAN AT 24 ... Resulted 11/26/16 20:30 Stool Clostridium difficile Toxin Assay - Final Complete Laboratory Tests Test 11/27/16 05:40 White Blood Count 5.4 K/UL (4.8-10.8) Red Blood Count 2.96 M/UL (4.70-6.10) L Hemoglobin 9.4 G/DL (14.2-18.0) L Hematocrit 29.7 % (42.0-52.0) L Mean Corpuscular Volume 100 FL (80-99) H Mean Corpuscular Hemoglobin 31.6 PG (27.0-31.0) H Mean Corpuscular Hemoglobin Concent 31.6 G/DL (32.0-36.0) L Red Cell Distribution Width 16.8 % (11.6-14.8) H Platelet Count 91 K/UL (150-450) L Mean Platelet Volume 8.8 FL (6.5-10.1) Neutrophils (%) (Auto) % (45.0-75.0) Lymphocytes (%) (Auto) % (20.0-45.0) Monocytes (%) (Auto) % (1.0-10.0) Eosinophils (%) (Auto) % (0.0-3.0) Basophils (%) (Auto) % (0.0-2.0) Differential Total Cells Counted 100 Neutrophils % (Manual) 59 % (45-75) Lymphocytes % (Manual) 28 % (20-45) Monocytes % (Manual) 6 % (1-10) Eosinophils % (Manual) 7 % (0-3) H Basophils % (Manual) 0 % (0-2) Band Neutrophils 0 % (0-8) Platelet Estimate Decreased L Platelet Morphology Normal Hypochromasia 2+ Anisocytosis 1+ Current Medications Medications (Trade) Dose Ordered Sig/Jayne Route PRN Reason Start Time Stop Time Status Last Admin Dose Admin Acetaminophen (Tylenol) 500 mg Q8H PRN ORAL For Pain 11/22/16 02:45 12/22/16 02:44 11/23/16 21:57 Al Hydroxide/Mg Hydroxide (Mylanta) 30 ml Q8H PRN ORAL Abdominal cramps 11/22/16 02:45 12/22/16 02:44 Dextrose (Dextrose 50%) STAT PRN IV Hypoglycemia 11/22/16 02:30 12/22/16 02:29 Furosemide (Lasix) 20 mg DAILY ORAL 11/22/16 09:00 12/22/16 08:59 11/26/16 08:59 Guaifenesin (Robitussin) 100 mg Q4H PRN ORAL For Cough 11/22/16 02:45 12/22/16 02:44 11/27/16 00:28 Lactulose (Cephulac) 14.666 gm BID ORAL 11/22/16 09:00 12/22/16 08:59 11/26/16 17:53 Levofloxacin (Levaquin) 500 mg DAILY ORAL 11/26/16 09:00 11/29/16 08:59 11/26/16 08:59 Pantoprazole (Protonix) 40 mg ACBREAKFAST ORAL 11/26/16 06:30 12/26/16 06:29 11/27/16 05:30 Propranolol HCl (Inderal) 10 mg BID ORAL 11/22/16 09:00 12/22/16 08:59 11/25/16 19:13 Rifaximin (Xifaxan) 550 mg EVERY 12 HOURS ORAL 11/22/16 21:00 11/29/16 20:59 11/26/16 21:06 Spironolactone (Aldactone) 50 mg BID ORAL 11/22/16 09:00 12/22/16 08:59 11/26/16 08:59 Tamsulosin HCl (Flomax) 0.4 mg BEDTIME ORAL 11/24/16 21:00 12/24/16 20:59 11/25/16 21:17 KAREN BERNAL 19, 2017 09:44
[2016-11-27] MEDS: Levofloxacin 500mg tab ORAL SCH (09:50)
[2016-11-27] MEDS: Spironolactone 50mg tab ORAL SCH ×2 (09:50→17:56)
[2016-11-27] MEDS: Rifaximin 550mg tab ORAL SCH ×2 (09:50→21:37)
[2016-11-27] MEDS: Propranolol 10mg tab ORAL SCH ×2 (09:50→17:55)
--- NOTE | 2016-11-27 09:53 | Urology Progress Note ---
Assessment/Plan Assessment/Plan 1. Microhematuria. 2. Urinary tract infection. 3. Benign prostatic hypertrophy. 4. History of urinary frequency. 5. Rule out neurogenic bladder. 6. Proteinuria. 7. Left inguinal hernia. 8. Possible hydrocele. abx as ordered flomax monitor clinically cysto later Subjective Allergies: Coded Allergies: No Known Allergies (Unverified , 08/21/16) Subjective all noted, no new complaints Objective Last 24 Hour Vital Signs Date Time Temp Pulse Resp B/P Pulse Ox O2 Delivery O2 Flow Rate FiO2 11/27/16 08:25 97.3 74 20 112/44 100 Nasal Cannula 2.0 11/27/16 04:00 97.9 66 16 107/57 98 Nasal Cannula 2.0 11/27/16 04:00 60 11/27/16 00:00 62 11/27/16 00:00 97.7 67 16 105/57 100 Room Air 11/26/16 20:00 63 11/26/16 20:00 97.5 66 19 108/60 100 Nasal Cannula 2.0 11/26/16 18:00 61 91/51 11/26/16 16:00 97.5 61 20 91/51 99 Nasal Cannula 2.0 11/26/16 16:00 68 11/26/16 12:00 97.3 62 17 110/68 97 Room Air 11/26/16 12:00 69 Intake and Output 11/26/16 11/27/16 19:00 07:00 Intake Total 460 ml 720 ml Output Total 640 ml 300 ml Balance -180 ml 420 ml Intake Oral 460 ml 720 ml Output Urine Total 640 ml 300 ml # Voids 3 1 # Bowel Movements 1 5 Microbiology Date/Time Source Procedure Growth Status 11/22/16 08:10 Blood Blood Culture - Preliminary NO GROWTH AFTER 4 DAYS Resulted 11/25/16 00:30 Sputum Gram Stain - Final Resulted 11/25/16 00:30 Sputum Sputum Culture - Preliminary NORMAL UPPER RESPIRATORY RYAN AT 24 ... Resulted 11/26/16 20:30 Stool Clostridium difficile Toxin Assay - Final Complete 11/22/16 13:00 Urine,Ureter/Kidney Urine Culture - Final Enterococcus Faecalis Complete 11/22/16 01:45 Rectum VRE Culture - Final NO VANCOMYCIN RESISTANT ENTEROCOCCUS ... Complete Current Medications Medications (Trade) Dose Ordered Sig/Jayne Route PRN Reason Start Time Stop Time Status Last Admin Dose Admin Acetaminophen (Tylenol) 500 mg Q8H PRN ORAL For Pain 11/22/16 02:45 12/22/16 02:44 11/23/16 21:57 Al Hydroxide/Mg Hydroxide (Mylanta) 30 ml Q8H PRN ORAL Abdominal cramps 11/22/16 02:45 12/22/16 02:44 Dextrose (Dextrose 50%) STAT PRN IV Hypoglycemia 11/22/16 02:30 12/22/16 02:29 Furosemide (Lasix) 20 mg DAILY ORAL 11/22/16 09:00 12/22/16 08:59 11/26/16 08:59 Guaifenesin (Robitussin) 100 mg Q4H PRN ORAL For Cough 11/22/16 02:45 12/22/16 02:44 11/27/16 00:28 Lactulose (Cephulac) 14.666 gm BID ORAL 11/22/16 09:00 12/22/16 08:59 11/26/16 17:53 Levofloxacin (Levaquin) 500 mg DAILY ORAL 11/26/16 09:00 11/29/16 08:59 11/26/16 08:59 Pantoprazole (Protonix) 40 mg ACBREAKFAST ORAL 11/26/16 06:30 12/26/16 06:29 11/27/16 05:30 Propranolol HCl (Inderal) 10 mg BID ORAL 11/22/16 09:00 12/22/16 08:59 11/25/16 19:13 Rifaximin (Xifaxan) 550 mg EVERY 12 HOURS ORAL 11/22/16 21:00 11/29/16 20:59 11/26/16 21:06 Spironolactone (Aldactone) 50 mg BID ORAL 11/22/16 09:00 12/22/16 08:59 11/26/16 08:59 Tamsulosin HCl (Flomax) 0.4 mg BEDTIME ORAL 11/24/16 21:00 12/24/16 20:59 11/25/16 21:17 Laboratory Tests 11/27/16 05:40: White Blood Count 5.4, Red Blood Count 2.96L, Hemoglobin 9.4L, Hematocrit 29.7L , Mean Corpuscular Volume 100H, Mean Corpuscular Hemoglobin 31.6H, Mean Corpuscular Hemoglobin Concent 31.6L, Red Cell Distribution Width 16.8H, Platelet Count 91L, Mean Platelet Volume 8.8, Neutrophils (%) (Auto) , Lymphocytes (%) (Auto) , Monocytes (%) (Auto) , Eosinophils (%) (Auto) , Basophils (%) (Auto) , Differential Total Cells Counted 100, Neutrophils % ( Manual) 59, Lymphocytes % (Manual) 28, Monocytes % (Manual) 6, Eosinophils % ( Manual) 7H, Basophils % (Manual) 0, Band Neutrophils 0, Platelet Estimate DecreasedL, Platelet Morphology Normal, Hypochromasia 2+, Anisocytosis 1+ Height (Feet): 6 Height (Inches): 3.00 Weight (Pounds): 230 Objective exam stable JOHANN LANGSTON Nov 27, 2016 09:53
[2016-11-27 11:49] VITALS: BP 104/52
[2016-11-27 15:45] VITALS: BP 140/72
[2016-11-27 16:05] VITALS: BP 101/54
--- NOTE | 2016-11-27 17:26 | Wound Care Consultation ---
Wound Assessment Wound Assessment : Wound Present on Admission: No New Wound: Yes Status Change of Wound: No Wound Location Body Site: perineal area Wound Type: chemical burn Jossy Test: Does not Jossy Percent of Wound [place]/Red: 100 Wound Drainage Amount: None Wound Drainage Odor: None/Absent Tissue Surrounding Wound: Erythemic Wound General Appearance: Reddened Wound Comment #1 Chemical burn on perineal area Recommendation -Keep clean and dry -Perineal chemical burn Cleanse with saline pat dry apply Triad cream and leave area open to air BID and PRN soiled. -Turn and reposition -Assess and f/u accordingly for any changes DESHAWN KELLER RN Nov 27, 2016 17:26
[2016-11-27] MEDS: Tamsulosin 0.4mg cap ORAL SCH (21:37)
--- NOTE | 2016-11-27 22:47 | General Progress Note ---
Assessment/Plan Assessment/Plan Assessment/Plan ASSESSMENT: 1. Thrombocytopenia currently platelet count > 60,000 range likely consistent with end-stage cirrhosis as well as hepatomegaly, hepatosplenomegaly of abdomen as well as CAT of the abdomen and pelvis. 2. Anemia secondary to chronic disease. Ferritin is 2000, Have transfused before 3. Decrease in hemoglobin and hematocrit, rule out gastrointestinal bleed. 4. Microcytic anemia, rule out gastrointestinal bleeding. 5. Leukopenia likely secondary to cirrhosis and hepatosplenomegaly with splenic sequestration.Patient with hepatitis 6. Transaminitis. 7. Alcoholic cirrhosis. 8. Abdominal pain. 9. Coagulopathy secondary to likely liver disease. RECS: 1. Monitor counts. 2. Imaging from before reviewed 3. Paracentesis on prn basis 4. Peripheral smear has been reviewed, no schitocytes 5. Maintain hemoglobin > 7 6. Maintain platelet count above 20k 7. No heparin, aspirin, Plavix to be administered. 8. GI and DVT prophylaxis. 9. Anemia w/u shows anemia chronic disease 10. Discussed with staff. Thank you, Edd Liang MD Subjective Constitutional: Reports: no symptoms HEENT: Reports: no symptoms Cardiovascular: Reports: no symptoms Respiratory: Reports: no symptoms Gastrointestinal/Abdominal: Reports: no symptoms Genitourinary: Reports: no symptoms Neurologic/Psychiatric: Reports: no symptoms Endocrine: Reports: no symptoms Hematologic/Lymphatic: Reports: no symptoms Allergies: Coded Allergies: No Known Allergies (Unverified , 08/21/16) Objective Last 24 Hour Vital Signs Date Time Temp Pulse Resp B/P Pulse Ox O2 Delivery O2 Flow Rate FiO2 11/27/16 20:00 76 11/27/16 17:55 69 101/54 11/27/16 16:31 66 11/27/16 16:05 97.3 69 20 101/54 100 Nasal Cannula 3.0 11/27/16 12:00 68 11/27/16 11:49 97.5 61 20 104/52 99 Nasal Cannula 3.0 11/27/16 09:50 74 112/44 11/27/16 08:25 97.3 74 20 112/44 100 Nasal Cannula 2.0 11/27/16 08:00 63 11/27/16 04:00 97.9 66 16 107/57 98 Nasal Cannula 2.0 11/27/16 04:00 60 11/27/16 00:00 62 11/27/16 00:00 97.7 67 16 105/57 100 Room Air Intake and Output 11/26/16 11/27/16 19:00 07:00 Intake Total 460 ml 720 ml Output Total 640 ml 300 ml Balance -180 ml 420 ml Intake Oral 460 ml 720 ml Output Urine Total 640 ml 300 ml # Voids 3 1 # Bowel Movements 1 5 Laboratory Tests 11/27/16 05:40: White Blood Count 5.4, Red Blood Count 2.96L, Hemoglobin 9.4L, Hematocrit 29.7L , Mean Corpuscular Volume 100H, Mean Corpuscular Hemoglobin 31.6H, Mean Corpuscular Hemoglobin Concent 31.6L, Red Cell Distribution Width 16.8H, Platelet Count 91L, Mean Platelet Volume 8.8, Neutrophils (%) (Auto) , Lymphocytes (%) (Auto) , Monocytes (%) (Auto) , Eosinophils (%) (Auto) , Basophils (%) (Auto) , Differential Total Cells Counted 100, Neutrophils % ( Manual) 59, Lymphocytes % (Manual) 28, Monocytes % (Manual) 6, Eosinophils % ( Manual) 7H, Basophils % (Manual) 0, Band Neutrophils 0, Platelet Estimate DecreasedL, Platelet Morphology Normal, Hypochromasia 2+, Anisocytosis 1+ Height (Feet): 6 Height (Inches): 3.00 Weight (Pounds): 230 General Appearance: alert EENT: TMs normal Neck: supple Cardiovascular: normal rate Respiratory/Chest: lungs clear Extremities: non-tender Edema: no edema noted Arm (L), no edema noted Arm (R), no edema noted Leg (L), no edema noted Leg (R), no edema noted Pedal (L), no edema noted Pedal (R), no edema noted Generalized Edema: mild edema Neurologic: alert Lymphatic: normal anterior cervical (L), normal anterior cervical (R), normal axillary (L), normal axillary (R), normal inguinal (L), normal inguinal (R), normal other, normal posterior cervical (L), normal posterior cervical (R), normal submandibular (L), normal submandibular (R), normal supraclavicular (L), normal supraclavicular (R) TAMEKA LIANG Nov 27, 2016 22:47
[2016-11-28] VITALS: BP 102/59
[2016-11-28 04:00] VITALS: BP 104/58
[2016-11-28 07:42] LABS: MEAN CORPUSCULAR HEMOGLOBIN 31.5 PG (27.0-31.0); MEAN CORPUSCULAR HGB CONC 31.2 G/DL (32.0-36.0); MEAN CORPUSCULAR VOLUME 101 FL (80-99); MEAN PLATELET VOLUME 8.2 FL (6.5-10.1); PLATELET COUNT 86 K/UL (150-450); RED BLOOD COUNT 2.97 M/UL (4.70-6.10); RED CELL DISTRIBUTION WIDTH 16.8 % (11.6-14.8)
[2016-11-28 08:00] VITALS: BP 101/69
[2016-11-28] MEDS: Spironolactone 50mg tab ORAL SCH ×2 (08:40→18:14)
[2016-11-28] MEDS: Levofloxacin 500mg tab ORAL SCH (08:40)
[2016-11-28] MEDS: Rifaximin 550mg tab ORAL SCH ×2 (08:40→20:11)
[2016-11-28] MEDS: Lactulose 20gm/30ml UDC ORAL SCH ×2 (08:41→17:56)
[2016-11-28] MEDS: Propranolol 10mg tab ORAL SCH ×2 (08:41→17:56)
--- NOTE | 2016-11-28 09:46 | Infectious Diseases Prog Note ---
Assessment/Plan Assessment/Plan ASSESSMENT: 66-year-old male with: Bronchitis vs Pna - SCx NRF Cxray : Bilateral basilar opacities, likely from parenchymal consolidation or edema cough ( productive ) Negative influenza doubt SBP pt has no Abd pain US : Splenomegaly and ascites, indicating portal hypertension, Negative HIV Negative C.difficile UCx : VSE.faecalis ( ? signif. low count ) Sepsis SP Leukopenia, afebrile Chronic HCV cirrhosis with cytopenias, elevated LFTs, hypoalbuminemia SP EGD with banding 11/23 - path(-) malignancy Hematuria NKDA Full Code PLAN: finishes Levaquin d# today. Monitor pt off of ABX Monitor CBC, temperatures, re-culture if acute change Monitor CMP Monitor chest x-ray transfuse prn Subjective Allergies: Coded Allergies: No Known Allergies (Unverified , 08/21/16) Subjective remains afebrile. appears comfortable DC planning ongoing Objective Vital Signs Last 24 Hour Vital Signs Date Time Temp Pulse Resp B/P Pulse Ox O2 Delivery O2 Flow Rate FiO2 11/28/16 08:41 61 101/59 11/28/16 08:00 97.7 61 18 101/69 99 Room Air 11/28/16 04:00 76 11/28/16 04:00 97.2 62 20 104/58 96 Nasal Cannula 2.0 11/28/16 00:00 70 11/28/16 00:00 97.9 68 20 102/59 97 Nasal Cannula 2.0 11/27/16 20:00 76 11/27/16 17:55 69 101/54 11/27/16 16:31 66 11/27/16 16:05 97.3 69 20 101/54 100 Nasal Cannula 3.0 11/27/16 12:00 68 11/27/16 11:49 97.5 61 20 104/52 99 Nasal Cannula 3.0 11/27/16 09:50 74 112/44 Height (Feet): 6 Height (Inches): 3.00 Weight (Pounds): 231 General Appearance: no acute distress Respiratory/Chest: no respiratory distress Cardiovascular: normal rate, regular rhythm Abdomen: normal bowel sounds, soft, non tender, non distended Microbiology Date/Time Source Procedure Growth Status 11/26/16 20:30 Stool Clostridium difficile Toxin Assay - Final Complete Laboratory Tests Test 11/28/16 07:01 White Blood Count 5.0 K/UL (4.8-10.8) Red Blood Count 2.97 M/UL (4.70-6.10) L Hemoglobin 9.4 G/DL (14.2-18.0) L Hematocrit 29.9 % (42.0-52.0) L Mean Corpuscular Volume 101 FL (80-99) H Mean Corpuscular Hemoglobin 31.5 PG (27.0-31.0) H Mean Corpuscular Hemoglobin Concent 31.2 G/DL (32.0-36.0) L Red Cell Distribution Width 16.8 % (11.6-14.8) H Platelet Count 86 K/UL (150-450) L Mean Platelet Volume 8.2 FL (6.5-10.1) Neutrophils (%) (Auto) % (45.0-75.0) Lymphocytes (%) (Auto) % (20.0-45.0) Monocytes (%) (Auto) % (1.0-10.0) Eosinophils (%) (Auto) % (0.0-3.0) Basophils (%) (Auto) % (0.0-2.0) Neutrophils % (Manual) Pending Lymphocytes % (Manual) Pending Platelet Estimate Pending Platelet Morphology Pending Current Medications Medications (Trade) Dose Ordered Sig/Jayne Route PRN Reason Start Time Stop Time Status Last Admin Dose Admin Acetaminophen (Tylenol) 500 mg Q8H PRN ORAL For Pain 11/22/16 02:45 12/22/16 02:44 11/23/16 21:57 Al Hydroxide/Mg Hydroxide (Mylanta) 30 ml Q8H PRN ORAL Abdominal cramps 11/22/16 02:45 12/22/16 02:44 Dextrose (Dextrose 50%) STAT PRN IV Hypoglycemia 11/22/16 02:30 12/22/16 02:29 Furosemide (Lasix) 20 mg DAILY ORAL 11/22/16 09:00 12/22/16 08:59 11/28/16 08:40 Guaifenesin (Robitussin) 100 mg Q4H PRN ORAL For Cough 11/22/16 02:45 12/22/16 02:44 11/27/16 21:46 Lactulose (Cephulac) 14.666 gm BID ORAL 11/22/16 09:00 12/22/16 08:59 11/26/16 17:53 Levofloxacin (Levaquin) 500 mg DAILY ORAL 11/26/16 09:00 11/29/16 08:59 11/28/16 08:40 Pantoprazole (Protonix) 40 mg ACBREAKFAST ORAL 11/26/16 06:30 12/26/16 06:29 11/28/16 06:37 Propranolol HCl (Inderal) 10 mg BID ORAL 11/22/16 09:00 12/22/16 08:59 11/27/16 09:50 Rifaximin (Xifaxan) 550 mg EVERY 12 HOURS ORAL 11/22/16 21:00 11/29/16 20:59 11/28/16 08:40 Spironolactone (Aldactone) 50 mg BID ORAL 11/22/16 09:00 12/22/16 08:59 11/28/16 08:40 Tamsulosin HCl (Flomax) 0.4 mg BEDTIME ORAL 11/24/16 21:00 12/24/16 20:59 11/27/16 21:37 KAREN BERNAL 20, 2017 09:46
--- NOTE | 2016-11-28 10:28 | General Progress Note ---
Assessment/Plan Status: stable Assessment/Plan 1. Acute Anemia, GI? Uro?. 2. Cytopenia, bilinear. 5. Alcoholic cirrhosis. 6. Protein-calorie malnourishment. 7. Hepatitic encephalopathy. 8. Pulmonary infiltrate - working in progress. 9. Hep-C 10. Hematuria 11. Imbalance, High risk for fall 9. Gastrointestinal and deep vein thrombosis prophylaxis. PLAN OF CARE: S/p EGD and blood transfusion The patient remains in medically guarded but stable condition. Deposition to SNIF once bed available Subjective ROS Limited/Unobtainable: No Constitutional: Reports: weakness Cardiovascular: Reports: no symptoms Respiratory: Reports: no symptoms Allergies: Coded Allergies: No Known Allergies (Unverified , 08/21/16) Objective Last 24 Hour Vital Signs Date Time Temp Pulse Resp B/P Pulse Ox O2 Delivery O2 Flow Rate FiO2 11/28/16 08:41 61 101/59 11/28/16 08:07 71 11/28/16 08:00 97.7 61 18 101/69 99 Room Air 11/28/16 04:00 76 11/28/16 04:00 97.2 62 20 104/58 96 Nasal Cannula 2.0 11/28/16 00:00 70 11/28/16 00:00 97.9 68 20 102/59 97 Nasal Cannula 2.0 11/27/16 20:00 76 11/27/16 17:55 69 101/54 11/27/16 16:31 66 11/27/16 16:05 97.3 69 20 101/54 100 Nasal Cannula 3.0 11/27/16 12:00 68 11/27/16 11:49 97.5 61 20 104/52 99 Nasal Cannula 3.0 Intake and Output 11/27/16 11/28/16 19:00 07:00 Intake Total 490 ml 240 ml Output Total 1000 ml 400 ml Balance -510 ml -160 ml Intake Oral 490 ml 240 ml Output Urine Total 1000 ml 400 ml # Bowel Movements 1 1 Laboratory Tests 11/28/16 07:01: White Blood Count 5.0, Red Blood Count 2.97L, Hemoglobin 9.4L, Hematocrit 29.9L , Mean Corpuscular Volume 101H, Mean Corpuscular Hemoglobin 31.5H, Mean Corpuscular Hemoglobin Concent 31.2L, Red Cell Distribution Width 16.8H, Platelet Count 86L, Mean Platelet Volume 8.2, Neutrophils (%) (Auto) , Lymphocytes (%) (Auto) , Monocytes (%) (Auto) , Eosinophils (%) (Auto) , Basophils (%) (Auto) , Neutrophils % (Manual) [Pending], Lymphocytes % (Manual) [Pending], Platelet Estimate [Pending], Platelet Morphology [Pending] Height (Feet): 6 Height (Inches): 3.00 Weight (Pounds): 231 General Appearance: WD/WN, alert EENT: PERRL/EOMI Neck: supple Cardiovascular: normal rate Respiratory/Chest: lungs clear Abdomen: soft, distended Edema: 2+ Leg (L), 2+ Leg (R), 2+ Pedal (L), 2+ Pedal (R) Neurologic: oriented x 3 Noni Bush MD Nov 28, 2016 10:28
[2016-11-28 10:31] LABS: ANISOCYTOSIS 1+; BAND NEUTROPHILS % (MANUAL) 0 % (0-8); BASOPHILS % (MANUAL) 1 % (0-2); EOSINOPHILS % (MANUAL) 6 % (0-3); HYPOCHROMASIA 1+; LYMPHOCYTES % (MANUAL) 35 % (20-45); MACROCYTES 1+; NEUTROPHILS % (MANUAL) 44 % (45-75); PLATELET ESTIMATE DECREASED; PLATELET MORPHOLOGY NORMAL; TOTAL CELLS COUNTED 100
--- NOTE | 2016-11-28 11:30 | General Progress Note ---
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 ICD Codes: I85.00 - Esophageal varices without bleeding SNOMED: 76186383, 993858421 (2) Pancytopenia ICD Codes: D61.818 - Other pancytopenia SNOMED: 186320314 (3) Alcoholic cirrhosis ICD Codes: K70.30 - Alcoholic cirrhosis of liver without ascites SNOMED: 556781623, 424619194 Assessment/Plan continue current meds ok to dc repeat EGD as out patient in 4 weeks Subjective ROS Limited/Unobtainable: Yes Allergies: Coded Allergies: No Known Allergies (Unverified , 08/21/16) Subjective no event Objective Last 24 Hour Vital Signs Date Time Temp Pulse Resp B/P Pulse Ox O2 Delivery O2 Flow Rate FiO2 11/28/16 08:41 61 101/59 11/28/16 08:07 71 11/28/16 08:00 97.7 61 18 101/69 99 Room Air 11/28/16 04:00 76 11/28/16 04:00 97.2 62 20 104/58 96 Nasal Cannula 2.0 11/28/16 00:00 70 11/28/16 00:00 97.9 68 20 102/59 97 Nasal Cannula 2.0 11/27/16 20:00 76 11/27/16 17:55 69 101/54 11/27/16 16:31 66 11/27/16 16:05 97.3 69 20 101/54 100 Nasal Cannula 3.0 11/27/16 12:00 68 11/27/16 11:49 97.5 61 20 104/52 99 Nasal Cannula 3.0 Intake and Output 11/27/16 11/28/16 19:00 07:00 Intake Total 490 ml 240 ml Output Total 1000 ml 400 ml Balance -510 ml -160 ml Intake Oral 490 ml 240 ml Output Urine Total 1000 ml 400 ml # Bowel Movements 1 1 Laboratory Tests 11/28/16 07:01: White Blood Count 5.0, Red Blood Count 2.97L, Hemoglobin 9.4L, Hematocrit 29.9L , Mean Corpuscular Volume 101H, Mean Corpuscular Hemoglobin 31.5H, Mean Corpuscular Hemoglobin Concent 31.2L, Red Cell Distribution Width 16.8H, Platelet Count 86L, Mean Platelet Volume 8.2, Neutrophils (%) (Auto) , Lymphocytes (%) (Auto) , Monocytes (%) (Auto) , Eosinophils (%) (Auto) , Basophils (%) (Auto) , Differential Total Cells Counted 100, Neutrophils % ( Manual) 44L, Lymphocytes % (Manual) 35, Monocytes % (Manual) 14H, Eosinophils % (Manual) 6H, Basophils % (Manual) 1, Band Neutrophils 0, Platelet Estimate DecreasedL, Platelet Morphology Normal, Hypochromasia 1+, Anisocytosis 1+, Macrocytosis 1+ Height (Feet): 6 Height (Inches): 3.00 Weight (Pounds): 231 General Appearance: alert EENT: normal ENT inspection Neck: supple Cardiovascular: normal rate Respiratory/Chest: decreased breath sounds Abdomen: normal bowel sounds, non tender, soft Extremities: non-tender ELIO OH Nov 28, 2016 11:30
--- NOTE | 2016-11-28 11:36 | Urology Progress Note ---
Assessment/Plan Assessment/Plan 1. Microhematuria. 2. Urinary tract infection. 3. Benign prostatic hypertrophy. 4. History of urinary frequency. 5. Rule out neurogenic bladder. 6. Proteinuria. 7. Left inguinal hernia. 8. Possible hydrocele. abx as ordered flomax monitor clinically cysto later Subjective Allergies: Coded Allergies: No Known Allergies (Unverified , 08/21/16) Subjective all noted, no new complaints Objective Last 24 Hour Vital Signs Date Time Temp Pulse Resp B/P Pulse Ox O2 Delivery O2 Flow Rate FiO2 11/28/16 08:41 61 101/59 11/28/16 08:07 71 11/28/16 08:00 97.7 61 18 101/69 99 Room Air 11/28/16 04:00 76 11/28/16 04:00 97.2 62 20 104/58 96 Nasal Cannula 2.0 11/28/16 00:00 70 11/28/16 00:00 97.9 68 20 102/59 97 Nasal Cannula 2.0 11/27/16 20:00 76 11/27/16 17:55 69 101/54 11/27/16 16:31 66 11/27/16 16:05 97.3 69 20 101/54 100 Nasal Cannula 3.0 11/27/16 12:00 68 11/27/16 11:49 97.5 61 20 104/52 99 Nasal Cannula 3.0 Intake and Output 11/27/16 11/28/16 19:00 07:00 Intake Total 490 ml 240 ml Output Total 1000 ml 400 ml Balance -510 ml -160 ml Intake Oral 490 ml 240 ml Output Urine Total 1000 ml 400 ml # Bowel Movements 1 1 Microbiology Date/Time Source Procedure Growth Status 11/22/16 08:10 Blood Blood Culture - Final NO GROWTH AFTER 5 DAYS Complete 11/25/16 00:30 Sputum Gram Stain - Final Complete 11/25/16 00:30 Sputum Sputum Culture - Final NORMAL UPPER RESPIRATORY RYAN PRESENT Complete 11/26/16 20:30 Stool Clostridium difficile Toxin Assay - Final Complete 11/22/16 13:00 Urine,Ureter/Kidney Urine Culture - Final Enterococcus Faecalis Complete 11/22/16 01:45 Rectum VRE Culture - Final NO VANCOMYCIN RESISTANT ENTEROCOCCUS ... Complete Current Medications Medications (Trade) Dose Ordered Sig/Jayne Route PRN Reason Start Time Stop Time Status Last Admin Dose Admin Acetaminophen (Tylenol) 500 mg Q8H PRN ORAL For Pain 11/22/16 02:45 12/22/16 02:44 11/23/16 21:57 Al Hydroxide/Mg Hydroxide (Mylanta) 30 ml Q8H PRN ORAL Abdominal cramps 11/22/16 02:45 12/22/16 02:44 Dextrose (Dextrose 50%) STAT PRN IV Hypoglycemia 11/22/16 02:30 12/22/16 02:29 Furosemide (Lasix) 20 mg DAILY ORAL 11/22/16 09:00 12/22/16 08:59 11/28/16 08:40 Guaifenesin (Robitussin) 100 mg Q4H PRN ORAL For Cough 11/22/16 02:45 12/22/16 02:44 11/27/16 21:46 Lactulose (Cephulac) 14.666 gm BID ORAL 11/22/16 09:00 12/22/16 08:59 11/26/16 17:53 Levofloxacin (Levaquin) 500 mg DAILY ORAL 11/26/16 09:00 11/29/16 08:59 11/28/16 08:40 Pantoprazole (Protonix) 40 mg ACBREAKFAST ORAL 11/26/16 06:30 12/26/16 06:29 11/28/16 06:37 Propranolol HCl (Inderal) 10 mg BID ORAL 11/22/16 09:00 12/22/16 08:59 11/27/16 09:50 Rifaximin (Xifaxan) 550 mg EVERY 12 HOURS ORAL 11/22/16 21:00 11/29/16 20:59 11/28/16 08:40 Spironolactone (Aldactone) 50 mg BID ORAL 11/22/16 09:00 12/22/16 08:59 11/28/16 08:40 Tamsulosin HCl (Flomax) 0.4 mg BEDTIME ORAL 11/24/16 21:00 12/24/16 20:59 11/27/16 21:37 Laboratory Tests 11/28/16 07:01: White Blood Count 5.0, Red Blood Count 2.97L, Hemoglobin 9.4L, Hematocrit 29.9L , Mean Corpuscular Volume 101H, Mean Corpuscular Hemoglobin 31.5H, Mean Corpuscular Hemoglobin Concent 31.2L, Red Cell Distribution Width 16.8H, Platelet Count 86L, Mean Platelet Volume 8.2, Neutrophils (%) (Auto) , Lymphocytes (%) (Auto) , Monocytes (%) (Auto) , Eosinophils (%) (Auto) , Basophils (%) (Auto) , Differential Total Cells Counted 100, Neutrophils % ( Manual) 44L, Lymphocytes % (Manual) 35, Monocytes % (Manual) 14H, Eosinophils % (Manual) 6H, Basophils % (Manual) 1, Band Neutrophils 0, Platelet Estimate DecreasedL, Platelet Morphology Normal, Hypochromasia 1+, Anisocytosis 1+, Macrocytosis 1+ Height (Feet): 6 Height (Inches): 3.00 Weight (Pounds): 231 Objective exam stable JOHANN LANGSTON Nov 28, 2016 11:36
[2016-11-28 12:00] VITALS: BP 107/59
--- NOTE | 2016-11-28 12:30 | General Progress Note ---
Assessment/Plan Assessment/Plan ASSESSMENT: 1. Thrombocytopenia currently platelet count > 60,000 range likely consistent with end-stage cirrhosis as well as hepatomegaly, hepatosplenomegaly of abdomen as well as CAT of the abdomen and pelvis. 2. Anemia secondary to chronic disease. Ferritin is 2000, Have transfused before. s/p egd showing varices, nonbleeding 3. Decrease in hemoglobin and hematocrit, rule out gastrointestinal bleed. 4. Microcytic anemia, rule out gastrointestinal bleeding. 5. Leukopenia likely secondary to cirrhosis and hepatosplenomegaly with splenic sequestration. + Hepatitis C 6. Transaminitis. 7. Alcoholic cirrhosis. 8. Abdominal pain. 9. Coagulopathy secondary to likely liver disease. RECS: 1. Monitor counts. 2. Imaging from before reviewed 3. Paracentesis on prn basis 4. Peripheral smear has been reviewed, no schitocytes noted 5. Maintain hemoglobin > 7 6. Maintain platelet count above 20k 7. Hepatitis C treatment as an outpatient 8. GI and DVT prophylaxis. 9. Discussed with staff. Thank you, Clive Liang MD Subjective Constitutional: Reports: no symptoms HEENT: Reports: no symptoms Cardiovascular: Reports: no symptoms Respiratory: Reports: no symptoms Gastrointestinal/Abdominal: Reports: no symptoms Genitourinary: Reports: no symptoms Neurologic/Psychiatric: Reports: no symptoms Endocrine: Reports: unexplained weight loss Hematologic/Lymphatic: Reports: anemia Allergies: Coded Allergies: No Known Allergies (Unverified , 08/21/16) Subjective stable, no complaints, no hematochezia, h/h is stable, patient today talking to in room Objective Last 24 Hour Vital Signs Date Time Temp Pulse Resp B/P Pulse Ox O2 Delivery O2 Flow Rate FiO2 11/28/16 12:00 97.8 65 16 107/59 98 Room Air 11/28/16 08:41 61 101/59 11/28/16 08:07 71 11/28/16 08:00 97.7 61 18 101/69 99 Room Air 11/28/16 04:00 76 11/28/16 04:00 97.2 62 20 104/58 96 Nasal Cannula 2.0 11/28/16 00:00 70 11/28/16 00:00 97.9 68 20 102/59 97 Nasal Cannula 2.0 11/27/16 20:00 76 11/27/16 17:55 69 101/54 11/27/16 16:31 66 11/27/16 16:05 97.3 69 20 101/54 100 Nasal Cannula 3.0 Intake and Output 11/27/16 11/28/16 19:00 07:00 Intake Total 490 ml 240 ml Output Total 1000 ml 400 ml Balance -510 ml -160 ml Intake Oral 490 ml 240 ml Output Urine Total 1000 ml 400 ml # Bowel Movements 1 1 Laboratory Tests 11/28/16 07:01: White Blood Count 5.0, Red Blood Count 2.97L, Hemoglobin 9.4L, Hematocrit 29.9L , Mean Corpuscular Volume 101H, Mean Corpuscular Hemoglobin 31.5H, Mean Corpuscular Hemoglobin Concent 31.2L, Red Cell Distribution Width 16.8H, Platelet Count 86L, Mean Platelet Volume 8.2, Neutrophils (%) (Auto) , Lymphocytes (%) (Auto) , Monocytes (%) (Auto) , Eosinophils (%) (Auto) , Basophils (%) (Auto) , Differential Total Cells Counted 100, Neutrophils % ( Manual) 44L, Lymphocytes % (Manual) 35, Monocytes % (Manual) 14H, Eosinophils % (Manual) 6H, Basophils % (Manual) 1, Band Neutrophils 0, Platelet Estimate DecreasedL, Platelet Morphology Normal, Hypochromasia 1+, Anisocytosis 1+, Macrocytosis 1+ Height (Feet): 6 Height (Inches): 3.00 Weight (Pounds): 231 General Appearance: alert EENT: TMs normal Cardiovascular: normal rate Respiratory/Chest: chest wall non-tender Abdomen: soft Extremities: non-tender Edema: 1+ Arm (L), 1+ Arm (R), 1+ Leg (L), 1+ Leg (R) Edema: moderate edema Neurologic: alert Skin: warm/dry Clive Liang Nov 28, 2016 12:30
--- NOTE | 2016-11-28 14:09 | Cardiology Progress Note ---
Assessment/Plan Assessment/Plan 1. Hypotension, borderline, this is most likely due to hypoalbuminemia in the patient with liver cirrhosis, consider albumin administration if SBP <90 mmHg, there was no active GI bleed, continue propranolol. 2. Normal left ventricular systolic function with no evidence of wall motion abnormalities. 3. Liver cirrhosis with portal HTN, on aldactone and lasix for ascites. 4. Pancytopenia. 5. Profound anemia. Subjective Subjective Sinus rhythm at 75. Objective Last 24 Hour Vital Signs Date Time Temp Pulse Resp B/P Pulse Ox O2 Delivery O2 Flow Rate FiO2 11/28/16 12:00 97.8 65 16 107/59 98 Room Air 11/28/16 11:43 75 11/28/16 08:41 61 101/59 11/28/16 08:07 71 11/28/16 08:00 97.7 61 18 101/69 99 Room Air 11/28/16 04:00 76 11/28/16 04:00 97.2 62 20 104/58 96 Nasal Cannula 2.0 11/28/16 00:00 70 11/28/16 00:00 97.9 68 20 102/59 97 Nasal Cannula 2.0 11/27/16 20:00 76 11/27/16 17:55 69 101/54 11/27/16 16:31 66 11/27/16 16:05 97.3 69 20 101/54 100 Nasal Cannula 3.0 Intake and Output 11/27/16 11/28/16 19:00 07:00 Intake Total 490 ml 240 ml Output Total 1000 ml 400 ml Balance -510 ml -160 ml Intake Oral 490 ml 240 ml Output Urine Total 1000 ml 400 ml # Bowel Movements 1 1 Laboratory Tests Test 11/28/16 07:01 White Blood Count 5.0 K/UL (4.8-10.8) Red Blood Count 2.97 M/UL (4.70-6.10) L Hemoglobin 9.4 G/DL (14.2-18.0) L Hematocrit 29.9 % (42.0-52.0) L Mean Corpuscular Volume 101 FL (80-99) H Mean Corpuscular Hemoglobin 31.5 PG (27.0-31.0) H Mean Corpuscular Hemoglobin Concent 31.2 G/DL (32.0-36.0) L Red Cell Distribution Width 16.8 % (11.6-14.8) H Platelet Count 86 K/UL (150-450) L Mean Platelet Volume 8.2 FL (6.5-10.1) Neutrophils (%) (Auto) % (45.0-75.0) Lymphocytes (%) (Auto) % (20.0-45.0) Monocytes (%) (Auto) % (1.0-10.0) Eosinophils (%) (Auto) % (0.0-3.0) Basophils (%) (Auto) % (0.0-2.0) Differential Total Cells Counted 100 Neutrophils % (Manual) 44 % (45-75) L Lymphocytes % (Manual) 35 % (20-45) Monocytes % (Manual) 14 % (1-10) H Eosinophils % (Manual) 6 % (0-3) H Basophils % (Manual) 1 % (0-2) Band Neutrophils 0 % (0-8) Platelet Estimate Decreased L Platelet Morphology Normal Hypochromasia 1+ Anisocytosis 1+ Macrocytosis 1+ Microbiology Date/Time Source Procedure Growth Status 11/26/16 20:30 Stool Clostridium difficile Toxin Assay - Final Complete Objective GENERAL: The patient is a very delightful 66-year-old gentleman, in mild to minimal respiratory distress. Alert and orient x4. HEENT: Atraumatic and normocephalic. Pupils are equal, round, and reactive to light and accommodation. Extraocular muscles intact. NECK: JVP is less than 5 cm. No carotid bruits. Carotid upstrokes, 2+ bilaterally. CARDIOVASCULAR: Normal S1 and S2. There is 2/6 mid systolic murmur. PMI is at fourth intercostal space at midclavicular line. LUNGS: Diminished breath sounds in both bases in particular in the left side there is increased dullness on percussion. ABDOMEN: Distended, nontender, and soft. Positive bowel sounds. EXTREMITIES: There is 2+ bilateral lower extremity edema. LUNGS: Clear to auscultation bilaterally. JADEN VAZQUEZ Nov 28, 2016 14:09
[2016-11-28 16:00] VITALS: BP 100/57
[2016-11-28] MEDS ORDERED: D5 1/2NS 1000ml IV ONE (18:36)
[2016-11-28 20:00] VITALS: BP 101/59
[2016-11-28] MEDS: Tamsulosin 0.4mg cap ORAL SCH (20:11)
[2016-11-29] VITALS (7 sets, daily range): BP systolic 91–113; BP diastolic 54–60
[2016-11-29] MEDS: Propranolol 10mg tab ORAL SCH ×2 (09:04→17:42)
[2016-11-29] MEDS: Lactulose 20gm/30ml UDC ORAL SCH ×2 (09:04→17:42)
[2016-11-29] MEDS: Rifaximin 550mg tab ORAL SCH (09:05)
[2016-11-29] MEDS: Spironolactone 50mg tab ORAL SCH ×2 (09:05→17:41)
--- NOTE | 2016-11-29 09:32 | Infectious Diseases Prog Note ---
Assessment/Plan Assessment/Plan ASSESSMENT: 66-year-old male with: Bronchitis vs Pna - SCx NRF SP Rx Cxray 11/22: Bilateral basilar opacities, likely from parenchymal consolidation or edema cough ( productive ) Negative influenza doubt SBP pt has no Abd pain US : Splenomegaly and ascites, indicating portal hypertension, Negative HIV Negative C.difficile UCx : VSE.faecalis ( ? signif. low count ) Sepsis SP Leukopenia, afebrile Chronic HCV cirrhosis with cytopenias, elevated LFTs, hypoalbuminemia SP EGD with banding 11/23 - path(-) malignancy Hematuria NKDA Full Code PLAN: ok to DC off of ABX from ID standpoint ( 11/28 SP Levaquin d# 7 / ) Monitor CBC, temperatures, re-culture if acute change Monitor CMP Monitor chest x-ray transfuse prn DC planning Subjective Allergies: Coded Allergies: No Known Allergies (Unverified , 08/21/16) Subjective remains afebrile. appears comfortable DC planning ongoing Objective Vital Signs Last 24 Hour Vital Signs Date Time Temp Pulse Resp B/P Pulse Ox O2 Delivery O2 Flow Rate FiO2 11/29/16 09:04 76 111/59 11/29/16 04:10 98.3 88 21 105/59 96 Room Air 11/29/16 04:00 77 11/29/16 00:48 98.6 71 20 110/60 96 Room Air 11/29/16 00:00 65 11/28/16 20:00 97.7 67 20 101/59 97 Room Air 11/28/16 20:00 66 11/28/16 17:56 65 100/57 11/28/16 16:00 97.9 65 20 100/57 97 Nasal Cannula 2.0 11/28/16 16:00 70 11/28/16 12:00 97.8 65 16 107/59 98 Room Air 11/28/16 11:43 75 Height (Feet): 6 Height (Inches): 3.00 Weight (Pounds): 234 General Appearance: no acute distress Respiratory/Chest: no respiratory distress Cardiovascular: normal rate, regular rhythm Abdomen: normal bowel sounds, soft, non tender, non distended Microbiology Date/Time Source Procedure Growth Status 11/26/16 20:30 Stool Clostridium difficile Toxin Assay - Final Complete Current Medications Medications (Trade) Dose Ordered Sig/Jayne Route PRN Reason Start Time Stop Time Status Last Admin Dose Admin Acetaminophen (Tylenol) 500 mg Q8H PRN ORAL For Pain 11/22/16 02:45 12/22/16 02:44 11/23/16 21:57 Al Hydroxide/Mg Hydroxide (Mylanta) 30 ml Q8H PRN ORAL Abdominal cramps 11/22/16 02:45 12/22/16 02:44 Dextrose (Dextrose 50%) STAT PRN IV Hypoglycemia 11/22/16 02:30 12/22/16 02:29 Furosemide (Lasix) 20 mg DAILY ORAL 11/22/16 09:00 12/22/16 08:59 11/29/16 09:05 Guaifenesin (Robitussin) 100 mg Q4H PRN ORAL For Cough 11/22/16 02:45 12/22/16 02:44 11/27/16 21:46 Lactulose (Cephulac) 14.666 gm BID ORAL 11/22/16 09:00 12/22/16 08:59 11/29/16 09:04 Pantoprazole (Protonix) 40 mg ACBREAKFAST ORAL 11/26/16 06:30 12/26/16 06:29 11/29/16 06:09 Propranolol HCl (Inderal) 10 mg BID ORAL 11/22/16 09:00 12/22/16 08:59 11/29/16 09:04 Rifaximin (Xifaxan) 550 mg EVERY 12 HOURS ORAL 11/22/16 21:00 11/29/16 20:59 11/29/16 09:05 Spironolactone (Aldactone) 50 mg BID ORAL 11/22/16 09:00 12/22/16 08:59 11/29/16 09:05 Tamsulosin HCl (Flomax) 0.4 mg BEDTIME ORAL 11/24/16 21:00 12/24/16 20:59 11/28/16 20:11 KAREN BERNAL 21, 2017 09:32
--- NOTE | 2016-11-29 10:00 | General Progress Note ---
Assessment/Plan Status: stable Assessment/Plan 1. Acute Anemia, GI? Uro?. 2. Cytopenia, bilinear. 5. Alcoholic cirrhosis. 6. Protein-calorie malnourishment. 7. Hepatitic encephalopathy. 8. Pulmonary infiltrate - working in progress. 9. Hep-C 10. Hematuria 11. Imbalance, High risk for fall 9. Gastrointestinal and deep vein thrombosis prophylaxis. PLAN OF CARE: S/p EGD and blood transfusion The patient remains in medically guarded but stable condition. Deposition to SN[facility] once bed available Subjective ROS Limited/Unobtainable: No Constitutional: Reports: no symptoms HEENT: Reports: no symptoms Cardiovascular: Reports: no symptoms Allergies: Coded Allergies: No Known Allergies (Unverified , 08/21/16) Objective Last 24 Hour Vital Signs Date Time Temp Pulse Resp B/P Pulse Ox O2 Delivery O2 Flow Rate FiO2 11/29/16 09:04 76 111/59 11/29/16 08:00 98.1 76 18 111/59 85 Room Air 11/29/16 07:37 74 11/29/16 04:10 98.3 88 21 105/59 96 Room Air 11/29/16 04:00 77 11/29/16 00:48 98.6 71 20 110/60 96 Room Air 11/29/16 00:00 65 11/28/16 20:00 97.7 67 20 101/59 97 Room Air 11/28/16 20:00 66 11/28/16 17:56 65 100/57 11/28/16 16:00 97.9 65 20 100/57 97 Nasal Cannula 2.0 11/28/16 16:00 70 11/28/16 12:00 97.8 65 16 107/59 98 Room Air 11/28/16 11:43 75 Intake and Output 11/28/16 11/29/16 19:00 07:00 Intake Total 650 ml 300 ml Output Total 640 ml 400 ml Balance 10 ml -100 ml Intake Oral 650 ml 300 ml Output Urine Total 640 ml 400 ml # Voids 3 2 # Bowel Movements 1 Height (Feet): 6 Height (Inches): 3.00 Weight (Pounds): 234 General Appearance: no apparent distress EENT: PERRL/EOMI Neck: supple Cardiovascular: normal rate Respiratory/Chest: lungs clear Abdomen: other - protuberant Edema: 2+ Pedal (L), 2+ Pedal (R) Neurologic: oriented x 3 Noni Bush MD Nov 29, 2016 10:00
--- NOTE | 2016-11-29 10:24 | Urology Progress Note ---
Assessment/Plan Assessment/Plan 1. Microhematuria. 2. Urinary tract infection. 3. Benign prostatic hypertrophy. 4. History of urinary frequency. 5. Rule out neurogenic bladder. 6. Proteinuria. 7. Left inguinal hernia. 8. Possible hydrocele. abx, renew levaquin flomax monitor clinically cysto later consider checking PVR Subjective Allergies: Coded Allergies: No Known Allergies (Unverified , 08/21/16) Subjective all noted, no new complaints Objective Last 24 Hour Vital Signs Date Time Temp Pulse Resp B/P Pulse Ox O2 Delivery O2 Flow Rate FiO2 11/29/16 09:04 76 111/59 11/29/16 08:00 98.1 76 18 111/59 85 Room Air 11/29/16 07:37 74 11/29/16 04:10 98.3 88 21 105/59 96 Room Air 11/29/16 04:00 77 11/29/16 00:48 98.6 71 20 110/60 96 Room Air 11/29/16 00:00 65 11/28/16 20:00 97.7 67 20 101/59 97 Room Air 11/28/16 20:00 66 11/28/16 17:56 65 100/57 11/28/16 16:00 97.9 65 20 100/57 97 Nasal Cannula 2.0 11/28/16 16:00 70 11/28/16 12:00 97.8 65 16 107/59 98 Room Air 11/28/16 11:43 75 Intake and Output 11/28/16 11/29/16 19:00 07:00 Intake Total 650 ml 300 ml Output Total 640 ml 400 ml Balance 10 ml -100 ml Intake Oral 650 ml 300 ml Output Urine Total 640 ml 400 ml # Voids 3 2 # Bowel Movements 1 Microbiology Date/Time Source Procedure Growth Status 11/22/16 08:10 Blood Blood Culture - Final NO GROWTH AFTER 5 DAYS Complete 11/25/16 00:30 Sputum Gram Stain - Final Complete 11/25/16 00:30 Sputum Sputum Culture - Final NORMAL UPPER RESPIRATORY RYAN PRESENT Complete 11/26/16 20:30 Stool Clostridium difficile Toxin Assay - Final Complete 11/22/16 13:00 Urine,Ureter/Kidney Urine Culture - Final Enterococcus Faecalis Complete 11/22/16 01:45 Rectum VRE Culture - Final NO VANCOMYCIN RESISTANT ENTEROCOCCUS ... Complete Current Medications Medications (Trade) Dose Ordered Sig/Jayne Route PRN Reason Start Time Stop Time Status Last Admin Dose Admin Acetaminophen (Tylenol) 500 mg Q8H PRN ORAL For Pain 11/22/16 02:45 12/22/16 02:44 11/23/16 21:57 Al Hydroxide/Mg Hydroxide (Mylanta) 30 ml Q8H PRN ORAL Abdominal cramps 11/22/16 02:45 12/22/16 02:44 Dextrose (Dextrose 50%) STAT PRN IV Hypoglycemia 11/22/16 02:30 12/22/16 02:29 Furosemide (Lasix) 20 mg DAILY ORAL 11/22/16 09:00 12/22/16 08:59 11/29/16 09:05 Guaifenesin (Robitussin) 100 mg Q4H PRN ORAL For Cough 11/22/16 02:45 12/22/16 02:44 11/27/16 21:46 Lactulose (Cephulac) 14.666 gm BID ORAL 11/22/16 09:00 12/22/16 08:59 11/29/16 09:04 Pantoprazole (Protonix) 40 mg ACBREAKFAST ORAL 11/26/16 06:30 12/26/16 06:29 11/29/16 06:09 Propranolol HCl (Inderal) 10 mg BID ORAL 11/22/16 09:00 12/22/16 08:59 11/29/16 09:04 Rifaximin (Xifaxan) 550 mg EVERY 12 HOURS ORAL 11/22/16 21:00 11/29/16 20:59 11/29/16 09:05 Spironolactone (Aldactone) 50 mg BID ORAL 11/22/16 09:00 12/22/16 08:59 11/29/16 09:05 Tamsulosin HCl (Flomax) 0.4 mg BEDTIME ORAL 11/24/16 21:00 12/24/16 20:59 11/28/16 20:11 Height (Feet): 6 Height (Inches): 3.00 Weight (Pounds): 234 Objective exam stable JOHANN LANGSTON Nov 29, 2016 10:24
--- NOTE | 2016-11-29 11:50 | Cardiology Report ---
APPROVED REPORT EKG Measurement Heart [id number] Sinus rhythm with 1st degree AV block Possible Anterior infarct, age undetermined Abnormal ECG
--- NOTE | 2016-11-29 11:50 | General Progress Note ---
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 ICD Codes: I85.00 - Esophageal varices without bleeding SNOMED: 90283702, 047040675 (2) Pancytopenia ICD Codes: D61.818 - Other pancytopenia SNOMED: 746512523 (3) Alcoholic cirrhosis ICD Codes: K70.30 - Alcoholic cirrhosis of liver without ascites SNOMED: 493955320, 357108226 Assessment/Plan continue current meds ok to dc repeat EGD as out patient in 4 weeks Subjective ROS Limited/Unobtainable: Yes Allergies: Coded Allergies: No Known Allergies (Unverified , 08/21/16) Subjective no event Objective Last 24 Hour Vital Signs Date Time Temp Pulse Resp B/P Pulse Ox O2 Delivery O2 Flow Rate FiO2 11/29/16 09:04 76 111/59 11/29/16 08:00 98.1 76 18 111/59 85 Room Air 11/29/16 07:37 74 11/29/16 04:10 98.3 88 21 105/59 96 Room Air 11/29/16 04:00 77 11/29/16 00:48 98.6 71 20 110/60 96 Room Air 11/29/16 00:00 65 11/28/16 20:00 97.7 67 20 101/59 97 Room Air 11/28/16 20:00 66 11/28/16 17:56 65 100/57 11/28/16 16:00 97.9 65 20 100/57 97 Nasal Cannula 2.0 11/28/16 16:00 70 11/28/16 12:00 97.8 65 16 107/59 98 Room Air Intake and Output 11/28/16 11/29/16 19:00 07:00 Intake Total 650 ml 300 ml Output Total 640 ml 400 ml Balance 10 ml -100 ml Intake Oral 650 ml 300 ml Output Urine Total 640 ml 400 ml # Voids 3 2 # Bowel Movements 1 Height (Feet): 6 Height (Inches): 3.00 Weight (Pounds): 234 General Appearance: alert EENT: normal ENT inspection Neck: supple Cardiovascular: normal rate Respiratory/Chest: lungs clear Abdomen: normal bowel sounds, non tender, soft Extremities: non-tender ELIO OH Nov 29, 2016 11:50
--- NOTE | 2016-11-29 16:46 | General Progress Note ---
Assessment/Plan Assessment/Plan ASSESSMENT: 1. Thrombocytopenia currently platelet count > 60,000 range likely consistent with end-stage cirrhosis as well as hepatomegaly, hepatosplenomegaly of abdomen as well as CAT of the abdomen and pelvis 2. Anemia secondary to chronic disease. Ferritin is 2000, Have transfused before. s/p egd showing varices, nonbleeding 3. Decrease in hemoglobin and hematocrit, rule out gastrointestinal bleed. 4. Microcytic anemia, rule out gastrointestinal bleeding. 5. Leukopenia likely secondary to cirrhosis and hepatosplenomegaly with splenic sequestration. + Hepatitis C 6. Transaminitis. 7. Alcoholic cirrhosis. 8. Abdominal pain. 9. Coagulopathy secondary to likely liver disease. RECS: 1. Monitor counts. 2. Appreciate GI and uro recs 3. Paracentesis on prn basis 4. Peripheral smear has been reviewed, no schistocytes noted 5. Maintain hemoglobin > 7 6. Maintain platelet count above 20k 7. Hepatitis C treatment as an outpatient 8. GI and DVT prophylaxis. 9. Discussed with staff. Thank you, Clive Liang MD Subjective Constitutional: Reports: no symptoms HEENT: Reports: no symptoms Cardiovascular: Reports: no symptoms Respiratory: Reports: no symptoms Gastrointestinal/Abdominal: Reports: poor appetite Genitourinary: Reports: no symptoms Neurologic/Psychiatric: Reports: no symptoms Endocrine: Reports: no symptoms Hematologic/Lymphatic: Reports: anemia Allergies: Coded Allergies: No Known Allergies (Unverified , 08/21/16) Subjective stable, no complaints, no hematochezia, h/h is stable, no fevers, no chills Objective Last 24 Hour Vital Signs Date Time Temp Pulse Resp B/P Pulse Ox O2 Delivery O2 Flow Rate FiO2 11/29/16 12:00 98.2 72 18 113/60 98 Room Air 11/29/16 11:41 69 11/29/16 09:04 76 111/59 11/29/16 08:00 98.1 76 18 111/59 85 Room Air 11/29/16 07:37 74 11/29/16 04:10 98.3 88 21 105/59 96 Room Air 11/29/16 04:00 77 11/29/16 00:48 98.6 71 20 110/60 96 Room Air 11/29/16 00:00 65 11/28/16 20:00 97.7 67 20 101/59 97 Room Air 11/28/16 20:00 66 11/28/16 17:56 65 100/57 Intake and Output 11/28/16 11/29/16 19:00 07:00 Intake Total 650 ml 300 ml Output Total 640 ml 400 ml Balance 10 ml -100 ml Intake Oral 650 ml 300 ml Output Urine Total 640 ml 400 ml # Voids 3 2 # Bowel Movements 1 Height (Feet): 6 Height (Inches): 3.00 Weight (Pounds): 234 General Appearance: alert EENT: TMs normal Neck: supple Cardiovascular: regular rhythm Respiratory/Chest: lungs clear Abdomen: soft Extremities: normal inspection Edema: no edema noted Leg (L), no edema noted Leg (R) Edema: mild edema Neurologic: alert Skin: normal pigmentation Clive Liang Nov 29, 2016 16:46
[2016-11-29] MEDS: Tamsulosin 0.4mg cap ORAL SCH (21:49)
[2016-11-29] MEDS ORDERED: Levofloxacin 500mg tab ORAL SCH (23:00)
[2016-11-30 00:25] VITALS: BP 113/70
[2016-11-30] MEDS: guaiFENesin 100mg/5ml Liq ud ORAL PRN ×2 (02:19→06:58)
[2016-11-30 04:21] VITALS: BP 107/59
[2016-11-30 08:00] VITALS: BP 105/56
[2016-11-30 08:35] VITALS: BP 105/56
[2016-11-30] MEDS: Propranolol 10mg tab ORAL SCH (08:35)
[2016-11-30] MEDS: Spironolactone 50mg tab ORAL SCH (08:35)
[2016-11-30] MEDS: Lactulose 20gm/30ml UDC ORAL SCH (08:36)
--- NOTE | 2016-11-30 09:06 | Infectious Diseases Prog Note ---
Assessment/Plan Assessment/Plan ASSESSMENT: 66-year-old male with: Bronchitis vs Pna - SCx NRF SP Rx Cxray 11/22: Bilateral basilar opacities, likely from parenchymal consolidation or edema cough ( productive ) Negative influenza doubt SBP pt has no Abd pain US : Splenomegaly and ascites, indicating portal hypertension, Negative HIV Negative C.difficile UCx : VSE.faecalis ( ? signif. low count ) Sepsis SP Leukopenia, afebrile Chronic HCV cirrhosis with cytopenias, elevated LFTs, hypoalbuminemia SP EGD with banding 11/23 - path(-) malignancy Hematuria NKDA Full Code PLAN: ok to DC off of ABX from ID standpoint ( 11/28 SP Levaquin d# 7 / ) Monitor CBC, temperatures, re-culture if acute change Monitor CMP Monitor chest x-ray transfuse prn DC planning Subjective Allergies: Coded Allergies: No Known Allergies (Unverified , 08/21/16) Subjective remains afebrile. appears comfortable DC planning ongoing Objective Vital Signs Last 24 Hour Vital Signs Date Time Temp Pulse Resp B/P Pulse Ox O2 Delivery O2 Flow Rate FiO2 11/30/16 08:35 64 105/56 11/30/16 04:21 98.3 68 19 107/59 98 Nasal Cannula 3.0 11/30/16 04:00 72 11/30/16 00:25 98.7 65 20 113/70 94 Nasal Cannula 3.0 11/29/16 21:49 99/55 11/29/16 20:00 98.2 62 21 91/54 99 Room Air 11/29/16 20:00 63 11/29/16 16:00 98.1 67 20 100/55 99 Room Air 11/29/16 12:00 98.2 72 18 113/60 98 Room Air 11/29/16 11:41 69 Height (Feet): 6 Height (Inches): 3.00 Weight (Pounds): 236 General Appearance: no acute distress Respiratory/Chest: no respiratory distress Cardiovascular: normal rate, regular rhythm Abdomen: normal bowel sounds, soft, non tender, non distended Current Medications Medications (Trade) Dose Ordered Sig/Jayne Route PRN Reason Start Time Stop Time Status Last Admin Dose Admin Acetaminophen (Tylenol) 500 mg Q8H PRN ORAL For Pain 11/22/16 02:45 12/22/16 02:44 11/23/16 21:57 Al Hydroxide/Mg Hydroxide (Mylanta) 30 ml Q8H PRN ORAL Abdominal cramps 11/22/16 02:45 12/22/16 02:44 Dextrose (Dextrose 50%) STAT PRN IV Hypoglycemia 11/22/16 02:30 12/22/16 02:29 Furosemide (Lasix) 20 mg DAILY ORAL 11/22/16 09:00 12/22/16 08:59 11/30/16 08:35 Guaifenesin (Robitussin) 100 mg Q4H PRN ORAL For Cough 11/22/16 02:45 12/22/16 02:44 11/30/16 06:58 Lactulose (Cephulac) 14.666 gm BID ORAL 11/22/16 09:00 12/22/16 08:59 11/29/16 09:04 Levofloxacin (Levaquin) 500 mg DAILY@2100 ORAL 11/29/16 23:00 12/06/16 22:59 11/30/16 00:42 Pantoprazole (Protonix) 40 mg ACBREAKFAST ORAL 11/26/16 06:30 12/26/16 06:29 11/30/16 06:58 Propranolol HCl (Inderal) 10 mg BID ORAL 11/22/16 09:00 12/22/16 08:59 11/30/16 08:35 Spironolactone (Aldactone) 50 mg BID ORAL 11/22/16 09:00 12/22/16 08:59 11/30/16 08:35 Tamsulosin HCl (Flomax) 0.4 mg BEDTIME ORAL 11/24/16 21:00 12/24/16 20:59 11/29/16 21:49 KAREN BERNAL 22, 2017 09:06
--- NOTE | 2016-11-30 09:07 | Urology Progress Note ---
Assessment/Plan Assessment/Plan 1. Microhematuria. 2. Urinary tract infection. 3. Benign prostatic hypertrophy. 4. History of urinary frequency. 5. Rule out neurogenic bladder. 6. Proteinuria. 7. Left inguinal hernia. 8. Possible hydrocele. abx, sp levaquin, ok to stop per ID flomax monitor clinically cysto later consider checking PVR check scrotal u/s Subjective Allergies: Coded Allergies: No Known Allergies (Unverified , 08/21/16) Subjective all noted, no new complaints Objective Last 24 Hour Vital Signs Date Time Temp Pulse Resp B/P Pulse Ox O2 Delivery O2 Flow Rate FiO2 11/30/16 08:35 64 105/56 11/30/16 04:21 98.3 68 19 107/59 98 Nasal Cannula 3.0 11/30/16 04:00 72 11/30/16 00:25 98.7 65 20 113/70 94 Nasal Cannula 3.0 11/29/16 21:49 99/55 11/29/16 20:00 98.2 62 21 91/54 99 Room Air 11/29/16 20:00 63 11/29/16 16:00 98.1 67 20 100/55 99 Room Air 11/29/16 12:00 98.2 72 18 113/60 98 Room Air 11/29/16 11:41 69 11/29/16 09:04 76 111/59 Intake and Output 11/29/16 11/30/16 19:00 07:00 Intake Total 560 ml 260 ml Output Total 1100 ml Balance 560 ml -840 ml Intake Oral 560 ml 260 ml Output Urine Total 1100 ml # Voids 4 # Bowel Movements 2 Current Medications Medications (Trade) Dose Ordered Sig/Jayne Route PRN Reason Start Time Stop Time Status Last Admin Dose Admin Acetaminophen (Tylenol) 500 mg Q8H PRN ORAL For Pain 11/22/16 02:45 12/22/16 02:44 11/23/16 21:57 Al Hydroxide/Mg Hydroxide (Mylanta) 30 ml Q8H PRN ORAL Abdominal cramps 11/22/16 02:45 12/22/16 02:44 Dextrose (Dextrose 50%) STAT PRN IV Hypoglycemia 11/22/16 02:30 12/22/16 02:29 Furosemide (Lasix) 20 mg DAILY ORAL 11/22/16 09:00 12/22/16 08:59 11/30/16 08:35 Guaifenesin (Robitussin) 100 mg Q4H PRN ORAL For Cough 11/22/16 02:45 12/22/16 02:44 11/30/16 06:58 Lactulose (Cephulac) 14.666 gm BID ORAL 11/22/16 09:00 12/22/16 08:59 11/29/16 09:04 Levofloxacin (Levaquin) 500 mg DAILY@2100 ORAL 11/29/16 23:00 12/06/16 22:59 11/30/16 00:42 Pantoprazole (Protonix) 40 mg ACBREAKFAST ORAL 11/26/16 06:30 12/26/16 06:29 11/30/16 06:58 Propranolol HCl (Inderal) 10 mg BID ORAL 11/22/16 09:00 12/22/16 08:59 11/30/16 08:35 Spironolactone (Aldactone) 50 mg BID ORAL 11/22/16 09:00 12/22/16 08:59 11/30/16 08:35 Tamsulosin HCl (Flomax) 0.4 mg BEDTIME ORAL 11/24/16 21:00 12/24/16 20:59 11/29/16 21:49 Current Medications Medications (Trade) Dose Ordered Sig/Jayne Route PRN Reason Start Time Stop Time Status Last Admin Dose Admin Acetaminophen (Tylenol) 500 mg Q8H PRN ORAL For Pain 11/22/16 02:45 12/22/16 02:44 11/23/16 21:57 Al Hydroxide/Mg Hydroxide (Mylanta) 30 ml Q8H PRN ORAL Abdominal cramps 11/22/16 02:45 12/22/16 02:44 Dextrose (Dextrose 50%) STAT PRN IV Hypoglycemia 11/22/16 02:30 12/22/16 02:29 Furosemide (Lasix) 20 mg DAILY ORAL 11/22/16 09:00 12/22/16 08:59 11/30/16 08:35 Guaifenesin (Robitussin) 100 mg Q4H PRN ORAL For Cough 11/22/16 02:45 12/22/16 02:44 11/30/16 06:58 Lactulose (Cephulac) 14.666 gm BID ORAL 11/22/16 09:00 12/22/16 08:59 11/29/16 09:04 Levofloxacin (Levaquin) 500 mg DAILY@2100 ORAL 11/29/16 23:00 12/06/16 22:59 11/30/16 00:42 Pantoprazole (Protonix) 40 mg ACBREAKFAST ORAL 11/26/16 06:30 12/26/16 06:29 11/30/16 06:58 Propranolol HCl (Inderal) 10 mg BID ORAL 11/22/16 09:00 12/22/16 08:59 11/30/16 08:35 Spironolactone (Aldactone) 50 mg BID ORAL 11/22/16 09:00 12/22/16 08:59 11/30/16 08:35 Tamsulosin HCl (Flomax) 0.4 mg BEDTIME ORAL 11/24/16 21:00 12/24/16 20:59 11/29/16 21:49 Height (Feet): 6 Height (Inches): 3.00 Weight (Pounds): 236 Objective exam stable JOHANN LANGSTON Nov 30, 2016 09:07
--- NOTE | 2016-11-30 09:49 | General Progress Note ---
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 ICD Codes: I85.00 - Esophageal varices without bleeding SNOMED: 55022595, 262846857 (2) Pancytopenia ICD Codes: D61.818 - Other pancytopenia SNOMED: 506629313 (3) Alcoholic cirrhosis ICD Codes: K70.30 - Alcoholic cirrhosis of liver without ascites SNOMED: 487044479, 849837090 Assessment/Plan continue current meds ok to dc repeat EGD as out patient in 4 weeks Subjective ROS Limited/Unobtainable: Yes Allergies: Coded Allergies: No Known Allergies (Unverified , 08/21/16) Subjective no event Objective Last 24 Hour Vital Signs Date Time Temp Pulse Resp B/P Pulse Ox O2 Delivery O2 Flow Rate FiO2 11/30/16 08:35 64 105/56 11/30/16 08:00 97.0 64 17 105/56 98 Room Air 11/30/16 04:21 98.3 68 19 107/59 98 Nasal Cannula 3.0 11/30/16 04:00 72 11/30/16 00:25 98.7 65 20 113/70 94 Nasal Cannula 3.0 11/29/16 21:49 99/55 11/29/16 20:00 98.2 62 21 91/54 99 Room Air 11/29/16 20:00 63 11/29/16 16:00 98.1 67 20 100/55 99 Room Air 11/29/16 12:00 98.2 72 18 113/60 98 Room Air 11/29/16 11:41 69 Intake and Output 11/29/16 11/30/16 19:00 07:00 Intake Total 560 ml 260 ml Output Total 1100 ml Balance 560 ml -840 ml Intake Oral 560 ml 260 ml Output Urine Total 1100 ml # Voids 4 # Bowel Movements 2 Height (Feet): 6 Height (Inches): 3.00 Weight (Pounds): 236 General Appearance: alert EENT: normal ENT inspection Neck: supple Cardiovascular: normal rate Respiratory/Chest: decreased breath sounds Abdomen: normal bowel sounds, non tender, soft Extremities: non-tender ELIO OH Nov 30, 2016 09:49
--- NOTE | 2016-11-30 12:20 | General Progress Note ---
Assessment/Plan Status: stable Assessment/Plan 1. Acute Anemia, GI? Uro?. 2. Cytopenia, bilinear. 5. Alcoholic cirrhosis. 6. Protein-calorie malnourishment. 7. Hepatitic encephalopathy. 8. Pulmonary infiltrate - working in progress. 9. Hep-C 10. Hematuria 11. Imbalance, High risk for fall 9. Gastrointestinal and deep vein thrombosis prophylaxis. PLAN OF CARE: S/p EGD and blood transfusion The patient remains in medically guarded but stable condition. Deposition to SN today Subjective ROS Limited/Unobtainable: No Constitutional: Reports: no symptoms HEENT: Reports: no symptoms Cardiovascular: Reports: no symptoms Gastrointestinal/Abdominal: Reports: abdomen distended Allergies: Coded Allergies: No Known Allergies (Unverified , 08/21/16) Objective Last 24 Hour Vital Signs Date Time Temp Pulse Resp B/P Pulse Ox O2 Delivery O2 Flow Rate FiO2 11/30/16 08:35 64 105/56 11/30/16 08:00 97.0 64 17 105/56 98 Room Air 11/30/16 08:00 62 11/30/16 04:21 98.3 68 19 107/59 98 Nasal Cannula 3.0 11/30/16 04:00 72 11/30/16 00:25 98.7 65 20 113/70 94 Nasal Cannula 3.0 11/29/16 21:49 99/55 11/29/16 20:00 98.2 62 21 91/54 99 Room Air 11/29/16 20:00 63 11/29/16 16:00 98.1 67 20 100/55 99 Room Air Intake and Output 11/29/16 11/30/16 19:00 07:00 Intake Total 560 ml 260 ml Output Total 1100 ml Balance 560 ml -840 ml Intake Oral 560 ml 260 ml Output Urine Total 1100 ml # Voids 4 # Bowel Movements 2 Height (Feet): 6 Height (Inches): 3.00 Weight (Pounds): 236 General Appearance: no apparent distress EENT: PERRL/EOMI Neck: supple Cardiovascular: normal rate Respiratory/Chest: lungs clear Abdomen: distended Edema: 2+ Leg (L), 2+ Leg (R), 2+ Pedal (L), 2+ Pedal (R) Neurologic: oriented x 3 Noni Bush MD Nov 30, 2016 12:20
[2016-11-30] MEDS ORDERED: FLOMAX0.4 MG ORAL (12:59)
[2016-11-30] MEDS ORDERED: INDERAL10 MG GT (13:00)
[2016-11-30] MEDS ORDERED: LACTULOSE20 GM/301 ORAL (13:02)
[2016-11-30] MEDS ORDERED: TYLENOL650 MG/20. ORAL (13:03)
[2016-11-30] MEDS ORDERED: MYLANTA30 M1 ORAL (13:04)
[2016-11-30] MEDS ORDERED: ROBITUSSIN100 MG/52 ORAL (13:06)
--- NOTE | 2016-11-30 18:56 | General Progress Note ---
Assessment/Plan Assessment/Plan ASSESSMENT: 1. Thrombocytopenia currently platelet count > 60,000 range likely consistent with end-stage cirrhosis as well as hepatomegaly, hepatosplenomegaly of abdomen as well as CAT of the abdomen and pelvis 2. Anemia secondary to chronic disease. Ferritin is 2000, Have transfused before. s/p egd showing varices, nonbleeding 3. Decrease in hemoglobin and hematocrit, rule out gastrointestinal bleed. 4. Microcytic anemia, rule out gastrointestinal bleeding. 5. Leukopenia likely secondary to cirrhosis and hepatosplenomegaly with splenic sequestration. + Hepatitis C 6. Transaminitis. 7. Alcoholic cirrhosis. 8. Abdominal pain. 9. Coagulopathy secondary to likely liver disease. RECS: 1. Monitor counts. 2. Appreciate GI and uro recs, a/p egd which shows varices 3. Paracentesis on prn basis 4. Peripheral smear has been reviewed, no schistocytes noted 5. Maintain hemoglobin > 7 6. Maintain platelet count above 20k 7. Hepatitis C treatment as an outpatient 8. GI and DVT prophylaxis. 9. Discussed with staff. Thank you, Clive Liang MD Subjective Constitutional: Reports: no symptoms HEENT: Reports: no symptoms Cardiovascular: Reports: no symptoms Respiratory: Reports: no symptoms Gastrointestinal/Abdominal: Reports: poor fluid intake Genitourinary: Reports: no symptoms Neurologic/Psychiatric: Reports: no symptoms Endocrine: Reports: no symptoms Hematologic/Lymphatic: Reports: anemia Allergies: Coded Allergies: No Known Allergies (Unverified , 08/21/16) Subjective stable, no complaints, no hematochezia, h/h is stable, no fevers, no chills noted, to be discharged today Objective Last 24 Hour Vital Signs Date Time Temp Pulse Resp B/P Pulse Ox O2 Delivery O2 Flow Rate FiO2 11/30/16 12:00 68 11/30/16 08:35 64 105/56 11/30/16 08:00 97.0 64 17 105/56 98 Room Air 11/30/16 08:00 62 11/30/16 04:21 98.3 68 19 107/59 98 Nasal Cannula 3.0 11/30/16 04:00 72 11/30/16 00:25 98.7 65 20 113/70 94 Nasal Cannula 3.0 11/29/16 21:49 99/55 11/29/16 20:00 98.2 62 21 91/54 99 Room Air 3/21/17 20:00 63 Intake and Output 11/29/16 11/30/16 19:00 07:00 Intake Total 560 ml 260 ml Output Total 1100 ml Balance 560 ml -840 ml Intake Oral 560 ml 260 ml Output Urine Total 1100 ml # Voids 4 # Bowel Movements 2 Height (Feet): 6 Height (Inches): 3.00 Weight (Pounds): 236 General Appearance: no apparent distress EENT: pharynx normal Neck: supple Cardiovascular: regular rhythm Respiratory/Chest: lungs clear Abdomen: normal bowel sounds Extremities: non-tender Edema: 1+ Leg (L), 1+ Leg (R) Edema: mild edema Neurologic: alert Skin: normal pigmentation Clive Liang Nov 30, 2016 18:56
--- NOTE | 2016-12-02 14:09 | Discharge Summary ---
Discharge Summary Hospital Course Date of Admission Nov 21, 2016 at 23:59 Date of Discharge Nov 30, 2016 at 13:51 Admitting Diagnosis HPI Kd Franco is a 66 year old male who was admitted on Nov 21, 2016 at 23:59 for Sepsis Hospital Course [id number] Discharge Discharge Disposition Patient was discharged to SNF/Subacute Facility(03) Discharge Diagnoses: Desiree Gao NP Dec 02, 2016 14:09
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
--- NOTE | 2016-12-18 12:12 | Physician Query ---
PLEASE COMPLETE THE DOCUMENT BEFORE SIGNING Dear Dr. Ghotra Date: 12/18/2016 Station Engineer/CDS Name: Kinza Márquez, CCS Exercise your independent professional judgment when responding to query. Question asked do not imply a particular answer is desired/expected Clinical Documentation States: "Sepsis" documented in ..... HPI Kd Franco is a 66 year old male who was admitted on Nov 21, 2016 at 23:59 for Sepsis Clinical Findings Show: BRIEF HOSPITAL COURSE: Dr. Simms was consulted for evaluation of sepsis. Chest x-ray showed bilateral basilar opacities. Rapid flu test was negative. He was pancultured and was started on Levaquin. General variables Dr Berny Rodriguez progress notes mention sepsis:Bronchitis vs Pna - SCx NRF Cxray : Bilateral basilar opacities, likely from parenchymal consolidation or edema cough ( productive ) Negative influenza doubt SBP pt has no Abd pain US : Splenomegaly and ascites, indicating portal hypertension, Negative HIV Diarrhea x 3 , Ro C Diff ( on lactulose ) UCx : VSE.faecalis ( ? signif. low count ) Sepsis SP Leukopenia, afebrile Dr. Bush, Please indicate if sepsis was confirmed as a condition during this admission? [ ] Yes [X ] No [ ] Clinically undeterminable Please also document in your Discharge Summary if sepsis was ruled in, out or clinically undeterminable. Noni Bush 12/18/16 Noni Bush M.D. Date & Time [facility]
== END 2016-11-30 13:51 | DRG 433 ==
LOC: 2E 23:59
DX: K70.31 Alcoholic cirrhosis of liver with ascites (principal); E46 Unspecified protein-calorie malnutrition; D61.818 Other pancytopenia; I95.9 Hypotension, unspecified; D68.4 Acquired coagulation factor deficiency; F03.90 Unspecified dementia, unspecified severity, without behavioral disturbance, psychotic disturbance, mood disturbance, and anxiety; I85.10 Secondary esophageal varices without bleeding; K76.6 Portal hypertension; N39.0 Urinary tract infection, site not specified; Z68.29 Body mass index [BMI] 29.0-29.9, adult; B19.20 Unspecified viral hepatitis C without hepatic coma; K72.90 Hepatic failure, unspecified without coma; I12.9 Hypertensive chronic kidney disease with stage 1 through stage 4 chronic kidney disease, or unspecified chronic kidney disease; R91.8 Other nonspecific abnormal finding of lung field; N18.9 Chronic kidney disease, unspecified; K21.9 Gastro-esophageal reflux disease without esophagitis; K31.7 Polyp of stomach and duodenum; R31.29 Other microscopic hematuria; K44.9 Diaphragmatic hernia without obstruction or gangrene; N40.0 Benign prostatic hyperplasia without lower urinary tract symptoms; N43.3 Hydrocele, unspecified; R19.7 Diarrhea, unspecified; Z91.81 History of falling; D63.8 Anemia in other chronic diseases classified elsewhere; K40.90 Unilateral inguinal hernia, without obstruction or gangrene, not specified as recurrent; F10.10 Alcohol abuse, uncomplicated; F15.90 Other stimulant use, unspecified, uncomplicated
CPT/HCPCS: 36415; 71010; 76700; 80053; 80061; 81001; 82140; 82248; 82270; 82728; 82962; 83036; 83540; 83550; 83605; 84443; 84484; 85007; 85025; 85060; 85610; 85730; 86710; 86850; 86900; 86901; 86920; 87040; 87070; 87081; 87086; 87181; 87205; 87493; 93005; 93306; 93970; 94003; 94150; J3430

== ENCOUNTER 2016-11-30 15:26 | Inpatient (IN) | payer MEDICARE ==
[~2016-11-30] VITALS: Ht 190.5 cm; Wt 107.0 kg
[~2016-11-30 15:26] MED LIST changes: +FLOMAX0.4 MG ORAL; +FUROSEMIDE20 M1 ORAL; +INDERAL10 MG GT; +LACTULOSE20 GM/301 ORAL; +MYLANTA30 M1 ORAL; +PROPRANOLO20 MG/5 M1 PO; +PROTONIX20 MG ORAL; +ROBITUSSIN100 MG/52 ORAL; +SPIRONOLACTONE1 EACH ORAL; +TYLENOL650 MG/20. ORAL
[2016-11-30 15:46] VITALS: BP 95/51
[2016-11-30 18:42] VITALS: BP 110/53
[2016-11-30] MEDS ORDERED: Acetaminophen 500mg (ES) tab ORAL PRN (19:30)
[2016-11-30] MEDS: Mylanta II UD 30ml ORAL SCH (22:00)
[2016-11-30] MEDS: Propranolol 10mg tab ORAL SCH (22:12)
[2016-11-30] MEDS: Tamsulosin 0.4mg cap ORAL SCH (22:12)
[2016-12-01] VITALS: BP 109/60
[2016-12-01] MEDS: guaiFENesin 100mg/5ml Liq ud PO PRN (03:54)
[2016-12-01 04:00] VITALS: BP 103/56
[2016-12-01] MEDS: Mylanta II UD 30ml ORAL SCH ×3 (05:29→22:00)
[2016-12-01] MEDS: Lactulose 20gm/30ml UDC ORAL SCH ×3 (08:00→18:00)
[2016-12-01] MEDS: Propranolol 10mg tab ORAL SCH ×2 (08:01→21:09)
[2016-12-01] MEDS: Spironolactone 50mg tab ORAL SCH (08:01)
[2016-12-01 08:15] VITALS: BP 113/59
--- NOTE | 2016-12-01 09:58 | History & Physical ---
History and Physical History & Physicial dictation complected Noni Bush MD Dec 01, 2016 09:58
--- NOTE | 2016-12-01 11:11 | General Progress Note ---
Assessment/Plan Status: stable Assessment/Plan 1- Hypotension: With no evidence of active acute cardio-vascular disease 2- Liver Cirhosis 3- Panacytopenia 4- chronic anemia 5- high risk for fall with pps 40 Plan: Hospice c/s Snf placement Subjective ROS Limited/Unobtainable: No Constitutional: Reports: malaise HEENT: Reports: no symptoms Cardiovascular: Reports: no symptoms Respiratory: Reports: no symptoms Allergies: Coded Allergies: No Known Allergies (Unverified , 08/21/16) Objective Last 24 Hour Vital Signs Date Time Temp Pulse Resp B/P Pulse Ox O2 Delivery O2 Flow Rate FiO2 12/01/16 08:15 97.5 70 21 113/59 95 Room Air 12/01/16 08:01 61 101/58 12/01/16 04:00 97.5 65 18 103/56 99 Room Air 12/01/16 00:00 97.0 62 18 109/60 98 Room Air 11/30/16 22:12 63 110/53 11/30/16 20:15 97.0 63 16 110/53 100 Room Air 11/30/16 18:42 97.0 63 16 110/53 100 Room Air 11/30/16 15:46 97.0 61 15 95/51 100 Room Air 11/30/16 15:28 97.7 65 16 99/54 100 Room Air Intake and Output 11/30/16 12/01/16 19:00 07:00 Intake Total 360 ml Output Total 400 ml Balance -40 ml Intake Oral 360 ml Output Urine Total 400 ml # Bowel Movements 1 Height (Feet): 6 Height (Inches): 3.00 Weight (Pounds): 236 General Appearance: no apparent distress EENT: PERRL/EOMI Neck: supple Cardiovascular: normal rate Respiratory/Chest: lungs clear Abdomen: distended Extremities: non-tender Edema: 2+ Leg (R), 2+ Pedal (L) Neurologic: oriented x 3 Noni Bush MD Dec 01, 2016 11:11
[2016-12-01 12:13] VITALS: BP 97/55
--- NOTE | 2016-12-01 13:38 | History and Physical Report ---
DATE OF ADMISSION: 11/30/2016 HISTORY OF PRESENT ILLNESS: The patient is a pleasant 66-year-old male. He has been recently admitted secondary to acute gastrointestinal bleeding. He was diagnosed with the upper GI variceal bleeding, status post banding. The patient was discharged to facility; however, with low blood pressure, the patient has returned back to the hospital. REVIEW OF SYSTEMS: Negative for chest pain. Negative for shortness of breath. No abnormal bleeding. No severe pain in the extremities. FAMILY HISTORY: Reviewed and noncontributory. PAST MEDICAL HISTORY: Metabolic encephalopathy, alcohol liver cirrhosis, pancytopenia, anemia, prior blood transfusions, protein malnourishment, no evidence of heart failure, hyponatremia, hepatitis C, abnormal CEA (possibility of underlying malignancy not medically feasible), acute renal failure, substance abuse SOCIAL HISTORY: The patient has 2 sons, needs to be in a fci facility. Originally from [facility]. Denies history of illicit drug abuse and smoking (however the family contradicting history). ALLERGIES: NKDA. PHYSICAL EXAMINATION: VITAL SIGNS: Blood pressure 98/54, temperature 97.7, pulse ox 98% on room air.. HEENT: Head and neck atraumatic, normocephalic. CHEST: Clear to auscultation. HEART: S1 and S2. Regular rate and rhythm. ABDOMEN: Distended. Positive for minimal shifting shifting dullness cannot be excluded. MUSCULOSKELETAL: Positive for 2+ pitting edema of the lower extremities. NEUROLOGIC: The patient is awake, alert, and oriented x3. Neck is what. LABORATORY DATA: New labs are pending. ASSESSMENT AND PLAN: 1. Low blood pressure, at the patient's baseline with no evidence of active infection or active cardiovascular disorder. We will monitor. 2. Chronic anemia. 3. Chronic renal failure. 4. Cytopenia. 5. Alcoholic cirrhosis. 6. Protein-calorie malnourishment. 7. Hepatic encephalopathy. 8. Pulmonary infiltrates with no gross evidence of acute pathology. 9. Gastrointestinal and deep vein thrombosis prophylaxis. PLAN OF CARE: We will monitor the patient's vital signs. At this point of time, the possibility of the hospice management care will be discussed with the patient. Placement by case management. Mohammad Rezvani, M.D. DR: Charlie JOB#: [id number] CC: [facility]
[2016-12-01 16:00] VITALS: BP 98/47
[2016-12-01 20:00] VITALS: BP 96/53
[2016-12-01] MEDS: Tamsulosin 0.4mg cap ORAL SCH (21:09)
--- NOTE | 2016-12-01 21:46 | Emergency Room Report ---
History of Present Illness General Chief Complaint: General Complaint Source: Patient, Family Member, Medical Record Present Illness HPI Patient was dispositioned from the hospital to a nursing facility Approximately 2 hours prior to arrival Patient apparently arrived at the nursing facility and there was a report of a low blood pressure Patient was refused by the nursing facility and transferred back to the hospital Here the patient is awake alert The initial blood pressure taken is at 100 systolic Patient states that he has also not happy with the facility Patient was here recently with UTI and sepsis denies any vomiting denies any diarrhea , Allergies: Coded Allergies: No Known Allergies (Unverified , 08/21/16) Patient History Past Medical History: see triage record Pertinent Family History: none Reviewed Nursing Documentation: PMH: Agreed, PSxH: Agreed Nursing Documentation-PMH Past Medical History: No History, Except For Hx Cardiac Problems: Yes Hx Hypertension: Yes Hx Cancer: No Hx Gastrointestinal Problems: Yes - ascites, Liver disease Hx Neurological Problems: No Review of Systems All Other Systems: negative except mentioned in HPI Physical Exam Vital Signs Date Time Temp Pulse Resp B/P Pulse Ox O2 Delivery O2 Flow Rate FiO2 11/30/16 15:28 97.7 65 16 99/54 100 Room Air Sp02 EP Interpretation: reviewed, normal General Appearance: well appearing, no apparent distress Head: normocephalic, atraumatic Eyes: bilateral eye EOMI, bilateral eye PERRL ENT: hearing grossly normal, normal pharynx, TMs + canals normal, uvula midline Neck: full range of motion, supple, no meningismus, no bony tend Respiratory: lungs clear, normal breath sounds, no rhonchi, no respiratory distress, no retraction, no accessory muscle use Cardiovascular #1: normal peripheral pulses, regular rate, rhythm, no edema, no gallop, no JVD, no murmur Gastrointestinal: normal bowel sounds, non tender, soft, no mass, no organomegaly, non-distended, no guarding, no hernia, no pulsatile mass, no rebound Genitourinary: no CVA tenderness Musculoskeletal: normal inspection Neurologic: oriented x3, responsive, division order technician III-XII nml as tested, motor strength/ tone normal, sensory intact Psychiatric: mood/affect normal Skin: normal color, no rash, warm/dry, palpation normal Lymphatic: normal inspection, no adenopathy Medical Decision Making Diagnostic Impression: Primary Impression: weakness ER Course Given the patient's general exam and evaluation Patient's blood pressure remaining appropriate I did not feel the patient required any further, emergency room intervention patient was admitted for further placement and care Last Vital Signs Date Time Temp Pulse Resp B/P Pulse Ox O2 Delivery O2 Flow Rate FiO2 12/01/16 21:09 64 96/53 12/01/16 20:00 97.9 18 97 Room Air Status: improved Disposition: ADMITTED INPATIENT Condition: Serious Referrals: NOT CHOSEN IPA/,REFERRING (PCP) SHAYY ESTEVES D.O. Dec 01, 2016 21:45
[2016-12-02] VITALS: BP 101/59
[2016-12-02 04:00] VITALS: BP 97/58
[2016-12-02] MEDS: guaiFENesin 100mg/5ml Liq ud PO PRN (06:37)
[2016-12-02] MEDS: Mylanta II UD 30ml ORAL SCH ×3 (06:37→22:00)
[2016-12-02 08:04] VITALS: BP 106/59
[2016-12-02] MEDS: Lactulose 20gm/30ml UDC ORAL SCH ×2 (09:00→18:00)
[2016-12-02] MEDS: Propranolol 10mg tab ORAL SCH ×2 (09:19→20:43)
[2016-12-02] MEDS: Spironolactone 50mg tab ORAL SCH (09:20)
--- NOTE | 2016-12-02 10:44 | General Progress Note ---
Assessment/Plan Status: stable Assessment/Plan 1- Hypotension: With no evidence of active acute cardio-vascular disease 2- Liver Cirhosis 3- Panacytopenia 4- chronic anemia 5- high risk for fall with pps 40 Plan: Hospice c/s Placement in progress. Medically with anticipated life expectancy less than six months. Subjective ROS Limited/Unobtainable: No Allergies: Coded Allergies: No Known Allergies (Unverified , 08/21/16) Objective Last 24 Hour Vital Signs Date Time Temp Pulse Resp B/P Pulse Ox O2 Delivery O2 Flow Rate FiO2 12/02/16 09:19 74 106/59 12/02/16 08:04 97.9 74 21 106/59 97 Room Air 12/02/16 04:00 97.0 68 18 97/58 94 Room Air 12/02/16 00:00 97.3 72 18 101/59 99 Room Air 12/01/16 21:09 64 96/53 12/01/16 20:00 97.9 64 18 96/53 97 Room Air 12/01/16 16:00 98.1 70 18 98/47 95 Room Air 12/01/16 12:13 98.6 69 21 97/55 99 Room Air Intake and Output 12/01/16 12/02/16 19:00 07:00 Intake Total 960 ml 980 ml Output Total 400 ml 625 ml Balance 560 ml 355 ml Intake Oral 960 ml 980 ml Output Urine Total 400 ml 625 ml # Voids 2 1 Height (Feet): 6 Height (Inches): 3.00 Weight (Pounds): 236 General Appearance: no apparent distress EENT: PERRL/EOMI Neck: supple Cardiovascular: normal rate Respiratory/Chest: lungs clear Abdomen: soft Edema: 2+ Leg (R), 2+ Pedal (L), 2+ Pedal (R) Neurologic: oriented x 3 Noni Bush MD Dec 02, 2016 10:44
[2016-12-02 12:02] VITALS: BP 95/70
[2016-12-02 16:00] VITALS: BP 100/55
[2016-12-02 20:00] VITALS: BP 100/57
[2016-12-02] MEDS: Tamsulosin 0.4mg cap ORAL SCH (20:43)
[2016-12-03] MEDS: guaiFENesin 100mg/5ml Liq ud PO PRN (00:07)
[2016-12-03 00:54] VITALS: BP 97/56
[2016-12-03 04:00] VITALS: BP 99/59
[2016-12-03] MEDS: Mylanta II UD 30ml ORAL SCH ×3 (06:36→20:53)
[2016-12-03 07:50] LABS: MEAN CORPUSCULAR HEMOGLOBIN 31.5 PG (27.0-31.0); MEAN CORPUSCULAR HGB CONC 31.1 G/DL (32.0-36.0); MEAN CORPUSCULAR VOLUME 101 FL (80-99); MEAN PLATELET VOLUME 8.7 FL (6.5-10.1); PLATELET COUNT 84 K/UL (150-450); RED BLOOD COUNT 2.76 M/UL (4.70-6.10); RED CELL DISTRIBUTION WIDTH 15.8 % (11.6-14.8); WHITE BLOOD COUNT 4.3 K/UL (4.8-10.8)
[2016-12-03 08:02] VITALS: BP 100/64
[2016-12-03 08:18] LABS: ALANINE AMINOTRANSFERASE 31 U/L (3-41); ALBUMIN/GLOBULIN RATIO 0.3 (1.0-2.7); ANION GAP 9 (5-15); ASPARTATE AMINO TRANSFERASE 78 U/L (5-40); CALCIUM 8.2 mg/dL (8.6-10.2); CARBON DIOXIDE 25 mEQ/L (20-30); CHLORIDE 102 mEQ/L (98-107); GLOMERULAR FILTRATION RATE > 60 mL/min (>60); HEMOLYSIS 5; POTASSIUM 4.8 mEQ/L (3.4-4.9); SODIUM 136 mEQ/L (135-145)
[2016-12-03 08:35] LABS: BILIRUBIN,DIRECT 1.5 mg/dL (0.1-0.3)
[2016-12-03] MEDS: Lactulose 20gm/30ml UDC ORAL SCH ×2 (08:52→17:42)
[2016-12-03] MEDS: Spironolactone 50mg tab ORAL SCH (08:53)
[2016-12-03] MEDS: Propranolol 10mg tab ORAL SCH ×2 (08:54→20:52)
[2016-12-03 09:41] LABS: ANISOCYTOSIS 1+; BAND NEUTROPHILS % (MANUAL) 0 % (0-8); BASOPHILS % (MANUAL) 0 % (0-2); EOSINOPHILS % (MANUAL) 6 % (0-3); HYPOCHROMASIA 1+; LYMPHOCYTES % (MANUAL) 31 % (20-45); MACROCYTES 1+; NEUTROPHILS % (MANUAL) 49 % (45-75); PLATELET ESTIMATE DECREASED; PLATELET MORPHOLOGY NORMAL; TOTAL CELLS COUNTED 100
[2016-12-03 09:42] LABS: SCHISTOCYTES OCCASIONAL
[2016-12-03 11:25] VITALS: BP 100/53
[2016-12-03 16:00] VITALS: BP 94/52
--- NOTE | 2016-12-03 17:01 | General Progress Note ---
Assessment/Plan Status: stable Assessment/Plan 1. Low blood pressure, at the patient's baseline with no evidence of active infection or active cardiovascular disorder. We will monitor. 2. Chronic anemia. 3. Chronic renal failure. 4. Cytopenia. 5. Alcoholic cirrhosis. 6. Protein-calorie malnourishment. 7. Hepatic encephalopathy. 8. Pulmonary infiltrates with no gross evidence of acute pathology. 9. Gastrointestinal and deep vein thrombosis prophylaxis. Plan: Hospice c/s Placement in progress. Medically with anticipated life expectancy less than six months. Dc with hospice care, pending to placement Subjective Allergies: Coded Allergies: No Known Allergies (Unverified , 08/21/16) Objective Last 24 Hour Vital Signs Date Time Temp Pulse Resp B/P Pulse Ox O2 Delivery O2 Flow Rate FiO2 12/03/16 16:00 97.7 80 20 94/52 96 Room Air 12/03/16 11:25 98.0 64 19 100/53 97 Room Air 12/03/16 08:54 64 100/64 12/03/16 08:02 98.2 64 19 100/64 98 Room Air 12/03/16 04:00 98.2 63 21 99/59 93 Room Air 12/03/16 00:54 98.1 63 22 97/56 96 Room Air 12/02/16 20:43 62 100/55 12/02/16 20:00 98.2 63 17 100/57 96 Room Air Intake and Output 12/02/16 12/03/16 19:00 07:00 Intake Total 480 ml 360 ml Output Total 300 ml 300 ml Balance 180 ml 60 ml Intake Oral 480 ml 360 ml Output Urine Total 300 ml 300 ml # Voids 1 Laboratory Tests 12/03/16 07:30: White Blood Count 4.3L, Red Blood Count 2.76L, Hemoglobin 8.7L, Hematocrit 28.0L , Mean Corpuscular Volume 101H, Mean Corpuscular Hemoglobin 31.5H, Mean Corpuscular Hemoglobin Concent 31.1L, Red Cell Distribution Width 15.8H, Platelet Count 84L, Mean Platelet Volume 8.7, Neutrophils (%) (Auto) , Lymphocytes (%) (Auto) , Monocytes (%) (Auto) , Eosinophils (%) (Auto) , Basophils (%) (Auto) , Differential Total Cells Counted 100, Neutrophils % ( Manual) 49, Lymphocytes % (Manual) 31, Monocytes % (Manual) 14H, Eosinophils % ( Manual) 6H, Basophils % (Manual) 0, Band Neutrophils 0, Platelet Estimate DecreasedL, Platelet Morphology Normal, Hypochromasia 1+, Anisocytosis 1+, Macrocytosis 1+, Schistocytes Occasional 12/03/16 07:35: Sodium Level 136, Potassium Level 4.8, Chloride Level 102, Carbon Dioxide Level 25, Anion Gap 9, Blood Urea Nitrogen 15, Creatinine 1.0, Estimat Glomerular Filtration Rate > 60, Glucose Level 111H, Calcium Level 8.2L, Total Bilirubin 3.1H, Direct Bilirubin 1.5H, Aspartate Amino Transf (AST/SGOT) 78H, Alanine Aminotransferase (ALT/SGPT) 31, Alkaline Phosphatase 55, Total Protein 7.0, Albumin 1.8L, Globulin 5.2, Albumin/Globulin Ratio 0.3L Height (Feet): 6 Height (Inches): 3.00 Weight (Pounds): 236 Noni Bush MD Dec 03, 2016 17:01
[2016-12-03 19:00] VITALS: BP 97/55
[2016-12-03] MEDS: Tamsulosin 0.4mg cap ORAL SCH (20:51)
[2016-12-04] VITALS: BP 106/62
[2016-12-04 04:00] VITALS: BP 100/49
[2016-12-04] MEDS: guaiFENesin 100mg/5ml Liq ud PO PRN (04:25)
[2016-12-04] MEDS: Mylanta II UD 30ml ORAL SCH ×3 (06:03→22:00)
[2016-12-04 07:46] LABS: MEAN CORPUSCULAR HEMOGLOBIN 32.1 PG (27.0-31.0); MEAN CORPUSCULAR HGB CONC 31.8 G/DL (32.0-36.0); MEAN CORPUSCULAR VOLUME 101 FL (80-99); MEAN PLATELET VOLUME 7.8 FL (6.5-10.1); PLATELET COUNT 76 K/UL (150-450); RED BLOOD COUNT 2.57 M/UL (4.70-6.10); RED CELL DISTRIBUTION WIDTH 15.5 % (11.6-14.8); WHITE BLOOD COUNT 4.5 K/UL (4.8-10.8)
[2016-12-04 08:17] VITALS: BP 100/49
[2016-12-04 08:17] LABS: ALANINE AMINOTRANSFERASE 31 U/L (3-41); ALBUMIN/GLOBULIN RATIO 0.3 (1.0-2.7); ANION GAP 7 (5-15); ASPARTATE AMINO TRANSFERASE 78 U/L (5-40); CALCIUM 8.3 mg/dL (8.6-10.2); CARBON DIOXIDE 26 mEQ/L (20-30); CHLORIDE 105 mEQ/L (98-107); CREATININE 0.9 mg/dL (0.7-1.2); GLOMERULAR FILTRATION RATE > 60 mL/min (>60); HEMOLYSIS 0; POTASSIUM 4.8 mEQ/L (3.4-4.9); SODIUM 138 mEQ/L (135-145); TOTAL PROTEIN 6.6 g/dL (6.6-8.7)
[2016-12-04 08:31] LABS: BILIRUBIN,DIRECT 1.3 mg/dL (0.1-0.3)
[2016-12-04] MEDS: Spironolactone 50mg tab ORAL SCH (08:55)
[2016-12-04] MEDS: Lactulose 20gm/30ml UDC ORAL SCH ×2 (08:55→18:00)
[2016-12-04] MEDS: Propranolol 10mg tab ORAL SCH ×2 (08:55→20:34)
[2016-12-04 10:14] LABS: ANISOCYTOSIS 1+; BAND NEUTROPHILS % (MANUAL) 0 % (0-8); BASOPHILS % (MANUAL) 0 % (0-2); EOSINOPHILS % (MANUAL) 7 % (0-3); LYMPHOCYTES % (MANUAL) 32 % (20-45); MACROCYTES 1+; NEUTROPHILS % (MANUAL) 46 % (45-75); PLATELET ESTIMATE DECREASED; PLATELET MORPHOLOGY NORMAL; TOTAL CELLS COUNTED 100
[2016-12-04 10:15] LABS: HYPOCHROMASIA 1+
[2016-12-04 10:16] LABS: SCHISTOCYTES OCCASIONAL
[2016-12-04 11:52] VITALS: BP 100/53
--- NOTE | 2016-12-04 13:15 | General Progress Note ---
Assessment/Plan Status: stable Assessment/Plan 1. Low blood pressure, at the patient's baseline with no evidence of active infection or active cardiovascular disorder. We will monitor. 2. Chronic anemia. 3. Chronic renal failure. 4. Cytopenia. 5. Alcoholic cirrhosis. 6. Protein-calorie malnourishment. 7. Hepatic encephalopathy. 8. Pulmonary infiltrates with no gross evidence of acute pathology. 9. Gastrointestinal and deep vein thrombosis prophylaxis. Plan: Hospice c/s Placement in progress. Medically with anticipated life expectancy less than six months. Dc with hospice care, pending to placement Subjective ROS Limited/Unobtainable: No Constitutional: Reports: no symptoms HEENT: Reports: no symptoms Cardiovascular: Reports: no symptoms Respiratory: Reports: no symptoms Gastrointestinal/Abdominal: Reports: no symptoms Allergies: Coded Allergies: No Known Allergies (Unverified , 08/21/16) Objective Last 24 Hour Vital Signs Date Time Temp Pulse Resp B/P Pulse Ox O2 Delivery O2 Flow Rate FiO2 12/04/16 11:52 98.4 66 21 100/53 97 Room Air 12/04/16 08:55 68 100/49 12/04/16 08:17 98.6 68 23 100/49 99 Room Air 12/04/16 04:00 98.1 65 20 100/49 94 Room Air 12/04/16 00:00 98.1 62 20 106/62 95 Room Air 12/03/16 20:52 66 97/65 12/03/16 19:00 98.1 66 20 97/55 97 Room Air 12/03/16 16:00 97.7 80 20 94/52 96 Room Air Intake and Output 12/03/16 12/04/16 19:00 07:00 Intake Total 450 ml 240 ml Output Total 300 ml 600 ml Balance 150 ml -360 ml Intake Oral 450 ml 240 ml Output Urine Total 300 ml 600 ml # Voids 4 # Bowel Movements 4 Laboratory Tests 12/04/16 04:50: White Blood Count 4.5L, Red Blood Count 2.57L, Hemoglobin 8.2L, Hematocrit 25.9L , Mean Corpuscular Volume 101H, Mean Corpuscular Hemoglobin 32.1H, Mean Corpuscular Hemoglobin Concent 31.8L, Red Cell Distribution Width 15.5H, Platelet Count 76L, Mean Platelet Volume 7.8, Neutrophils (%) (Auto) , Lymphocytes (%) (Auto) , Monocytes (%) (Auto) , Eosinophils (%) (Auto) , Basophils (%) (Auto) , Differential Total Cells Counted 100, Neutrophils % ( Manual) 46, Lymphocytes % (Manual) 32, Monocytes % (Manual) 15H, Eosinophils % ( Manual) 7H, Basophils % (Manual) 0, Band Neutrophils 0, Platelet Estimate DecreasedL, Platelet Morphology Normal, Hypochromasia 1+, Anisocytosis 1+, Macrocytosis 1+, Schistocytes Occasional, Sodium Level 138, Potassium Level 4.8 , Chloride Level 105, Carbon Dioxide Level 26, Anion Gap 7, Blood Urea Nitrogen 16, Creatinine 0.9, Estimat Glomerular Filtration Rate > 60, Glucose Level 89, Calcium Level 8.3L, Total Bilirubin 2.9H, Direct Bilirubin 1.3H, Aspartate Amino Transf (AST/SGOT) 78H, Alanine Aminotransferase (ALT/SGPT) 31, Alkaline Phosphatase 53, Total Protein 6.6, Albumin 1.6L, Globulin 5.0, Albumin/Globulin Ratio 0.3L Height (Feet): 6 Height (Inches): 3.00 Weight (Pounds): 236 General Appearance: no apparent distress EENT: PERRL/EOMI Neck: supple Cardiovascular: normal rate Respiratory/Chest: lungs clear Abdomen: soft, distended, other - at base line Edema: 2+ Leg (R), 2+ Pedal (L), 2+ Pedal (R) Neurologic: oriented x 3 Noni Bush MD Dec 04, 2016 13:15
[2016-12-04 16:00] VITALS: BP 94/49
[2016-12-04 19:00] VITALS: BP 104/55
[2016-12-04] MEDS: Tamsulosin 0.4mg cap ORAL SCH (20:33)
[2016-12-05] VITALS: BP 115/59
[2016-12-05 04:00] VITALS: BP 101/54
[2016-12-05] MEDS: guaiFENesin 100mg/5ml Liq ud PO PRN (04:23)
[2016-12-05] MEDS: Mylanta II UD 30ml ORAL SCH ×3 (05:36→22:00)
[2016-12-05 07:17] LABS: MEAN CORPUSCULAR HEMOGLOBIN 31.9 PG (27.0-31.0); MEAN CORPUSCULAR HGB CONC 32.2 G/DL (32.0-36.0); MEAN CORPUSCULAR VOLUME 99 FL (80-99); MEAN PLATELET VOLUME 9.1 FL (6.5-10.1); PLATELET COUNT 85 K/UL (150-450); RED BLOOD COUNT 2.63 M/UL (4.70-6.10); RED CELL DISTRIBUTION WIDTH 15.3 % (11.6-14.8)
[2016-12-05 07:42] LABS: ALANINE AMINOTRANSFERASE 32 U/L (3-41); ALBUMIN/GLOBULIN RATIO 0.3 (1.0-2.7); ANION GAP 9 (5-15); ASPARTATE AMINO TRANSFERASE 78 U/L (5-40); CALCIUM 8.2 mg/dL (8.6-10.2); CARBON DIOXIDE 25 mEQ/L (20-30); CHLORIDE 102 mEQ/L (98-107); CREATININE 0.8 mg/dL (0.7-1.2); GLOMERULAR FILTRATION RATE > 60 mL/min (>60); HEMOLYSIS 2; POTASSIUM 4.5 mEQ/L (3.4-4.9); SODIUM 136 mEQ/L (135-145); TOTAL PROTEIN 6.4 g/dL (6.6-8.7)
[2016-12-05 08:00] LABS: BILIRUBIN,DIRECT 1.4 mg/dL (0.1-0.3)
[2016-12-05 08:12] VITALS: BP 109/55
[2016-12-05] MEDS: Lactulose 20gm/30ml UDC ORAL SCH ×3 (09:00→18:00)
[2016-12-05] MEDS: Propranolol 10mg tab ORAL SCH ×2 (09:14→20:38)
[2016-12-05] MEDS: Spironolactone 50mg tab ORAL SCH (09:14)
[2016-12-05 10:50] LABS: BASOPHILS % (MANUAL) 2 % (0-2); EOSINOPHILS % (MANUAL) 7 % (0-3); LYMPHOCYTES % (MANUAL) 38 % (20-45); NEUTROPHILS % (MANUAL) 39 % (45-75); TOTAL CELLS COUNTED 100
[2016-12-05 10:51] LABS: ANISOCYTOSIS 1+; BAND NEUTROPHILS % (MANUAL) 0 % (0-8); HYPOCHROMASIA 3+; PLATELET ESTIMATE DECREASED; PLATELET MORPHOLOGY NORMAL
--- NOTE | 2016-12-05 11:45 | General Progress Note ---
Assessment/Plan Status: stable Assessment/Plan 1. Low blood pressure, at the patient's baseline with no evidence of active infection or active cardiovascular disorder. We will monitor. 2. Chronic anemia. 3. Chronic renal failure. 4. Cytopenia. 5. Alcoholic cirrhosis. 6. Protein-calorie malnourishment. 7. Hepatic encephalopathy. 8. Pulmonary infiltrates with no gross evidence of acute pathology. 9. Gastrointestinal and deep vein thrombosis prophylaxis. Plan: Hospice c/s Placement in progress. Medically with anticipated life expectancy less than six months. Dc with hospice care, pending to placement Subjective ROS Limited/Unobtainable: No Constitutional: Reports: malaise HEENT: Reports: no symptoms Cardiovascular: Reports: no symptoms Gastrointestinal/Abdominal: Reports: no symptoms Allergies: Coded Allergies: No Known Allergies (Unverified , 08/21/16) Objective Last 24 Hour Vital Signs Date Time Temp Pulse Resp B/P Pulse Ox O2 Delivery O2 Flow Rate FiO2 12/05/16 09:14 68 109/55 12/05/16 08:12 97.7 68 20 109/55 97 Room Air 12/05/16 04:00 97.9 65 17 101/54 94 Room Air 12/05/16 00:00 98.2 63 17 115/59 96 12/04/16 20:34 71 94/49 12/04/16 19:00 97.7 63 20 104/55 98 Room Air 12/04/16 16:00 97.7 71 20 94/49 96 12/04/16 11:52 98.4 66 21 100/53 97 Room Air Intake and Output 12/04/16 12/05/16 19:00 07:00 Intake Total 480 ml 240 ml Balance 480 ml 240 ml Intake Oral 480 ml 240 ml # Voids 6 # Bowel Movements 1 4 Laboratory Tests 12/05/16 06:37: White Blood Count 5.0, Red Blood Count 2.63L, Hemoglobin 8.4L, Hematocrit 26.0L , Mean Corpuscular Volume 99, Mean Corpuscular Hemoglobin 31.9H, Mean Corpuscular Hemoglobin Concent 32.2, Red Cell Distribution Width 15.3H, Platelet Count 85L, Mean Platelet Volume 9.1, Neutrophils (%) (Auto) , Lymphocytes (%) (Auto) , Monocytes (%) (Auto) , Eosinophils (%) (Auto) , Basophils (%) (Auto) , Differential Total Cells Counted 100, Neutrophils % ( Manual) 39L, Lymphocytes % (Manual) 38, Monocytes % (Manual) 14H, Eosinophils % (Manual) 7H, Basophils % (Manual) 2, Band Neutrophils 0, Platelet Estimate DecreasedL, Platelet Morphology Normal, Hypochromasia 3+, Anisocytosis 1+, Sodium Level 136, Potassium Level 4.5, Chloride Level 102, Carbon Dioxide Level 25, Anion Gap 9, Blood Urea Nitrogen 15, Creatinine 0.8, Estimat Glomerular Filtration Rate > 60, Glucose Level 95, Calcium Level 8.2L, Total Bilirubin 3.1H , Direct Bilirubin 1.4H, Aspartate Amino Transf (AST/SGOT) 78H, Alanine Aminotransferase (ALT/SGPT) 32, Alkaline Phosphatase 50, Total Protein 6.4L, Albumin 1.7L, Globulin 4.7, Albumin/Globulin Ratio 0.3L Height (Feet): 6 Height (Inches): 3.00 Weight (Pounds): 236 General Appearance: no apparent distress EENT: PERRL/EOMI Neck: supple Cardiovascular: normal rate Respiratory/Chest: lungs clear Abdomen: other - distended. possible shifting dullness. no change in the interim Edema: 2+ Leg (R), 2+ Pedal (L), 2+ Pedal (R) Neurologic: oriented x 3 Noni Bush MD Dec 05, 2016 11:45
[2016-12-05 11:46] VITALS: BP 107/52
--- NOTE | 2016-12-05 14:07 | Wound Nurse Progress Note ---
Wound RN Progress Note Wound Consult skin assessed intact, no redness noted to sacral area. NATHALIA BAHENA Dec 05, 2016 14:07
[2016-12-05 16:00] VITALS: BP 108/58
[2016-12-05 20:00] VITALS: BP 113/58
[2016-12-05] MEDS: Tamsulosin 0.4mg cap ORAL SCH (20:37)
[2016-12-06] VITALS: BP 102/57
[2016-12-06] MEDS: guaiFENesin 100mg/5ml Liq ud PO PRN ×2 (00:35→04:50)
[2016-12-06 04:00] VITALS: BP 113/59
[2016-12-06] MEDS: Mylanta II UD 30ml ORAL SCH ×3 (05:07→21:05)
[2016-12-06 07:50] VITALS: BP 116/62
[2016-12-06] MEDS: Spironolactone 50mg tab ORAL SCH (08:25)
[2016-12-06] MEDS: Lactulose 20gm/30ml UDC ORAL SCH ×2 (08:25→17:14)
[2016-12-06] MEDS: Propranolol 10mg tab ORAL SCH ×2 (08:25→20:44)
--- NOTE | 2016-12-06 11:06 | General Progress Note ---
Assessment/Plan Status: stable Assessment/Plan 1. Low blood pressure, at the patient's baseline with no evidence of active infection or active cardiovascular disorder. We will monitor. 2. Chronic anemia. 3. Chronic renal failure. 4. Cytopenia. 5. Alcoholic cirrhosis. 6. Protein-calorie malnourishment. 7. Hepatic encephalopathy. 8. Pulmonary infiltrates with no gross evidence of acute pathology. 9. Gastrointestinal and deep vein thrombosis prophylaxis. Plan: Hospice c/s Placement in progress. Medically with anticipated life expectancy less than six months. Dc with hospice care, pending to placement Subjective ROS Limited/Unobtainable: No HEENT: Reports: no symptoms Cardiovascular: Reports: no symptoms Allergies: Coded Allergies: No Known Allergies (Unverified , 08/21/16) Objective Last 24 Hour Vital Signs Date Time Temp Pulse Resp B/P Pulse Ox O2 Delivery O2 Flow Rate FiO2 12/06/16 08:25 86 116/62 12/06/16 07:50 97.7 86 21 116/62 97 Room Air 12/06/16 04:00 98.1 75 20 113/59 97 Room Air 12/06/16 00:00 97.9 66 20 102/57 98 Room Air 12/05/16 20:38 63 113/58 12/05/16 20:00 98.1 63 17 113/58 98 Room Air 12/05/16 20:00 98.1 63 17 113/58 98 Room Air 12/05/16 16:00 97.9 67 17 108/58 96 Room Air 12/05/16 11:46 98.0 66 21 107/52 97 Room Air Intake and Output 12/05/16 12/06/16 19:00 07:00 Intake Total 480 ml 520 ml Output Total 600 ml 200 ml Balance -120 ml 320 ml Intake Oral 480 ml 520 ml Output Urine Total 600 ml 200 ml # Voids 3 5 # Bowel Movements 1 2 Height (Feet): 6 Height (Inches): 3.00 Weight (Pounds): 236 General Appearance: no apparent distress EENT: PERRL/EOMI Neck: supple Cardiovascular: normal rate Respiratory/Chest: lungs clear Abdomen: soft, distended Extremities: non-tender Edema: 2+ Leg (R), 2+ Pedal (L), 2+ Pedal (R) Neurologic: oriented x 3 Noni Bush MD Dec 06, 2016 11:06
[2016-12-06 11:37] VITALS: BP 97/49
[2016-12-06 16:00] VITALS: BP 103/56
[2016-12-06] MEDS ORDERED: Sterile Water Irrig 1000ml IRRIG ONE (16:01)
[2016-12-06] MEDS ORDERED: NS 550ML IV ONE (16:01)
[2016-12-06] MEDS ORDERED: Tubing IV Secondary IV ONE (16:01)
[2016-12-06 19:00] VITALS: BP 99/54
[2016-12-06] MEDS: Tamsulosin 0.4mg cap ORAL SCH (20:45)
[2016-12-07] VITALS: BP 94/54
[2016-12-07 04:00] VITALS: BP 100/53
[2016-12-07] MEDS: guaiFENesin 100mg/5ml Liq ud PO PRN (04:05)
[2016-12-07] MEDS: Mylanta II UD 30ml ORAL SCH ×3 (05:41→20:41)
[2016-12-07] MEDS: Lactulose 20gm/30ml UDC ORAL SCH ×2 (07:54→17:12)
[2016-12-07] MEDS: Spironolactone 50mg tab ORAL SCH (07:57)
[2016-12-07] MEDS: Propranolol 10mg tab ORAL SCH ×2 (07:57→20:33)
[2016-12-07 08:03] VITALS: BP 105/58
[2016-12-07 12:03] VITALS: BP 99/56
[2016-12-07 16:00] VITALS: BP 90/49
[2016-12-07 20:00] VITALS: BP 99/56
[2016-12-07] MEDS: Tamsulosin 0.4mg cap ORAL SCH (20:41)
[2016-12-08] VITALS: BP 97/53
[2016-12-08] MEDS: guaiFENesin 100mg/5ml Liq ud PO PRN (00:24)
[2016-12-08 04:00] VITALS: BP 97/54
[2016-12-08] MEDS: Mylanta II UD 30ml ORAL SCH ×4 (06:03→23:04)
[2016-12-08 08:18] VITALS: BP 108/59
[2016-12-08] MEDS: Propranolol 10mg tab ORAL SCH ×2 (08:20→20:22)
[2016-12-08] MEDS: Lactulose 20gm/30ml UDC ORAL SCH ×2 (08:21→17:08)
[2016-12-08] MEDS: Spironolactone 50mg tab ORAL SCH (08:21)
[2016-12-08 12:38] VITALS: BP 104/60
[2016-12-08 16:00] VITALS: BP 107/58
--- NOTE | 2016-12-08 16:03 | General Progress Note ---
Assessment/Plan Status: stable Assessment/Plan 1. Low blood pressure, at the patient's baseline with no evidence of active infection or active cardiovascular disorder. We will monitor. 2. Chronic anemia. 3. Chronic renal failure. 4. Cytopenia. 5. Alcoholic cirrhosis. 6. Protein-calorie malnourishment. 7. Hepatic encephalopathy. 8. Pulmonary infiltrates with no gross evidence of acute pathology. 9. Gastrointestinal and deep vein thrombosis prophylaxis. Plan: Hospice c/s Placement in progress. Medically with anticipated life expectancy less than six months. Dc with hospice care, pending to placement Subjective ROS Limited/Unobtainable: No HEENT: Reports: no symptoms Cardiovascular: Reports: no symptoms Respiratory: Reports: no symptoms Allergies: Coded Allergies: No Known Allergies (Unverified , 08/21/16) Objective Last 24 Hour Vital Signs Date Time Temp Pulse Resp B/P Pulse Ox O2 Delivery O2 Flow Rate FiO2 12/08/16 12:38 98.2 65 19 104/60 94 Room Air 12/08/16 08:20 69 108/59 12/08/16 08:18 98.1 69 19 108/59 93 Room Air 12/08/16 04:00 97.7 67 20 97/54 93 Room Air 12/08/16 00:00 98.1 63 20 97/53 98 Room Air 12/07/16 20:33 61 99/56 12/07/16 20:00 97.9 61 16 99/56 97 Room Air Intake and Output 12/07/16 12/08/16 19:00 07:00 Intake Total 450 ml 380 ml Output Total 400 ml 550 ml Balance 50 ml -170 ml Intake Oral 450 ml 380 ml Output Urine Total 400 ml 550 ml # Voids 2 # Bowel Movements 1 1 Height (Feet): 6 Height (Inches): 3.00 Weight (Pounds): 236 General Appearance: alert EENT: PERRL/EOMI Neck: supple Cardiovascular: normal rate Respiratory/Chest: lungs clear Abdomen: soft, distended Edema: 2+ Leg (R), 2+ Pedal (L), 2+ Pedal (R) Neurologic: manager float II-XII grossly normal Noni Bush MD Dec 08, 2016 16:03
[2016-12-08] MEDS ORDERED: DiphenhydrAMINE & Zinc 28g Cream TOPIC PRN (18:30)
[2016-12-08 19:00] VITALS: BP 96/50
[2016-12-08] MEDS: Tamsulosin 0.4mg cap ORAL SCH (21:34)
[2016-12-09] VITALS: BP 111/63
[2016-12-09] MEDS: guaiFENesin 100mg/5ml Liq ud PO PRN (01:51)
[2016-12-09 04:00] VITALS: BP 103/54
[2016-12-09] MEDS: Mylanta II UD 30ml ORAL SCH ×3 (05:34→21:30)
[2016-12-09 08:00] VITALS: BP 103/57
[2016-12-09] MEDS: Spironolactone 50mg tab ORAL SCH (08:31)
[2016-12-09] MEDS: Propranolol 10mg tab ORAL SCH ×2 (08:31→21:00)
[2016-12-09] MEDS: Lactulose 20gm/30ml UDC ORAL SCH ×2 (08:31→18:00)
--- NOTE | 2016-12-09 09:01 | General Progress Note ---
Assessment/Plan Status: stable Assessment/Plan 1. Low blood pressure, at the patient's baseline with no evidence of active infection or active cardiovascular disorder. We will monitor. 2. Chronic anemia. 3. Chronic renal failure. 4. Cytopenia. 5. Alcoholic cirrhosis. 6. Protein-calorie malnourishment. 7. Hepatic encephalopathy. 8. Pulmonary infiltrates with no gross evidence of acute pathology. 9. Gastrointestinal and deep vein thrombosis prophylaxis. Plan: Hospice c/s Placement in progress. Medically with anticipated life expectancy less than six months. Dc with hospice care, pending to placement Subjective ROS Limited/Unobtainable: No Constitutional: Reports: malaise HEENT: Reports: no symptoms Respiratory: Reports: no symptoms Allergies: Coded Allergies: No Known Allergies (Unverified , 08/21/16) Objective Last 24 Hour Vital Signs Date Time Temp Pulse Resp B/P Pulse Ox O2 Delivery O2 Flow Rate FiO2 12/09/16 08:31 63 103/54 12/09/16 08:00 97.9 65 18 103/57 94 Room Air 12/09/16 04:00 97.7 63 20 103/54 95 Room Air 12/09/16 00:00 97.7 66 20 111/63 97 Room Air 12/08/16 20:22 62 95/54 12/08/16 19:00 98.1 62 20 96/50 99 Room Air 12/08/16 16:00 97.7 62 20 107/58 97 Room Air 12/08/16 12:38 98.2 65 19 104/60 94 Room Air Intake and Output 12/08/16 12/09/16 19:00 07:00 Intake Total 450 ml 590 ml Output Total 850 ml Balance -400 ml 590 ml Intake Oral 450 ml 590 ml Output Urine Total 850 ml # Voids 5 # Bowel Movements 1 5 Height (Feet): 6 Height (Inches): 3.00 Weight (Pounds): 236 General Appearance: no apparent distress EENT: PERRL/EOMI Neck: supple Cardiovascular: normal rate Respiratory/Chest: lungs clear Abdomen: soft Extremities: non-tender Neurologic: foam tank laminator II-XII grossly normal, oriented x 3 Noni Bush MD Dec 09, 2016 09:01
[2016-12-09 12:00] VITALS: BP 103/58
[2016-12-09 16:00] VITALS: BP 90/52
[2016-12-09 17:25] LABS: MEAN CORPUSCULAR HEMOGLOBIN 32.6 PG (27.0-31.0); MEAN CORPUSCULAR HGB CONC 32.3 G/DL (32.0-36.0); MEAN CORPUSCULAR VOLUME 101 FL (80-99); MEAN PLATELET VOLUME 7.1 FL (6.5-10.1); PLATELET COUNT 75 K/UL (150-450); RED BLOOD COUNT 2.45 M/UL (4.70-6.10); RED CELL DISTRIBUTION WIDTH 15.2 % (11.6-14.8)
[2016-12-09 18:15] LABS: BAND NEUTROPHILS % (MANUAL) 2 % (0-8); BASOPHILS % (MANUAL) 1 % (0-2); EOSINOPHILS % (MANUAL) 2 % (0-3); LYMPHOCYTES % (MANUAL) 19 % (20-45); NEUTROPHILS % (MANUAL) 73 % (45-75); NUCLEATED RED BLOOD CELLS 5 /100 WBC; TOTAL CELLS COUNTED 100
[2016-12-09 18:16] LABS: ANISOCYTOSIS 1+; MACROCYTES 1+; PLATELET ESTIMATE DECREASED; PLATELET MORPHOLOGY NORMAL
[2016-12-09 20:00] VITALS: BP 101/62
[2016-12-09] MEDS: Tamsulosin 0.4mg cap ORAL SCH (21:30)
[2016-12-10] VITALS: BP 113/63
[2016-12-10 04:00] VITALS: BP 97/58
[2016-12-10] MEDS: Mylanta II UD 30ml ORAL SCH ×3 (06:13→21:50)
[2016-12-10 07:21] VITALS: BP 100/53
[2016-12-10] MEDS: Spironolactone 50mg tab ORAL SCH (08:47)
[2016-12-10] MEDS: Propranolol 10mg tab ORAL SCH ×2 (08:47→21:00)
[2016-12-10] MEDS: Lactulose 20gm/30ml UDC ORAL SCH ×2 (08:47→17:53)
[2016-12-10] MEDS: guaiFENesin 100mg/5ml Liq ud PO PRN (08:50)
--- NOTE | 2016-12-10 11:44 | General Progress Note ---
Assessment/Plan Status: stable Assessment/Plan 1. Low blood pressure, at the patient's baseline with no evidence of active infection or active cardiovascular disorder. We will monitor. 2. Chronic anemia. 3. Chronic renal failure. 4. Cytopenia. 5. Alcoholic cirrhosis. 6. Protein-calorie malnourishment. 7. Hepatic encephalopathy. 8. Pulmonary infiltrates with no gross evidence of acute pathology. 9. Gastrointestinal and deep vein thrombosis prophylaxis. Plan: Hospice c/s Placement in progress. Medically with anticipated life expectancy less than six months. Dc with hospice care, pending to placement Subjective ROS Limited/Unobtainable: No Constitutional: Reports: no symptoms HEENT: Reports: no symptoms Cardiovascular: Reports: no symptoms Allergies: Coded Allergies: No Known Allergies (Unverified , 08/21/16) Objective Last 24 Hour Vital Signs Date Time Temp Pulse Resp B/P Pulse Ox O2 Delivery O2 Flow Rate FiO2 12/10/16 08:47 67 100/53 12/10/16 07:21 98.4 67 15 100/53 93 Room Air 12/10/16 04:00 97.7 66 20 97/58 92 Room Air 12/10/16 00:00 98.1 61 20 113/63 97 Room Air 12/09/16 21:00 69 101/62 12/09/16 20:00 98.0 69 16 101/62 100 Room Air 12/09/16 16:00 98.2 66 16 90/52 95 Room Air 12/09/16 12:00 97.9 65 18 103/58 94 Room Air Intake and Output 12/09/16 12/10/16 19:00 07:00 Intake Total 620 ml 710 ml Output Total 800 ml Balance 620 ml -90 ml Intake Oral 620 ml 710 ml Output Urine Total 800 ml # Voids 2 3 # Bowel Movements 2 Laboratory Tests 12/09/16 16:50: White Blood Count 5.0, Red Blood Count 2.45L, Hemoglobin 8.0L, Hematocrit 24.7L , Mean Corpuscular Volume 101H, Mean Corpuscular Hemoglobin 32.6H, Mean Corpuscular Hemoglobin Concent 32.3, Red Cell Distribution Width 15.2H, Platelet Count 75L, Mean Platelet Volume 7.1, Neutrophils (%) (Auto) , Lymphocytes (%) (Auto) , Monocytes (%) (Auto) , Eosinophils (%) (Auto) , Basophils (%) (Auto) , Differential Total Cells Counted 100, Neutrophils % ( Manual) 73, Lymphocytes % (Manual) 19L, Monocytes % (Manual) 3, Eosinophils % ( Manual) 2, Basophils % (Manual) 1, Band Neutrophils 2, Nucleated Red Blood Cells 5, Platelet Estimate DecreasedL, Platelet Morphology Normal, Anisocytosis 1+, Macrocytosis 1+ Height (Feet): 6 Height (Inches): 3.00 Weight (Pounds): 236 General Appearance: no apparent distress EENT: PERRL/EOMI Neck: supple Cardiovascular: normal rate Respiratory/Chest: lungs clear Abdomen: soft, distended Edema: 3+ Leg (R), 3+ Pedal (L), 3+ Pedal (R) Neurologic: oriented x 3 Noni Bush MD Dec 10, 2016 11:44
[2016-12-10 12:24] VITALS: BP 115/55
[2016-12-10 16:37] VITALS: BP 97/56
[2016-12-10 20:00] VITALS: BP 96/56
[2016-12-10] MEDS: Tamsulosin 0.4mg cap ORAL SCH (21:50)
[2016-12-10] MEDS ORDERED: Prep H Ointment 57gm RECTAL PRN (22:00)
[2016-12-11] VITALS: BP 101/56
[2016-12-11 04:00] VITALS: BP 95/52
[2016-12-11] MEDS: Mylanta II UD 30ml ORAL SCH ×3 (06:32→21:11)
[2016-12-11 07:13] VITALS: BP 100/41
[2016-12-11] MEDS: Propranolol 10mg tab ORAL SCH ×2 (08:12→21:11)
[2016-12-11] MEDS: Lactulose 20gm/30ml UDC ORAL SCH ×2 (08:12→17:56)
[2016-12-11] MEDS: Spironolactone 50mg tab ORAL SCH (08:12)
[2016-12-11 11:33] VITALS: BP 94/50
[2016-12-11 16:00] VITALS: BP 145/90
[2016-12-11 19:00] VITALS: BP 145/88
[2016-12-11] MEDS: Tamsulosin 0.4mg cap ORAL SCH (21:11)
--- NOTE | 2016-12-11 21:40 | General Progress Note ---
Assessment/Plan Status: stable Assessment/Plan 1. Low blood pressure, at the patient's baseline with no evidence of active infection or active cardiovascular disorder. We will monitor. 2. Chronic anemia. 3. Chronic renal failure. 4. Cytopenia. 5. Alcoholic cirrhosis. 6. Protein-calorie malnourishment. 7. Hepatic encephalopathy. 8. Pulmonary infiltrates with no gross evidence of acute pathology. 9. Gastrointestinal and deep vein thrombosis prophylaxis. Plan: Hospice c/s Placement in progress. Medically with anticipated life expectancy less than six months. Dc with hospice care, pending to placement Subjective ROS Limited/Unobtainable: No Constitutional: Reports: malaise HEENT: Reports: no symptoms Cardiovascular: Reports: no symptoms Allergies: Coded Allergies: No Known Allergies (Unverified , 08/21/16) Objective Last 24 Hour Vital Signs Date Time Temp Pulse Resp B/P Pulse Ox O2 Delivery O2 Flow Rate FiO2 12/11/16 21:11 68 145/88 12/11/16 19:00 97.0 68 18 145/88 97 Room Air 12/11/16 16:00 97.7 61 18 145/90 94 Room Air 12/11/16 11:33 98.1 67 14 94/50 93 Room Air 12/11/16 08:12 66 100/41 12/11/16 07:13 98.1 66 14 100/41 94 Room Air 12/11/16 04:00 98.1 63 18 95/52 93 Room Air 12/11/16 00:00 98.1 64 18 101/56 99 Room Air Intake and Output 12/10/16 12/11/16 19:00 07:00 Intake Total 1300 ml 240 ml Output Total 1100 ml 350 ml Balance 200 ml -110 ml Intake Oral 1300 ml 240 ml Output Urine Total 1100 ml 350 ml # Voids 4 # Bowel Movements 1 1 Height (Feet): 6 Height (Inches): 3.00 Weight (Pounds): 236 General Appearance: WD/WN EENT: PERRL/EOMI Neck: supple Cardiovascular: normal rate Respiratory/Chest: lungs clear Extremities: non-tender Edema: 2+ Leg (L), 2+ Leg (R), 2+ Pedal (L) Neurologic: oriented x 3 Noni Bush MD Dec 11, 2016 21:40
[2016-12-12] VITALS: BP 102/57
[2016-12-12 04:00] VITALS: BP 102/56
[2016-12-12] MEDS: Mylanta II UD 30ml ORAL SCH ×3 (06:02→21:55)
[2016-12-12] MEDS: guaiFENesin 100mg/5ml Liq ud PO PRN (06:07)
[2016-12-12 07:57] VITALS: BP 109/58
[2016-12-12] MEDS: Lactulose 20gm/30ml UDC ORAL SCH ×2 (09:00→17:59)
[2016-12-12] MEDS: Spironolactone 50mg tab ORAL SCH (09:00)
[2016-12-12] MEDS: Propranolol 10mg tab ORAL SCH ×2 (09:00→21:55)
[2016-12-12 11:52] VITALS: BP 98/54
--- NOTE | 2016-12-12 13:09 | GI Initial Consult Note ---
Nyla Huitron N.PStella 12/12/16 1309: History of Present Illness General Date patient seen: Dec 12, 2016 Time patient seen: 13:07 Reason for Hospitalization: General Complaint Referring physician: UHGO SNELL Reason for Consultation: CIRRHOSIS Present Illness HPI 66 year old patient that was recently discharged from [facility] underwent an upper endoscopy on 08/23/2016 with findings of grade 4 distal esophageal varices, small hiatal hernia, distal esophageal bleeding, and portal hypertensive gastropathy. He was started on propranolol. Dr. Liang was consulted for evaluation of thrombocytopenia consistent with end-stage cirrhosis as well as hepatomegaly and hepatosplenomegaly. Hepatitis panel was positive for hepatitis C. Patient presents today with c/o of weakness and fatigue which has now improved. Assessment ETOH cirrhosis Hepatitis C hepatic encephalopathy CHF Esophageal varices s/p EGD 08/2016 - SUMMARY OF FINDINGS: 1. One column of grade 4 distal esophageal varices with questionable stigmata with some smaller columns next to it. 2. Small hiatal hernia. 3. Distal esophageal ring. 4. Portal hypertensive gastropathy. Home Meds Reported Medications Guaifenesin (Guaifenesin) 100 Mg/5 Ml Liquid, 100 MG ORAL Q4HR for For Cough, # 1 ML 0 Refills 11/30/16 Al Hydroxide/mg Hydroxide (Mag-Al Liquid) 30 Ml Oral.susp, 30 ML ORAL Q8HR for Abdominal cramps, ML 11/30/16 Acetaminophen (Acetaminophen) 650 Mg/20.3 Ml Solution, 500 MG ORAL Q8H Y for Prn Headache/Temp > 101, ML 0 Refills 11/30/16 Lactulose (LACTULOSE*) 20 Gm/30 Ml Solution, 14.666 ML ORAL BID, ML 0 Refills 11/30/16 Propranolol HCl (Propranolol HCl) 10 Mg Tablet, 10 MG GT BID, TAB 11/30/16 Tamsulosin HCl (Flomax) 0.4 Mg Cap.er.24h, 0.4 MG ORAL BEDTIME, CAP 11/30/16 Furosemide* (LASIX*) 20 Mg Tablet, 20 MG ORAL DAILY, TAB 11/22/16 Pantoprazole Sodium (PROTONIX) 20 Mg Tablet.dr, 40 MG ORAL BID, TAB 11/22/16 Spironolactone (ALDACTONE) 50 Mg Tablet, 50 MG ORAL DAILY, TAB 08/21/16 Med list reviewed/reconciled: Yes Allergies: Coded Allergies: No Known Allergies (Unverified , 08/21/16) Patient History History Provided By: Patient, Medical Record [facility] Narrative Past Medical History: No History, Except For Hx Cardiac Problems: Yes Hx Hypertension: Yes Hx Cancer: No Hx Gastrointestinal Problems: Yes - ascites, Liver disease Hx Neurological Problems: No Social History: Denies: alcohol use, drug use, other, smoking Review of Systems All Other Systems: negative except mentioned in HPI Physical Exam Vital Signs Date Time Temp Pulse Resp B/P Pulse Ox O2 Delivery O2 Flow Rate FiO2 12/08/16 08:18 98.1 69 19 108/59 93 Room Air Sp02 EP Interpretation: reviewed General Appearance: well appearing, no apparent distress, alert Head: normocephalic EENT: normal ENT inspection Neck: supple Respiratory: no respiratory distress Cardiovascular: normal rate Gastrointestinal: normal inspection, non tender, soft Rectal: deferred Genitourinary: no CVA tenderness Musculoskeletal: back normal Neurologic: normal inspection, alert, oriented x3, responsive Psychiatric: normal inspection, judgement/insight normal, memory normal Skin: normal inspection, normal color, no rash Lymphatic: normal inspection, no adenopathy Other Organ Systems BLE edema +1 Current Medications Current Medications Medications (Trade) Dose Ordered Sig/Jayne Route PRN Reason Start Time Stop Time Status Last Admin Dose Admin Acetaminophen (Tylenol) 500 mg Q8HR PRN ORAL Mild Pain/Temp > 100.5 11/30/16 19:30 12/30/16 19:29 Al Hydroxide/Mg Hydroxide (Mylanta II) 30 ml Q8HR ORAL 11/30/16 22:00 12/30/16 21:59 12/12/16 06:02 Diphenhydramine HCl (Benadryl Cream) 1 applic TIDPRN PRN TOPIC Itching 12/08/16 18:30 01/07/17 18:29 12/08/16 19:00 Furosemide (Lasix) 20 mg DAILY ORAL 12/01/16 09:00 12/31/16 08:59 12/12/16 08:59 Guaifenesin (Robitussin) 100 mg Q4H PRN PO For Cough 11/30/16 19:45 12/30/16 19:44 12/12/16 06:07 Lactulose (Cephulac) 20 gm BID ORAL 12/01/16 09:00 12/31/16 08:59 12/11/16 08:12 Phenyleph/Shark Oil/Glycerin/ Petrol (Preparation H) 1 applic TIDPRN PRN RECTAL Hemorroidal Pain 12/10/16 22:00 01/09/17 21:59 Propranolol HCl (Inderal) 10 mg Q12HR ORAL 11/30/16 21:00 12/30/16 20:59 12/11/16 21:11 Spironolactone (Aldactone) 50 mg DAILY ORAL 12/01/16 09:00 12/31/16 08:59 12/11/16 08:12 Tamsulosin HCl (Flomax) 0.4 mg BEDTIME ORAL 11/30/16 21:00 12/30/16 20:59 12/11/16 21:11 GI: Plan Problems: (1) Weakness (2) Esophageal varices determined by endoscopy (3) Pancytopenia (4) Alcoholic cirrhosis (5) Anasarca Plan AFP elevation elevated iron levels >> 85 elevated CEA >> 6.5 cont propranolol, hold for SBP < 90 stable H&H, transfuse prn >> will consider EGD if patient has UGIB/drop in Hgb elevated ammonia >> lactulose + Xifaxan >> titrate lactulose to 3 BMs daily hepatitis panel >> Hep C positive cont diuretics PPI Anusol prn fu labs, ammonia Discussed with Dr. Oh. Thank you for referring this patient, we will follow. TUTU OH 12/13/16 1401: History of Present Illness General Reason for Hospitalization: General Complaint Present Illness Home Meds Reported Medications Guaifenesin (Guaifenesin) 100 Mg/5 Ml Liquid, 100 MG ORAL Q4HR for For Cough, # 1 ML 0 Refills 11/30/16 Al Hydroxide/mg Hydroxide (Mag-Al Liquid) 30 Ml Oral.susp, 30 ML ORAL Q8HR for Abdominal cramps, ML 11/30/16 Acetaminophen (Acetaminophen) 650 Mg/20.3 Ml Solution, 500 MG ORAL Q8H Y for Prn Headache/Temp > 101, ML 0 Refills 11/30/16 Lactulose (LACTULOSE*) 20 Gm/30 Ml Solution, 14.666 ML ORAL BID, ML 0 Refills 11/30/16 Propranolol HCl (Propranolol HCl) 10 Mg Tablet, 10 MG GT BID, TAB 11/30/16 Tamsulosin HCl (Flomax) 0.4 Mg Cap.er.24h, 0.4 MG ORAL BEDTIME, CAP 11/30/16 Furosemide* (LASIX*) 20 Mg Tablet, 20 MG ORAL DAILY, TAB 11/22/16 Pantoprazole Sodium (PROTONIX) 20 Mg Tablet.dr, 40 MG ORAL BID, TAB 11/22/16 Spironolactone (ALDACTONE) 50 Mg Tablet, 50 MG ORAL DAILY, TAB 08/21/16 Allergies: Coded Allergies: No Known Allergies (Unverified , 08/21/16) GI: Plan Plan The patient was seen and examined at bedside and all new and available data was reviewed in the patients chart. I agree with the above findings, impression and plan. (Patient seen earlier today. Signature stamp does not reflect patient encounter time.). -[facility] L[facility] N.PStella Dec 12, 2016 13:09 TUTU [place] Dec 13, 2016 14:01
--- NOTE | 2016-12-12 13:59 | General Progress Note ---
Assessment/Plan Status: stable Assessment/Plan 1. Low blood pressure, at the patient's baseline with no evidence of active infection or active cardiovascular disorder. We will monitor. 2. Chronic anemia. 3. Chronic renal failure. 4. Cytopenia. 5. Alcoholic cirrhosis. 6. Protein-calorie malnourishment. 7. Hepatic encephalopathy. 8. Pulmonary infiltrates with no gross evidence of acute pathology. 9. Gastrointestinal and deep vein thrombosis prophylaxis. Plan: Hospice c/s Placement in progress. Medically with anticipated life expectancy less than six months. Dc with hospice care, pending to placement Subjective ROS Limited/Unobtainable: Yes Constitutional: Reports: no symptoms HEENT: Reports: no symptoms Cardiovascular: Reports: no symptoms Respiratory: Reports: no symptoms Allergies: Coded Allergies: No Known Allergies (Unverified , 08/21/16) Objective Last 24 Hour Vital Signs Date Time Temp Pulse Resp B/P Pulse Ox O2 Delivery O2 Flow Rate FiO2 12/12/16 11:52 97.6 67 20 98/54 99 Room Air 12/12/16 09:00 58 109/58 12/12/16 07:57 97.7 58 20 109/58 97 Room Air 12/12/16 04:00 98.1 60 20 102/56 94 Room Air 12/12/16 00:00 98.1 67 20 102/57 95 Room Air 12/11/16 21:11 68 145/88 12/11/16 19:00 97.0 68 18 145/88 97 Room Air 12/11/16 16:00 97.7 61 18 145/90 94 Room Air Intake and Output 12/11/16 12/12/16 19:00 07:00 Intake Total 1200 ml 480 ml Output Total 800 ml 300 ml Balance 400 ml 180 ml Intake Oral 1200 ml 480 ml Output Urine Total 800 ml 300 ml # Voids 5 # Bowel Movements 3 1 Height (Feet): 6 Height (Inches): 3.00 Weight (Pounds): 236 General Appearance: no apparent distress EENT: PERRL/EOMI Neck: supple Cardiovascular: normal rate Respiratory/Chest: lungs clear Abdomen: soft Neurologic: oriented x 3 Noni Bush MD Dec 12, 2016 13:59
[2016-12-12 16:00] VITALS: BP 100/56
[2016-12-12 19:00] VITALS: BP 107/58
[2016-12-12] MEDS: Tamsulosin 0.4mg cap ORAL SCH (21:55)
[2016-12-12] MEDS: Anusol HC Supp RECTAL PRN (22:59)
[2016-12-13] VITALS: BP 90/49
[2016-12-13 04:00] VITALS: BP 105/53
[2016-12-13] MEDS: Mylanta II UD 30ml ORAL SCH ×3 (06:01→20:59)
[2016-12-13 07:08] LABS: MEAN CORPUSCULAR HEMOGLOBIN 31.6 PG (27.0-31.0); MEAN CORPUSCULAR HGB CONC 31.4 G/DL (32.0-36.0); MEAN CORPUSCULAR VOLUME 100 FL (80-99); MEAN PLATELET VOLUME 7.9 FL (6.5-10.1); PLATELET COUNT 76 K/UL (150-450); RED BLOOD COUNT 2.53 M/UL (4.70-6.10); WHITE BLOOD COUNT 4.2 K/UL (4.8-10.8)
[2016-12-13 07:15] LABS: AMMONIA 76 umol/L (16-60)
[2016-12-13 07:20] LABS: ALANINE AMINOTRANSFERASE 38 U/L (3-41); ALBUMIN/GLOBULIN RATIO 0.3 (1.0-2.7); ANION GAP 9 (5-15); ASPARTATE AMINO TRANSFERASE 90 U/L (5-40); CALCIUM 8.2 mg/dL (8.6-10.2); CARBON DIOXIDE 23 mEQ/L (20-30); CHLORIDE 102 mEQ/L (98-107); CREATININE 0.8 mg/dL (0.7-1.2); GLOMERULAR FILTRATION RATE > 60 mL/min (>60); HEMOLYSIS 3; POTASSIUM 4.6 mEQ/L (3.4-4.9); SODIUM 134 mEQ/L (135-145); TOTAL PROTEIN 6.3 g/dL (6.6-8.7)
[2016-12-13 07:31] LABS: BILIRUBIN,DIRECT 1.6 mg/dL (0.1-0.3)
[2016-12-13 08:19] VITALS: BP 95/49
[2016-12-13] MEDS: Spironolactone 50mg tab ORAL SCH (08:44)
[2016-12-13] MEDS: Propranolol 10mg tab ORAL SCH ×2 (08:45→20:53)
[2016-12-13] MEDS: Lactulose 20gm/30ml UDC ORAL SCH (08:45)
--- NOTE | 2016-12-13 10:04 | GI Progress Note ---
Assessment/Plan Problems: (1) Esophageal varices determined by endoscopy ICD Codes: I85.00 - Esophageal varices without bleeding SNOMED: 34386531, 990196264 (2) Weakness ICD Codes: R53.1 - Weakness SNOMED: 58176405 (3) Pancytopenia ICD Codes: D61.818 - Other pancytopenia SNOMED: 331681061 (4) Alcoholic cirrhosis ICD Codes: K70.30 - Alcoholic cirrhosis of liver without ascites SNOMED: 995157502, 552381707 (5) Anasarca ICD Codes: R60.1 - Generalized edema SNOMED: 374269438, 999398349 Status: unchanged Status Narrative Discussed with Dr. Denson Assessment/Plan s/p EGD 08/2016 - SUMMARY OF FINDINGS: 1. One column of grade 4 distal esophageal varices with questionable stigmata with some smaller columns next to it. 2. Small hiatal hernia. 3. Distal esophageal ring. 4. Portal hypertensive gastropathy. AFP elevation elevated iron levels >> 85 elevated CEA >> 6.5 cont propranolol, hold for SBP < 90 stable H&H, transfuse prn >> will consider EGD if patient has UGIB/drop in Hgb elevated ammonia >> lactulose + Xifaxan >> titrate lactulose to 3 BMs daily hepatitis panel >> Hep C positive cont diuretics PPI Anusol prn fu labs, ammonia Subjective Subjective weakness improved Objective Last 24 Hour Vital Signs Date Time Temp Pulse Resp B/P Pulse Ox O2 Delivery O2 Flow Rate FiO2 12/13/16 08:19 98.2 69 20 95/49 92 Room Air 12/13/16 04:00 98.6 66 20 105/53 95 Room Air 12/13/16 00:00 98.1 65 20 90/49 99 Room Air 12/12/16 21:55 82 107/58 12/12/16 19:00 97.7 82 18 107/58 96 Room Air 12/12/16 16:00 97.5 86 18 100/56 Room Air 12/12/16 11:52 97.6 67 20 98/54 99 Room Air Intake and Output 12/12/16 12/13/16 19:00 07:00 Intake Total 480 ml 1020 ml Output Total 450 ml 1010 ml Balance 30 ml 10 ml Intake Oral 480 ml 1020 ml Output Urine Total 450 ml 1010 ml # Voids 2 7 # Bowel Movements 2 6 Laboratory Tests Test 12/12/16 14:20 12/13/16 05:20 Stool Occult Blood Pending White Blood Count 4.2 K/UL (4.8-10.8) L Red Blood Count 2.53 M/UL (4.70-6.10) L Hemoglobin 8.0 G/DL (14.2-18.0) L Hematocrit 25.4 % (42.0-52.0) L Mean Corpuscular Volume 100 FL (80-99) H Mean Corpuscular Hemoglobin 31.6 PG (27.0-31.0) H Mean Corpuscular Hemoglobin Concent 31.4 G/DL (32.0-36.0) L Red Cell Distribution Width 15.0 % (11.6-14.8) H Platelet Count 76 K/UL (150-450) L Mean Platelet Volume 7.9 FL (6.5-10.1) Neutrophils (%) (Auto) % (45.0-75.0) Lymphocytes (%) (Auto) % (20.0-45.0) Monocytes (%) (Auto) % (1.0-10.0) Eosinophils (%) (Auto) % (0.0-3.0) Basophils (%) (Auto) % (0.0-2.0) Neutrophils % (Manual) Pending Lymphocytes % (Manual) Pending Platelet Estimate Pending Platelet Morphology Pending Sodium Level 134 mEQ/L (135-145) L Potassium Level 4.6 mEQ/L (3.4-4.9) Chloride Level 102 mEQ/L (98-107) Carbon Dioxide Level 23 mEQ/L (20-30) Anion Gap 9 (5-15) Blood Urea Nitrogen 13 mg/dL (7-23) Creatinine 0.8 mg/dL (0.7-1.2) Estimat Glomerular Filtration Rate > 60 mL/min (>60) Glucose Level 105 mg/dL (74-106) Calcium Level 8.2 mg/dL (8.6-10.2) L Total Bilirubin 3.4 mg/dL (0.0-1.2) H Direct Bilirubin 1.6 mg/dL (0.1-0.3) H Aspartate Amino Transf (AST/SGOT) 90 U/L (5-40) H Alanine Aminotransferase (ALT/SGPT) 38 U/L (3-41) Alkaline Phosphatase 52 U/L (40-129) Ammonia 76 umol/L (16-60) H Total Protein 6.3 g/dL (6.6-8.7) L Albumin 1.6 g/dL (3.5-5.2) L Globulin 4.7 g/dL Albumin/Globulin Ratio 0.3 (1.0-2.7) L Height (Feet): 6 Height (Inches): 3.00 Weight (Pounds): 236 General Appearance: no apparent distress, alert Cardiovascular: normal rate Respiratory/Chest: normal breath sounds, no respiratory distress Abdominal Exam: normal bowel sounds, non tender, soft Extremities: other - BLE +1 edema Nyla Huitron N.P. Dec 13, 2016 10:04
[2016-12-13 10:10] LABS: BAND NEUTROPHILS % (MANUAL) 0 % (0-8); BASOPHILS % (MANUAL) 1 % (0-2); EOSINOPHILS % (MANUAL) 5 % (0-3); LYMPHOCYTES % (MANUAL) 45 % (20-45); NEUTROPHILS % (MANUAL) 41 % (45-75); PLATELET ESTIMATE DECREASED; PLATELET MORPHOLOGY NORMAL; TOTAL CELLS COUNTED 100
[2016-12-13 10:12] LABS: ANISOCYTOSIS 1+; HYPOCHROMASIA 2+
[2016-12-13] MEDS: Rifaximin 550mg tab ORAL SCH ×2 (10:13→20:53)
[2016-12-13 10:14] LABS: ACANTHOCYTES OCCASIONAL; MACROCYTES 1+
[2016-12-13 11:49] VITALS: BP 98/48
[2016-12-13 16:00] VITALS: BP 99/58
--- NOTE | 2016-12-13 16:55 | General Progress Note ---
Assessment/Plan Status: stable Assessment/Plan 1. Low blood pressure, at the patient's baseline with no evidence of active infection or active cardiovascular disorder. We will monitor. 2. Chronic anemia. 3. Chronic renal failure. 4. Cytopenia. 5. Alcoholic cirrhosis. 6. Protein-calorie malnourishment. 7. Hepatic encephalopathy. 8. Pulmonary infiltrates with no gross evidence of acute pathology. 9. Gastrointestinal and deep vein thrombosis prophylaxis. Plan: Placement in progress. Medically with anticipated life expectancy less than six months. Dc , pending to placement High risk for Re-admission Subjective ROS Limited/Unobtainable: No Constitutional: Reports: malaise HEENT: Reports: no symptoms Cardiovascular: Reports: no symptoms Respiratory: Reports: no symptoms Allergies: Coded Allergies: No Known Allergies (Unverified , 08/21/16) Objective Last 24 Hour Vital Signs Date Time Temp Pulse Resp B/P Pulse Ox O2 Delivery O2 Flow Rate FiO2 12/13/16 16:00 98.1 64 20 99/58 97 Room Air 12/13/16 11:49 97.9 68 19 98/48 94 Room Air 12/13/16 08:19 98.2 69 20 95/49 92 Room Air 12/13/16 04:00 98.6 66 20 105/53 95 Room Air 12/13/16 00:00 98.1 65 20 90/49 99 Room Air 12/12/16 21:55 82 107/58 12/12/16 19:00 97.7 82 18 107/58 96 Room Air Intake and Output 12/12/16 12/13/16 19:00 07:00 Intake Total 480 ml 1020 ml Output Total 450 ml 1010 ml Balance 30 ml 10 ml Intake Oral 480 ml 1020 ml Output Urine Total 450 ml 1010 ml # Voids 2 7 # Bowel Movements 2 6 Laboratory Tests 12/13/16 05:20: White Blood Count 4.2L, Red Blood Count 2.53L, Hemoglobin 8.0L, Hematocrit 25.4L , Mean Corpuscular Volume 100H, Mean Corpuscular Hemoglobin 31.6H, Mean Corpuscular Hemoglobin Concent 31.4L, Red Cell Distribution Width 15.0H, Platelet Count 76L, Mean Platelet Volume 7.9, Neutrophils (%) (Auto) , Lymphocytes (%) (Auto) , Monocytes (%) (Auto) , Eosinophils (%) (Auto) , Basophils (%) (Auto) , Differential Total Cells Counted 100, Neutrophils % ( Manual) 41L, Lymphocytes % (Manual) 45, Monocytes % (Manual) 8, Eosinophils % ( Manual) 5H, Basophils % (Manual) 1, Band Neutrophils 0, Platelet Estimate DecreasedL, Platelet Morphology Normal, Hypochromasia 2+, Anisocytosis 1+, Macrocytosis 1+, Acanthocytes Occasional, Sodium Level 134L, Potassium Level 4.6 , Chloride Level 102, Carbon Dioxide Level 23, Anion Gap 9, Blood Urea Nitrogen 13, Creatinine 0.8, Estimat Glomerular Filtration Rate > 60, Glucose Level 105, Calcium Level 8.2L, Total Bilirubin 3.4H, Direct Bilirubin 1.6H, Aspartate Amino Transf (AST/SGOT) 90H, Alanine Aminotransferase (ALT/SGPT) 38, Alkaline Phosphatase 52, Ammonia 76H, Total Protein 6.3L, Albumin 1.6L, Globulin 4.7, Albumin/Globulin Ratio 0.3L Height (Feet): 6 Height (Inches): 3.00 Weight (Pounds): 236 General Appearance: no apparent distress EENT: PERRL/EOMI Neck: supple Cardiovascular: normal rate Respiratory/Chest: lungs clear Abdomen: soft, distended Extremities: non-tender Edema: 2+ Leg (R), 2+ Pedal (L), 2+ Pedal (R) Neurologic: oriented x 3 Noni Bush MD Dec 13, 2016 16:55
[2016-12-13 19:00] VITALS: BP 107/57
[2016-12-13] MEDS: guaiFENesin 100mg/5ml Liq ud PO PRN (20:53)
[2016-12-13] MEDS: Tamsulosin 0.4mg cap ORAL SCH (20:53)
[2016-12-14] VITALS: BP 97/53
[2016-12-14] MEDS: Anusol HC Supp RECTAL PRN (02:46)
[2016-12-14 04:00] VITALS: BP 98/56
[2016-12-14] MEDS: Mylanta II UD 30ml ORAL SCH ×2 (06:27→14:00)
[2016-12-14 07:42] LABS: MEAN CORPUSCULAR HEMOGLOBIN 31.7 PG (27.0-31.0); MEAN CORPUSCULAR HGB CONC 31.5 G/DL (32.0-36.0); MEAN CORPUSCULAR VOLUME 100 FL (80-99); MEAN PLATELET VOLUME 10.3 FL (6.5-10.1); PLATELET COUNT 82 K/UL (150-450); RED BLOOD COUNT 2.47 M/UL (4.70-6.10); RED CELL DISTRIBUTION WIDTH 14.7 % (11.6-14.8); WHITE BLOOD COUNT 4.7 K/UL (4.8-10.8)
[2016-12-14 07:50] VITALS: BP 94/49
[2016-12-14 07:52] LABS: ALANINE AMINOTRANSFERASE 38 U/L (3-41); ALBUMIN/GLOBULIN RATIO 0.3 (1.0-2.7); ANION GAP 12 (5-15); ASPARTATE AMINO TRANSFERASE 87 U/L (5-40); CALCIUM 8.2 mg/dL (8.6-10.2); CARBON DIOXIDE 23 mEQ/L (20-30); CHLORIDE 100 mEQ/L (98-107); CREATININE 0.9 mg/dL (0.7-1.2); GLOMERULAR FILTRATION RATE > 60 mL/min (>60); HEMOLYSIS 0; POTASSIUM 4.2 mEQ/L (3.4-4.9); SODIUM 135 mEQ/L (135-145); TOTAL PROTEIN 6.5 g/dL (6.6-8.7)
[2016-12-14 08:05] LABS: BILIRUBIN,DIRECT 1.5 mg/dL (0.1-0.3)
[2016-12-14] MEDS: Propranolol 10mg tab ORAL SCH ×2 (09:00→09:49)
[2016-12-14] MEDS: Spironolactone 50mg tab ORAL SCH (09:00)
[2016-12-14] MEDS ORDERED: Lactulose 20gm/30ml UDC ORAL SCH (09:00)
--- NOTE | 2016-12-14 09:46 | GI Progress Note ---
Assessment/Plan Problems: (1) Esophageal varices determined by endoscopy ICD Codes: I85.00 - Esophageal varices without bleeding SNOMED: 16585841, 158418362 (2) Weakness ICD Codes: R53.1 - Weakness SNOMED: 68040471 (3) Pancytopenia ICD Codes: D61.818 - Other pancytopenia SNOMED: 544694207 (4) Alcoholic cirrhosis ICD Codes: K70.30 - Alcoholic cirrhosis of liver without ascites SNOMED: 595537614, 042844815 (5) Anasarca ICD Codes: R60.1 - Generalized edema SNOMED: 966673738, 758547086 Status: stable Status Narrative Discussed with Dr. Denson. Assessment/Plan s/p EGD 08/2016 - SUMMARY OF FINDINGS: 1. One column of grade 4 distal esophageal varices with questionable stigmata with some smaller columns next to it. 2. Small hiatal hernia. 3. Distal esophageal ring. 4. Portal hypertensive gastropathy. AFP elevation elevated iron levels >> 85 elevated CEA >> 6.5 cont propranolol, hold for SBP < 90 stable H&H, transfuse prn >> will consider EGD if patient has UGIB/drop in Hgb elevated ammonia >> lactulose + Xifaxan >> titrate lactulose to 3 BMs daily hepatitis panel >> Hep C positive cont diuretics PPI Anusol prn fu labs, ammonia Subjective Subjective weakness improved diarrhea frequency improved Objective Last 24 Hour Vital Signs Date Time Temp Pulse Resp B/P Pulse Ox O2 Delivery O2 Flow Rate FiO2 12/14/16 07:50 98.4 68 19 94/49 94 Room Air 12/14/16 04:00 98.4 74 20 98/56 94 Room Air 12/14/16 00:00 99.5 69 20 97/53 96 Room Air 12/13/16 20:53 73 107/57 12/13/16 19:00 99.0 73 20 107/57 95 Room Air 12/13/16 16:00 98.1 64 20 99/58 97 Room Air 12/13/16 11:49 97.9 68 19 98/48 94 Room Air Intake and Output 12/13/16 12/14/16 19:00 07:00 Intake Total 450 ml 240 ml Output Total 420 ml 400 ml Balance 30 ml -160 ml Intake Oral 450 ml 240 ml Output Urine Total 420 ml 400 ml # Voids 4 # Bowel Movements 2 Laboratory Tests Test 12/14/16 05:25 White Blood Count 4.7 K/UL (4.8-10.8) L Red Blood Count 2.47 M/UL (4.70-6.10) L Hemoglobin 7.8 G/DL (14.2-18.0) L Hematocrit 24.8 % (42.0-52.0) L Mean Corpuscular Volume 100 FL (80-99) H Mean Corpuscular Hemoglobin 31.7 PG (27.0-31.0) H Mean Corpuscular Hemoglobin Concent 31.5 G/DL (32.0-36.0) L Red Cell Distribution Width 14.7 % (11.6-14.8) Platelet Count 82 K/UL (150-450) L Mean Platelet Volume 10.3 FL (6.5-10.1) H Neutrophils (%) (Auto) % (45.0-75.0) Lymphocytes (%) (Auto) % (20.0-45.0) Monocytes (%) (Auto) % (1.0-10.0) Eosinophils (%) (Auto) % (0.0-3.0) Basophils (%) (Auto) % (0.0-2.0) Neutrophils % (Manual) Pending Lymphocytes % (Manual) Pending Platelet Estimate Pending Platelet Morphology Pending Sodium Level 135 mEQ/L (135-145) Potassium Level 4.2 mEQ/L (3.4-4.9) Chloride Level 100 mEQ/L (98-107) Carbon Dioxide Level 23 mEQ/L (20-30) Anion Gap 12 (5-15) Blood Urea Nitrogen 12 mg/dL (7-23) Creatinine 0.9 mg/dL (0.7-1.2) Estimat Glomerular Filtration Rate > 60 mL/min (>60) Glucose Level 120 mg/dL (74-106) H Calcium Level 8.2 mg/dL (8.6-10.2) L Total Bilirubin 3.2 mg/dL (0.0-1.2) H Direct Bilirubin 1.5 mg/dL (0.1-0.3) H Aspartate Amino Transf (AST/SGOT) 87 U/L (5-40) H Alanine Aminotransferase (ALT/SGPT) 38 U/L (3-41) Alkaline Phosphatase 56 U/L (40-129) Total Protein 6.5 g/dL (6.6-8.7) L Albumin 1.8 g/dL (3.5-5.2) L Globulin 4.7 g/dL Albumin/Globulin Ratio 0.3 (1.0-2.7) L Height (Feet): 6 Height (Inches): 3.00 Weight (Pounds): 236 General Appearance: no apparent distress, alert Cardiovascular: normal rate Respiratory/Chest: normal breath sounds, no respiratory distress Abdominal Exam: normal bowel sounds, non tender, soft Extremities: other - BLE +1 Nyla Huitron N.P. Dec 14, 2016 09:46
[2016-12-14] MEDS: Rifaximin 550mg tab ORAL SCH (09:48)
[2016-12-14 10:19] LABS: ANISOCYTOSIS 1+; BAND NEUTROPHILS % (MANUAL) 0 % (0-8); BASOPHILS % (MANUAL) 0 % (0-2); EOSINOPHILS % (MANUAL) 6 % (0-3); HYPOCHROMASIA 1+; LYMPHOCYTES % (MANUAL) 40 % (20-45); MACROCYTES 1+; NEUTROPHILS % (MANUAL) 45 % (45-75); PLATELET ESTIMATE DECREASED; PLATELET MORPHOLOGY NORMAL; TOTAL CELLS COUNTED 100
--- NOTE | 2016-12-14 10:29 | Diagnostic Imaging Report ---
APPROVED REPORT CPT Code: 57370 Present Symptoms Upper Extremity Pain: Left Comments: Technically difficult study due to swelling . LEFT UPPER EXTREMITY: Venous imaging reveals patency of the internal jugular, subclavian, axillary and brachial veins. The cephalic and basilic veins are also patent. Doppler indicates normal spontaneous flow within these venous segments.
--- NOTE | 2016-12-14 10:46 | General Progress Note ---
Assessment/Plan Status: stable Assessment/Plan 1. Low blood pressure, at the patient's baseline with no evidence of active infection or active cardiovascular disorder. We will monitor. 2. Chronic anemia. 3. Chronic renal failure. 4. Cytopenia. 5. Alcoholic cirrhosis. 6. Protein-calorie malnourishment. 7. Hepatic encephalopathy. 8. Pulmonary infiltrates with no gross evidence of acute pathology. 9. Gastrointestinal and deep vein thrombosis prophylaxis. Plan: Placement in progress. Medically with anticipated life expectancy less than six months. Dc , pending to placement High risk for Re-admission Subjective ROS Limited/Unobtainable: No Constitutional: Reports: weakness HEENT: Reports: no symptoms Cardiovascular: Reports: no symptoms Respiratory: Reports: no symptoms Allergies: Coded Allergies: No Known Allergies (Unverified , 08/21/16) Objective Last 24 Hour Vital Signs Date Time Temp Pulse Resp B/P Pulse Ox O2 Delivery O2 Flow Rate FiO2 12/14/16 09:00 68 94/49 12/14/16 07:50 98.4 68 19 94/49 94 Room Air 12/14/16 04:00 98.4 74 20 98/56 94 Room Air 12/14/16 00:00 99.5 69 20 97/53 96 Room Air 12/13/16 20:53 73 107/57 12/13/16 19:00 99.0 73 20 107/57 95 Room Air 12/13/16 16:00 98.1 64 20 99/58 97 Room Air 12/13/16 11:49 97.9 68 19 98/48 94 Room Air Intake and Output 12/13/16 12/14/16 19:00 07:00 Intake Total 450 ml 240 ml Output Total 420 ml 400 ml Balance 30 ml -160 ml Intake Oral 450 ml 240 ml Output Urine Total 420 ml 400 ml # Voids 4 # Bowel Movements 2 Laboratory Tests 12/14/16 05:25: White Blood Count 4.7L, Red Blood Count 2.47L, Hemoglobin 7.8L, Hematocrit 24.8L , Mean Corpuscular Volume 100H, Mean Corpuscular Hemoglobin 31.7H, Mean Corpuscular Hemoglobin Concent 31.5L, Red Cell Distribution Width 14.7, Platelet Count 82L, Mean Platelet Volume 10.3H, Neutrophils (%) (Auto) , Lymphocytes (%) (Auto) , Monocytes (%) (Auto) , Eosinophils (%) (Auto) , Basophils (%) (Auto) , Differential Total Cells Counted 100, Neutrophils % ( Manual) 45, Lymphocytes % (Manual) 40, Monocytes % (Manual) 9, Eosinophils % ( Manual) 6H, Basophils % (Manual) 0, Band Neutrophils 0, Platelet Estimate DecreasedL, Platelet Morphology Normal, Hypochromasia 1+, Anisocytosis 1+, Macrocytosis 1+, Sodium Level 135, Potassium Level 4.2, Chloride Level 100, Carbon Dioxide Level 23, Anion Gap 12, Blood Urea Nitrogen 12, Creatinine 0.9, Estimat Glomerular Filtration Rate > 60, Glucose Level 120H, Calcium Level 8.2L , Total Bilirubin 3.2H, Direct Bilirubin 1.5H, Aspartate Amino Transf (AST/SGOT ) 87H, Alanine Aminotransferase (ALT/SGPT) 38, Alkaline Phosphatase 56, Total Protein 6.5L, Albumin 1.8L, Globulin 4.7, Albumin/Globulin Ratio 0.3L Height (Feet): 6 Height (Inches): 3.00 Weight (Pounds): 236 General Appearance: no apparent distress EENT: PERRL/EOMI Neck: supple Cardiovascular: normal rate Respiratory/Chest: lungs clear Abdomen: soft Edema: 2+ Leg (R), 2+ Pedal (L), 2+ Pedal (R) Neurologic: oriented x 3 Noni Bush MD Dec 14, 2016 10:46
[2016-12-14 11:52] VITALS: BP 99/50
[2016-12-15 10:46] LABS: OTHERS PATHOLOGIST COMMENT
--- NOTE | 2016-12-15 17:33 | Discharge Summary ---
Discharge Summary Hospital Course Date of Admission Nov 30, 2016 at 16:23 Date of Discharge Dec 14, 2016 at 15:43 Admitting Diagnosis WEAKNESS LUIS F Franco is a 66 year old male who was admitted on Nov 30, 2016 at 16:23 for Weakness Hospital Course [id number] Discharge Discharge Disposition [facility] Discharge Diagnoses: Desiree Gao NP Dec 15, 2016 17:33
--- NOTE | 2016-12-16 03:28 | Discharge Summary 2 SIG ---
DATE OF ADMISSION: 11/30/2016 DATE OF DISCHARGE: 12/14/2016 COLUMNIST: Tutu Denson M.D. BRIEF HOSPITAL COURSE: The patient is a 66-year-old male who was recently admitted secondary to acute gastrointestinal bleed. He was diagnosed with upper gastrointestinal variceal bleeding, status post banding. The patient was discharged to a facility; however, had a low blood pressure and the patient was transferred back to the hospital. Vital signs were monitored. Hospice management was discussed. The patient has medically anticipated life expectancy less than 6 months and would need placement. Venous duplex of the left upper extremity was patent. The patient has high risk for readmission and placement has been found. terminal worker and case management department found placement. The patient's family agreed transfer to independent living and the patient was eventually discharged. FINAL DIAGNOSES: 1. Low blood pressure with no evidence of active infection or active cardiovascular disorder. 2. Chronic anemia. 3. Chronic renal failure. 4. Cytopenia. 5. Alcoholic cirrhosis. 6. Protein-calorie malnourishment. 7. Hepatic encephalopathy. 8. Pulmonary infiltrates with no gross evidence of acute pathology. 9. Hospice care. Noni Bush M.D. I have been assigned to dictate discharge summary on this account and I was not involved in the patient's management. Desiree Gao N.P. DR: ROMERO JOB#: [id number] CC: GENESIS
== END 2016-12-14 15:43 | disposition home or self-care (01) | DRG 315 ==
LOC: EDUNIT# 15:26 → EDBD 15:26 → EMR 16:15 → 4E 16:23 → EDBEDREQ 19:08 → 4E 12-03 13:02
DX: I95.9 Hypotension, unspecified (principal); D61.818 Other pancytopenia; E46 Unspecified protein-calorie malnutrition; K72.90 Hepatic failure, unspecified without coma; N18.9 Chronic kidney disease, unspecified; Z68.29 Body mass index [BMI] 29.0-29.9, adult; K70.30 Alcoholic cirrhosis of liver without ascites; D64.9 Anemia, unspecified; R91.8 Other nonspecific abnormal finding of lung field; Z91.81 History of falling
CPT/HCPCS: 36415; 80053; 82140; 82248; 82270; 85007; 85025; 93971

== ENCOUNTER 2017-03-29 13:18 | Outpatient (CLI) | payer MEDICARE ==
[2017-03-29 14:14] VITALS: BP 107/57
[2017-03-29] MEDS ORDERED: BP medication (15:07)
--- NOTE | 2017-03-29 15:21 | GI Progress Note ---
Assessment/Plan Problems: (1) Esophageal varices determined by endoscopy ICD Codes: I85.00 - Esophageal varices without bleeding SNOMED: 98824504, 548178193 (2) Weakness ICD Codes: R53.1 - Weakness SNOMED: 59021741 (3) Pancytopenia ICD Codes: D61.818 - Other pancytopenia SNOMED: 572513753 (4) Alcoholic cirrhosis ICD Codes: K70.30 - Alcoholic cirrhosis of liver without ascites SNOMED: 665018258, 266432756 (5) Anasarca ICD Codes: R60.1 - Generalized edema SNOMED: 066144067, 577050114 (6) KINSEY (acute kidney injury) ICD Codes: N17.9 - Acute kidney failure, unspecified SNOMED: 15648916 (7) Lactic acid acidosis ICD Codes: E87.2 - Acidosis SNOMED: 36006168 Status: stable Status Narrative Seen with Dr. Denson. Assessment/Plan EGD/colonoscopy scheduled for for 04/03/17. - CLD & [employer] prep instructions given and acknowledged. lab draws on procedure day; Hep C genotype + quant, HIV, thyroid panel. Subjective Gastrointestinal/Abdominal: Reports: no symptoms Objective Last 24 Hour Vital Signs Date Time Temp Pulse Resp B/P Pulse Ox O2 Delivery O2 Flow Rate FiO2 03/29/17 14:14 97.8 55 16 107/57 100 General Appearance: no apparent distress, alert Cardiovascular: normal rate Respiratory/Chest: normal breath sounds, no respiratory distress Abdominal Exam: normal bowel sounds, non tender, soft Extremities: normal range of motion Nyla Huitron NDami Mar 29, 2017 15:20
== END 2017-03-29 14:00 | disposition home or self-care (01) ==
LOC: PAN 13:18
DX: I85.00 Esophageal varices without bleeding (principal); R53.1 Weakness; D61.818 Other pancytopenia; K70.30 Alcoholic cirrhosis of liver without ascites; R60.1 Generalized edema; N17.9 Acute kidney failure, unspecified; E87.2 Acidosis
CPT/HCPCS: 99211

== ENCOUNTER 2017-04-03 10:15 | Day surgery (SDC) | payer MEDICARE, MEDICAID ==
[2017-04-03] VITALS (8 sets, daily range): BP systolic 112–124; BP diastolic 61–72
[~2017-04-03] VITALS: Ht 190.5 cm; Wt 105.2 kg
[~2017-04-03 10:15] MED LIST changes: +BP medication
[2017-04-03] MEDS ORDERED: SPIRONOLACTONE100 MG ORAL (11:09)
[2017-04-03] MEDS ORDERED: TAMSULOSIN HCL0.4 MG ORAL (11:10)
[2017-04-03] MEDS ORDERED: PROPRANOLOL HCL10 MG ORAL (11:10)
[2017-04-03] MEDS ORDERED: Propofol 10mg/ml 20ml IV ONE (11:30)
[2017-04-03] MEDS ORDERED: Lidocaine 1% MPF 10mg/ml 5ml ONE (11:30)
--- NOTE | 2017-04-03 11:33 | Anethesia Preoperative Eval ---
Anesthesia Pre-op PMH/ROS General Date of Evaluation: Apr 03, 2017 Time of Evaluation: 11:30 Anesthesiologist: tona ASA Score: ASA 3 Mallampati Score Class I : Soft palate, uvula, fauces, pillars visible Class II: Soft palate, uvula, fauces visible Class III: Soft palate, base of uvula visible Class IV: Only hard plate visible Mallampati Classification: Class II Surgeon: david Diagnosis: esphogeal varices, colon screening Surgical Procedure: egd/colonoscopy Anesthesia History: none Social History: smoking - nonsmoker, alcohol use Family History: no anesthesia problems Allergies: Coded Allergies: No Known Allergies (Unverified , 08/21/16) Past Medical History Cardiovascular: Reports: HTN, other - chf Pulmonary: Reports: other - pneumonia Gastrointestinal/Genitourinary: Reports: other - liver dz, kidney dz Hematology/Immune: Reports: anemia Anesthesia Pre-op Phys. Exam Physician Exam Last Vital Signs Date Time Temp Pulse Resp B/P Pulse Ox O2 Delivery O2 Flow Rate FiO2 04/03/17 10:54 97.0 54 18 112/61 99 Room Air Constitutional: NAD Neurologic: CN 2-12 intact Cardiovascular: RRR Respiratory: CTA Gastrointestinal: S/NT/ND Airway Exam Mallampati Score: Class II MO: full Neck: supple TMD: 2fb ROM: full Teeth: intact Anesthesia Pre-op A/P Studies Pre-op Studies: EKG - sinus bradycardia first degree av block Risk Assessment & Plan Assessment: asa3 Plan: mac Status Change Before Surgery: No Pre-Antibiotics Drug: KELSEY Simon Apr 03, 2017 11:33
--- NOTE | 2017-04-03 11:33 | Short Stay Surgery H&P ---
History of Present Illness History of Present Illness Chief Complaint see recent consult note HPI Kd Franco is a 66 year old male who was admitted on for Esophageal Varices Patient History Allergies: Coded Allergies: No Known Allergies (Unverified , 08/21/16) PAST MEDICAL HISTORY: Past Surgeries: Social History: Medication History Scheduled Furosemide* (Lasix*), 20 MG ORAL DAILY, (Reported) Propranolol Hcl* (Inderal*), 10 MG ORAL DAILY, (Reported) Spironolactone* (Spironolactone*), 50 MG ORAL DAILY, (Reported) Tamsulosin Hcl (Tamsulosin Hcl*), 0.4 MG ORAL BEDTIME, (Reported) Discontinued Medications Acetaminophen (Acetaminophen), 500 MG ORAL Q8H PRN for Prn Headache/Temp > 101, (Reported) Discontinued Reason: Pt stopped taking med Al Hydroxide/mg Hydroxide (Mag-Al Liquid), 30 ML ORAL Q8HR, (Reported) Discontinued Reason: Pt stopped taking med Guaifenesin (Guaifenesin), 100 MG ORAL Q4HR, (Reported) Discontinued Reason: Pt stopped taking med Lactulose (Lactulose*), 14.666 ML ORAL BID, (Reported) Discontinued Reason: Pt stopped taking med Pantoprazole Sodium (Protonix), 40 MG ORAL BID, (Reported) Discontinued Reason: Pt stopped taking med Propranolol HCl (Propranolol HCl), 10 MG GT BID, (Reported) Discontinued Reason: Pt stopped taking med Spironolactone (Aldactone), 50 MG ORAL DAILY, (Reported) Discontinued Reason: Pt stopped taking med Tamsulosin HCl (Flomax), 0.4 MG ORAL BEDTIME, (Reported) Discontinued Reason: Pt stopped taking med Physical Exam Vital Signs Last Vital Signs Date Time Temp Pulse Resp B/P Pulse Ox O2 Delivery O2 Flow Rate FiO2 04/03/17 10:54 97.0 54 18 112/61 99 Room Air Plan Attestation Are the patient's medical conditions optimized for surgery? ELIO OH Apr 03, 2017 11:33
--- NOTE | 2017-04-03 11:34 | Pre-Procedure Note/Attestation ---
Pre-Procedure Note/Attestation Complete Prior to Procedure Planned Procedure: not applicable Procedure Narrative: egd/colonoscopy Indications for Procedure Pre-Operative Diagnosis: cirrhosis, screening colonoscopy Attestation I attest that I discussed the nature of the procedure; its benefits; risks and complications; and alternatives (and the risks and benefits of such alternatives ), prior to the procedure, with the patient (or the patient's legal sales representative printing supplies). I attest that, if there was a reasonable possibility of needing a blood transfusion, the patient (or the patient's legal sales representative printing supplies) was given the [facility] standardized written summary, pursuant to the Salvatore Cherry Blood Safety Act ([place] Health and Safety Code # 1645, as amended). I attest that I re-evaluated the patient just prior to the surgery and that there has been no change in the patient's H&P, except as documented below: ELIO OH Apr 03, 2017 11:34
--- NOTE | 2017-04-03 12:18 | Endoscopy Procedure Note ---
Endoscopy Procedure Note Indication for Procedure: screening colon Esophag varices Procedures Performed: EGD, colonoscopy Operative Findings/Diagnosis: diverticulosis, gastritis Specimen: yes Pt Tolerated Procedure Well: Yes Estimated Blood Loss: none Anesthesiologist: mirella richmond Anesthesia: MAC Implant(s) used?: No 50 yrs or older w/o bx or poly: Yes 10yrs. F/U not recommended: Yes If not recommended, why?: Above average risk 10 yrs. F/U needed: Yes 18 years or older w/prev. colo: No ELIO OH Apr 03, 2017 12:18
--- NOTE | 2017-04-03 12:20 | Immediate Post-Op Evaluation ---
Immediate Post-Op Evalulation Immediate Post-Op Evalulation Procedure: egd/colonoscopy Date of Evaluation: Apr 03, 2017 Time of Evaluation: 12:25 IV Fluids: 0.9ns 350ml Blood Products: none Estimated Blood Loss: negligible Blood Pressure Systolic: 118 Blood Pressure Diastolic: 68 Pulse Rate: 69 Respiratory Rate: 18 O2 Sat by Pulse Oximetry: 98 Temperature (Fahrenheit): 97.3 Pain Score (1-10): 0 Nausea: No Vomiting: No Complications none Patient Status: awake, reacts, patent Hydration Status: adequate Drug: KELSEY Simon Apr 03, 2017 12:20
--- NOTE | 2017-04-03 12:23 | 48 Hour Post Anesthesia Eval ---
Post Anesthesia Evaluation Procedure: egd/colonoscopy Date of Evaluation: Apr 03, 2017 Time of Evaluation: 12:27 Blood Pressure Systolic: 118 0: 68 Pulse Rate: 70 Respiratory Rate: 18 Temperature (Fahrenheit): 97.3 O2 Sat by Pulse Oximetry: 98 Airway: patent Nausea: No Vomiting: No Pain Intensity: 0 Hydration Status: adequate Cardiopulmonary Status: stable Mental Status/LOC: patient returned to baseline Post-Anesthesia Complications: none Follow-up care needed: N/A KELSEY BENITEZ Apr 03, 2017 12:23
[2017-04-03] MEDS ORDERED: DiphenhydrAMINE 50mg/ml Inj IVP PRN (12:30)
[2017-04-03] MEDS ORDERED: Atropine Inj 1mg/10ml Syr IV PRN (12:30)
[2017-04-03] MEDS ORDERED: Hydromorphone 0.5mg/0.5ml inj IVP PRN (12:30)
[2017-04-03] MEDS ORDERED: Midazolam 2mg/2ml Inj IVP PRN (12:30)
[2017-04-03 13:49] LABS: MEAN CORPUSCULAR VOLUME 103 FL (80-99); PLATELET COUNT 64 K/UL (150-450); RED BLOOD COUNT 2.78 M/UL (4.70-6.10); RED CELL DISTRIBUTION WIDTH 16.1 % (11.6-14.8); WHITE BLOOD COUNT 4.3 K/UL (4.8-10.8)
[2017-04-03 13:58] LABS: ALANINE AMINOTRANSFERASE 50 U/L (3-41); ALBUMIN/GLOBULIN RATIO 0.4 (1.0-2.7); ANION GAP 10 (5-15); ASPARTATE AMINO TRANSFERASE 133 U/L (5-40); CALCIUM 8.4 mg/dL (8.6-10.2); CARBON DIOXIDE 23 mEQ/L (20-30); CHLORIDE 101 mEQ/L (98-107); CREATININE 0.9 mg/dL (0.7-1.2); GLOMERULAR FILTRATION RATE > 60 mL/min (>60); HEMOLYSIS 3; SODIUM 134 mEQ/L (135-145); TOTAL PROTEIN 6.7 g/dL (6.6-8.7)
[2017-04-03 14:21] LABS: ANISOCYTOSIS 1+; BAND NEUTROPHILS % (MANUAL) 0 % (0-8); BASOPHILS % (MANUAL) 0 % (0-2); EOSINOPHILS % (MANUAL) 3 % (0-3); HYPOCHROMASIA 1+; LYMPHOCYTES % (MANUAL) 38 % (20-45); NEUTROPHILS % (MANUAL) 46 % (45-75); PLATELET ESTIMATE DECREASED; PLATELET MORPHOLOGY NORMAL; TOTAL CELLS COUNTED 100
[2017-04-03 14:22] LABS: MACROCYTES 1+
[2017-04-03 14:24] LABS: BILIRUBIN,DIRECT 2.2 mg/dL (0.1-0.3)
--- NOTE | 2017-04-03 20:16 | Procedure Note ---
DATE OF PROCEDURE: 04/03/2017 SURGEON: Tutu Denson M.D. PROCEDURE: Upper endoscopy with biopsy and colonoscopy. ANESTHESIOLOGIST: Thu Iyer M.D. INSTRUMENT: Olympus adult flexible endoscope and colonoscope. INDICATION: Screening colonoscopy evaluation, history of esophageal varices and banding in the past. REASON FOR PROCEDURE: The procedure, risks, benefits, and possible consequences, including hemorrhage, aspiration, perforation and infection, and alternative treatments, were explained to the patient/legal guardian by Dr. Tutu Denson and the patient/legal guardian understood and accepted these risks. PROCEDURE: After informed consent was obtained and the patient was adequately sedated, Olympus upper endoscope was advanced from the mouth into the second portion of the duodenum and retroflexion was performed in the stomach. The patient has evidence of banding from prior esophageal varices. There was a scar tissue on the distal esophagus. There were some remnants of the esophageal varices grade 2 without any stigmata. In the distal esophagus, right at the opening of the stomach, at the GE junction, there was a distal esophageal ring. In the stomach, there were diffuse changes of the mucosa suggestive of portal hypertensive gastropathy. Random biopsy from antrum was obtained. The patient noticed some erosion in the prepyloric region. At this time, the upper endoscope was retrieved and the patient was turned over for colonoscopy. First, rectal exam was then performed, which was positive for internal hemorrhoids. The colonoscope was advanced from the rectum into the ileus, seems to be cecum, after which we could not see ileocecal valve nor appendiceal orifice, given there was stool in that area. The patient has evidence of moderate diverticulosis throughout the colon, more prominent in the left compared to right. No obvious mass or polyp was seen. Retroflexion of rectum showed some internal hemorrhoids. SUMMARY FINDINGS: 1. Status esophageal varices, grade 2. 2. Status esophageal ring. 3. Possible portal hypertensive gastropathy, status post biopsy. 4. Antral erosions. 5. Diverticulosis of the colon. 6. Internal hemorrhoids. 7. Fair colonic prep. RECOMMENDATIONS: The patient to follow up biopsy results. The patient is to follow up as an outpatient for management and treatment. Tutu Arsenio Denson DR: EBONY JOB#: [id number] CC:
== END 2017-04-03 13:55 | disposition home or self-care (01) ==
LOC: GAS 10:15
DX: I85.00 Esophageal varices without bleeding (principal); K29.50 Unspecified chronic gastritis without bleeding; Z12.11 Encounter for screening for malignant neoplasm of colon; K64.8 Other hemorrhoids; K57.30 Diverticulosis of large intestine without perforation or abscess without bleeding; I10 Essential (primary) hypertension; I50.9 Heart failure, unspecified; K76.9 Liver disease, unspecified; N28.9 Disorder of kidney and ureter, unspecified; D64.9 Anemia, unspecified; R00.1 Bradycardia, unspecified; I44.0 Atrioventricular block, first degree; Z87.01 Personal history of pneumonia (recurrent)
CPT/HCPCS: 36415; 43239; 80053; 82248; 84439; 84443; 85007; 85025; 86703; 87522; 93005; G0121; J2704; 94003; 94150

== ENCOUNTER 2017-04-06 13:00 | Outpatient (CLI) | payer MEDICARE, MEDICAID ==
[~2017-04-06 13:00] MED LIST changes: +PROPRANOLOL HCL10 MG ORAL; +SPIRONOLACTONE100 MG ORAL; +TAMSULOSIN HCL0.4 MG ORAL
[2017-04-06 13:34] VITALS: BP 101/57
--- NOTE | 2017-04-06 13:50 | General Progress Note ---
Assessment/Plan Problem List: (1) Diverticulosis ICD Codes: K57.90 - Diverticulosis of intestine, part unspecified, without perforation or abscess without bleeding SNOMED: 223103210 (2) Hepatitis C ICD Codes: B19.20 - Unspecified viral hepatitis C without hepatic coma SNOMED: 55141066 (3) Esophageal varices determined by endoscopy ICD Codes: I85.00 - Esophageal varices without bleeding SNOMED: 41002395, 415843350 (4) Alcoholic cirrhosis ICD Codes: K70.30 - Alcoholic cirrhosis of liver without ascites SNOMED: 866124968, 045002206 Assessment/Plan increase lasix to 40 mg RTC in 2 weeks for hep c treatment Subjective ROS Limited/Unobtainable: Yes Allergies: Coded Allergies: No Known Allergies (Unverified , 08/21/16) Objective Last 24 Hour Vital Signs Date Time Temp Pulse Resp B/P Pulse Ox O2 Delivery O2 Flow Rate FiO2 04/06/17 13:34 98.1 57 16 101/57 General Appearance: alert EENT: normal ENT inspection Neck: supple Cardiovascular: normal rate Respiratory/Chest: lungs clear Abdomen: normal bowel sounds, non tender, soft Extremities: swelling ELIO [place] Apr 06, 2017 13:50
== END 2017-04-06 14:00 | disposition home or self-care (01) ==
LOC: PAN 13:00
DX: K57.90 Diverticulosis of intestine, part unspecified, without perforation or abscess without bleeding (principal); B19.20 Unspecified viral hepatitis C without hepatic coma; I85.00 Esophageal varices without bleeding; K70.30 Alcoholic cirrhosis of liver without ascites
CPT/HCPCS: 36415; 87902; G0463; 99211

== ENCOUNTER 2017-04-20 12:55 | Outpatient (CLI) | payer MEDICARE, MEDICAID ==
--- NOTE | 2017-04-20 17:39 | GI Progress Note ---
Assessment/Plan Problems: (1) Hepatitis C ICD Codes: B19.20 - Unspecified viral hepatitis C without hepatic coma SNOMED: 95371907 (2) Esophageal varices determined by endoscopy ICD Codes: I85.00 - Esophageal varices without bleeding SNOMED: 43920178, 299529996 (3) Alcoholic cirrhosis ICD Codes: K70.30 - Alcoholic cirrhosis of liver without ascites SNOMED: 727722206, 154811550 (4) Pneumonia ICD Codes: J18.9 - Pneumonia, unspecified organism SNOMED: 020801785 Status: stable Status Narrative Seen with Dr. Denson. Assessment/Plan Hep C genotype 1A dc propranolol Tx for Hep C >> Harvoni RTC x 1 month Subjective Gastrointestinal/Abdominal: Reports: no symptoms Objective T 98 BP right 81/60 BP left 93/51 98 RA WT 218 General Appearance: no apparent distress, alert Cardiovascular: normal rate Respiratory/Chest: normal breath sounds, no respiratory distress Abdominal Exam: normal bowel sounds, non tender, soft Extremities: normal range of motion Nyla Huitron N.P. Apr 20, 2017 17:39
== END 2017-04-20 13:45 | disposition home or self-care (01) ==
LOC: PAN 12:55
DX: B19.20 Unspecified viral hepatitis C without hepatic coma (principal); I85.00 Esophageal varices without bleeding; K70.30 Alcoholic cirrhosis of liver without ascites; J18.9 Pneumonia, unspecified organism
CPT/HCPCS: 99211

== ENCOUNTER 2017-05-18 14:27 | Outpatient (CLI) | payer MEDICARE, OTHER ==
[2017-05-18 14:40] VITALS: BP 98/57
[2017-05-18] MEDS ORDERED: HARVONI 90-4001 EACH PO (14:40)
--- NOTE | 2017-05-18 15:36 | GI Progress Note ---
Assessment/Plan Problems: (1) Esophageal varices determined by endoscopy ICD Codes: I85.00 - Esophageal varices without bleeding SNOMED: 31198624, 768488008 (2) Hepatitis C ICD Codes: B19.20 - Unspecified viral hepatitis C without hepatic coma SNOMED: 42057672 (3) Alcoholic cirrhosis ICD Codes: K70.30 - Alcoholic cirrhosis of liver without ascites SNOMED: 931862040, 566561783 (4) Diverticulosis ICD Codes: K57.90 - Diverticulosis of intestine, part unspecified, without perforation or abscess without bleeding SNOMED: 092783508 (5) Weakness ICD Codes: R53.1 - Weakness SNOMED: 49861578 (6) Anasarca ICD Codes: R60.1 - Generalized edema SNOMED: 557488824, 883415435 Status: doing well, stable Status Narrative Seen with Dr. Denson. Assessment/Plan Hep C genotype 1A dc propranolol on last visit >> BP stable Imodium prn Tx for Hep C >> Harvoni >> patient tolerating well RTC x 2 month after course of abx Subjective Subjective denies abdominal pain having diarrhea, BM x 3 daily not taking any laxatives or stool softeners Objective Last 24 Hour Vital Signs Date Time Temp Pulse Resp B/P (MAP) Pulse Ox O2 Delivery O2 Flow Rate FiO2 05/18/17 14:40 98.0 76 16 98/57 General Appearance: no apparent distress, alert Cardiovascular: normal rate Respiratory/Chest: normal breath sounds, no respiratory distress Abdominal Exam: normal bowel sounds, non tender, soft Extremities: normal range of motion Objective BLE + 3 edema Nyla Huitron N.PStella May 18, 2017 15:36
== END 2017-05-18 15:15 | disposition home or self-care (01) ==
LOC: PAN 14:27
DX: I85.00 Esophageal varices without bleeding (principal); B19.20 Unspecified viral hepatitis C without hepatic coma; K70.30 Alcoholic cirrhosis of liver without ascites; K57.90 Diverticulosis of intestine, part unspecified, without perforation or abscess without bleeding; R53.1 Weakness; R60.1 Generalized edema
CPT/HCPCS: 99211

== ENCOUNTER 2017-07-20 13:06 | Outpatient (CLI) | payer MEDICARE, OTHER ==
[~2017-07-20 13:06] MED LIST changes: +HARVONI 90-4001 EACH PO
[2017-07-20 13:13] VITALS: BP 116/62
[2017-07-20 14:46] LABS: MEAN CORPUSCULAR HEMOGLOBIN 31.1 PG (27.0-31.0); MEAN CORPUSCULAR HGB CONC 30.4 G/DL (32.0-36.0); MEAN CORPUSCULAR VOLUME 102 FL (80-99); MEAN PLATELET VOLUME 6.3 FL (6.5-10.1); PLATELET COUNT 82 K/UL (150-450); RED BLOOD COUNT 2.92 M/UL (4.70-6.10); RED CELL DISTRIBUTION WIDTH 14.3 % (11.6-14.8); WHITE BLOOD COUNT 5.1 K/UL (4.8-10.8)
[2017-07-20 15:31] LABS: ALANINE AMINOTRANSFERASE 28 U/L (12-78); ALBUMIN/GLOBULIN RATIO 0.5 (1.0-2.7); ANION GAP 6 mmol/L (5-15); ASPARTATE AMINO TRANSFERASE 54 U/L (15-37); CARBON DIOXIDE 27 MMOL/L (21-32); CHLORIDE 105 MMOL/L (98-107); CREATININE 1.2 MG/DL (0.55-1.30); GLOMERULAR FILTRATION RATE > 60 mL/min (>60); POTASSIUM 4.1 MMOL/L (3.5-5.1); SODIUM 138 MMOL/L (136-145); TOTAL PROTEIN 7.3 G/DL (6.4-8.2)
[2017-07-20 15:59] LABS: BAND NEUTROPHILS % (MANUAL) 0 % (0-8); BASOPHILS % (MANUAL) 1 % (0-2); EOSINOPHILS % (MANUAL) 8 % (0-3); LYMPHOCYTES % (MANUAL) 40 % (20-45); NEUTROPHILS % (MANUAL) 43 % (45-75); PLATELET ESTIMATE DECREASED; TOTAL CELLS COUNTED 100
[2017-07-20 16:00] LABS: HYPOCHROMASIA 2+; MACROCYTES 2+; PLATELET MORPHOLOGY NORMAL; POLYCHROMASIA 1+
--- NOTE | 2017-07-20 16:30 | GI Progress Note ---
Subjective Subjective Assessment/Plan Problems: (1) Hepatitis C ICD Codes: B19.20 - Unspecified viral hepatitis C without hepatic coma SNOMED: 58827157 (2) Esophageal varices determined by endoscopy ICD Codes: I85.00 - Esophageal varices without bleeding SNOMED: 17308263, 591186210 (3) Alcoholic cirrhosis ICD Codes: K70.30 - Alcoholic cirrhosis of liver without ascites SNOMED: 074243946, 520403681 (4) Diverticulosis ICD Codes: K57.90 - Diverticulosis of intestine, part unspecified, without perforation or abscess without bleeding SNOMED: 849898338 (5) Anasarca ICD Codes: R60.1 - Generalized edema SNOMED: 407807056, 191069265 (6) Pancytopenia ICD Codes: D61.818 - Other pancytopenia SNOMED: 078501519 Status: stable Status Narrative Seen with Dr. Denson. Assessment/Plan Hep C genotype 1A dc propranolol on last visit >> BP stable Imodium prn s/p Tx for Hep C, patient finished treatment x 2days >> Sona Recommendations: ordered routine abdominal U/S labs drawn; CBC CMP RTC x 3 months for repeat Hep C test. Subjective Subjective Gastrointestinal/Abdominal: Reports: no symptoms Subjective leg edema Objective Objective T 98.4 BP 116/62 P 67 WT 228 General Appearance: WD/WN, no apparent distress, alert Cardiovascular: normal rate Respiratory/Chest: normal breath sounds, no respiratory distress Abdominal Exam: normal bowel sounds, non tender, soft Extremities: normal range of motion, non-tender Nyla Huitron N.PStella Jul 20, 2017 15:26 Objective Last 24 Hour Vital Signs Date Time Temp Pulse Resp B/P (MAP) Pulse Ox O2 Delivery O2 Flow Rate FiO2 07/20/17 13:13 98.4 67 16 116/62 Laboratory Tests Test 07/20/17 13:00 White Blood Count 5.1 K/UL (4.8-10.8) Red Blood Count 2.92 M/UL (4.70-6.10) L Hemoglobin 9.1 G/DL (14.2-18.0) L Hematocrit 29.9 % (42.0-52.0) L Mean Corpuscular Volume 102 FL (80-99) H Mean Corpuscular Hemoglobin 31.1 PG (27.0-31.0) H Mean Corpuscular Hemoglobin Concent 30.4 G/DL (32.0-36.0) L Red Cell Distribution Width 14.3 % (11.6-14.8) Platelet Count 82 K/UL (150-450) L Mean Platelet Volume 6.3 FL (6.5-10.1) L Neutrophils (%) (Auto) % (45.0-75.0) Lymphocytes (%) (Auto) % (20.0-45.0) Monocytes (%) (Auto) % (1.0-10.0) Eosinophils (%) (Auto) % (0.0-3.0) Basophils (%) (Auto) % (0.0-2.0) Differential Total Cells Counted 100 Neutrophils % (Manual) 43 % (45-75) L Lymphocytes % (Manual) 40 % (20-45) Monocytes % (Manual) 8 % (1-10) Eosinophils % (Manual) 8 % (0-3) H Basophils % (Manual) 1 % (0-2) Band Neutrophils 0 % (0-8) Platelet Estimate Decreased L Platelet Morphology Normal Polychromasia 1+ Hypochromasia 2+ Macrocytosis 2+ Sodium Level 138 MMOL/L (136-145) Potassium Level 4.1 MMOL/L (3.5-5.1) Chloride Level 105 MMOL/L (98-107) Carbon Dioxide Level 27 MMOL/L (21-32) Anion Gap 6 mmol/L (5-15) Blood Urea Nitrogen 20 mg/dL (7-18) H Creatinine 1.2 MG/DL (0.55-1.30) Estimat Glomerular Filtration Rate > 60 mL/min (>60) Glucose Level 107 MG/DL (74-106) H Calcium Level 9.0 MG/DL (8.5-10.1) Total Bilirubin 2.1 MG/DL (0.2-1.0) H Direct Bilirubin 1.0 MG/DL (0.0-0.3) H Aspartate Amino Transf (AST/SGOT) 54 U/L (15-37) H Alanine Aminotransferase (ALT/SGPT) 28 U/L (12-78) Alkaline Phosphatase 83 U/L (46-116) Total Protein 7.3 G/DL (6.4-8.2) Albumin 2.3 G/DL (3.4-5.0) L Globulin 5.0 g/dL Albumin/Globulin Ratio 0.5 (1.0-2.7) L Nyla Huitron N.P. Jul 20, 2017 16:30
== END 2017-07-20 13:45 | disposition home or self-care (01) ==
LOC: PAN 13:06
DX: B19.20 Unspecified viral hepatitis C without hepatic coma (principal); I85.00 Esophageal varices without bleeding; K70.30 Alcoholic cirrhosis of liver without ascites; K57.90 Diverticulosis of intestine, part unspecified, without perforation or abscess without bleeding; R60.1 Generalized edema; D61.818 Other pancytopenia
CPT/HCPCS: 36415; 80053; 82248; 85007; 85025; G0463; 99211

== ENCOUNTER 2017-08-21 10:40 | Outpatient (CLI) | payer MEDICARE, OTHER ==
--- NOTE | 2017-07-20 15:26 | GI Progress Note ---
Assessment/Plan Problems: (1) Hepatitis C ICD Codes: B19.20 - Unspecified viral hepatitis C without hepatic coma SNOMED: 18018814 (2) Esophageal varices determined by endoscopy ICD Codes: I85.00 - Esophageal varices without bleeding SNOMED: 43080549, 104087719 (3) Alcoholic cirrhosis ICD Codes: K70.30 - Alcoholic cirrhosis of liver without ascites SNOMED: 253060383, 026147168 (4) Diverticulosis ICD Codes: K57.90 - Diverticulosis of intestine, part unspecified, without perforation or abscess without bleeding SNOMED: 203741843 (5) Anasarca ICD Codes: R60.1 - Generalized edema SNOMED: 492510377, 444443117 (6) Pancytopenia ICD Codes: D61.818 - Other pancytopenia SNOMED: 823853271 Status: stable Status Narrative Seen with Dr. Denson. Assessment/Plan Hep C genotype 1A dc propranolol on last visit >> BP stable Imodium prn s/p Tx for Hep C, patient finished treatment x 2days >> Sona Recommendations: ordered routine abdominal U/S labs drawn; CBC CMP RTC x 3 months for repeat Hep C test. Subjective Gastrointestinal/Abdominal: Reports: no symptoms Subjective leg edema Objective T 98.4 BP 116/62 P 67 WT 228 General Appearance: WD/WN, no apparent distress, alert Cardiovascular: normal rate Respiratory/Chest: normal breath sounds, no respiratory distress Abdominal Exam: normal bowel sounds, non tender, soft Extremities: normal range of motion, non-tender Nyla Huitron NDami Jul 20, 2017 15:26
--- NOTE | 2017-08-21 15:55 | Diagnostic Imaging Report ---
Indication: Hepatitis C, abdominal pain Technique: Kilpatrick-scale and duplex images of the upper abdomen were obtained Comparison: 11/22/2016 Findings: Gallbladder demonstrates a neural shadowing focus, probably a gallstone, appears different than the polyp reported previously. Gallbladder wall is mildly thickened. Sonographic Florence's sign is negative. Common bile duct measures 6 mm in diameter. No intrahepatic biliary ductal dilatation. Liver demonstrates coarsened echogenicity and surface nodularity, also previously reported. No focal abnormalities Portal vein and hepatic veins are patent. Pancreas is unremarkable. The spleen is enlarged, measuring 17 cm long axis dimension Left kidney measures 13.1 cm in length. Right kidney measures 12.5 cm length. Both kidneys demonstrate normal echogenicity. There is no hydronephrosis. No focal abnormality . Abdominal aorta is partially obscured by bowel gas, visualized portions are non-aneurysmal . Impression: Echogenic liver with surface micro-nodularity, consistent with cirrhotic change, previously described Probable small gallstone. Gallbladder wall thickening, probably related to hepatocellular disease, also previously reported possibly of acute cholecystitis should also be considered, however Negative for dilated ducts Splenomegaly, also previously reported Incomplete visualization of the abdominal aorta
== END 2017-08-21 12:40 | disposition home or self-care (01) ==
LOC: RAD 10:40
DX: K74.60 Unspecified cirrhosis of liver (principal); B19.20 Unspecified viral hepatitis C without hepatic coma; R16.1 Splenomegaly, not elsewhere classified
CPT/HCPCS: 76700

== ENCOUNTER 2017-08-31 13:24 | Outpatient (CLI) | payer MEDICARE, OTHER ==
[2017-08-31 13:41] VITALS: BP 126/64
--- NOTE | 2017-08-31 14:33 | GI Progress Note ---
Assessment/Plan Problems: (1) Esophageal varices determined by endoscopy ICD Codes: I85.00 - Esophageal varices without bleeding SNOMED: 86239359, 047775712 (2) Hepatitis C ICD Codes: B19.20 - Unspecified viral hepatitis C without hepatic coma SNOMED: 88153562 (3) Alcoholic cirrhosis ICD Codes: K70.30 - Alcoholic cirrhosis of liver without ascites SNOMED: 735855409, 375667562 (4) Weakness ICD Codes: R53.1 - Weakness SNOMED: 12160420 (5) Sepsis ICD Codes: A41.9 - Sepsis, unspecified organism SNOMED: 06193875 (6) Lactic acid acidosis ICD Codes: E87.2 - Acidosis SNOMED: 91338735 Status: doing well, stable Status Narrative Seen with Dr. Denson. Assessment/Plan Hep C genotype 1A dc propranolol on last visit >> BP stable Imodium prn s/p Tx for Hep C, patient finished treatment >> Harvoni abdominal U/S / labs reviewed with patient. Recommendations: cont lasix, aldactone labs drawn; CBC CMP Needs repeat Hep C test in 2 months EGD scheduled 03/2018. RTC x 1 month Subjective Gastrointestinal/Abdominal: Reports: no symptoms Objective Last 24 Hour Vital Signs Date Time Temp Pulse Resp B/P (MAP) Pulse Ox O2 Delivery O2 Flow Rate FiO2 08/31/17 13:41 98.1 66 16 126/64 97 General Appearance: WD/WN, no apparent distress, alert Cardiovascular: normal rate Respiratory/Chest: normal breath sounds, no respiratory distress Abdominal Exam: normal bowel sounds, non tender, soft Extremities: normal range of motion, non-tender Nyla Huitron N.P. Aug 31, 2017 14:33
== END 2017-08-31 13:57 | disposition home or self-care (01) ==
LOC: PAN 13:24
DX: A41.9 Sepsis, unspecified organism (principal); I85.00 Esophageal varices without bleeding; B19.20 Unspecified viral hepatitis C without hepatic coma; K70.30 Alcoholic cirrhosis of liver without ascites; R53.1 Weakness; E87.2 Acidosis
CPT/HCPCS: 99212

== ENCOUNTER 2017-10-05 13:06 | Outpatient (CLI) | payer MEDICARE, OTHER ==
[2017-10-05 13:36] VITALS: BP 112/61
--- NOTE | 2017-10-05 14:57 | GI Progress Note ---
Assessment/Plan Problems: (1) Esophageal varices determined by endoscopy ICD Codes: I85.00 - Esophageal varices without bleeding SNOMED: 82605553, 389342412 (2) Hepatitis C ICD Codes: B19.20 - Unspecified viral hepatitis C without hepatic coma SNOMED: 66099926 (3) Alcoholic cirrhosis ICD Codes: K70.30 - Alcoholic cirrhosis of liver without ascites SNOMED: 285123123, 573222096 (4) Weakness ICD Codes: R53.1 - Weakness SNOMED: 43112138 Status: stable Status Narrative Seen with Dr. Denson. Assessment/Plan Hep C genotype 1A dc propranolol on last visit >> BP stable Imodium prn s/p Tx for Hep C, patient finished treatment >> Harvoni abdominal U/S / labs reviewed with patient. Labs to be drawn today >> CBC, CMP, Coags, Mg, Phos, Hep C Quant RTC x 1 month needs repeat EGD in March 2018. Subjective Gastrointestinal/Abdominal: Reports: no symptoms Objective T 98.0 BP 112/62 P 67 100 RA General Appearance: WD/WN, no apparent distress, alert Cardiovascular: normal rate Respiratory/Chest: normal breath sounds, no respiratory distress Abdominal Exam: normal bowel sounds, non tender, soft Extremities: normal range of motion, non-tender Nyla Huitron N.P. Oct 05, 2017 14:57
== END 2017-10-05 13:41 | disposition home or self-care (01) ==
LOC: PAN 13:06
DX: K70.30 Alcoholic cirrhosis of liver without ascites (principal); I85.00 Esophageal varices without bleeding; B19.20 Unspecified viral hepatitis C without hepatic coma; R53.1 Weakness
CPT/HCPCS: 99212

== ENCOUNTER 2017-10-05 14:19 | Outpatient (CLI) | payer MEDICARE, OTHER ==
[2017-10-05 14:56] LABS: HEMATOCRIT 33.5 % (42.0-52.0); HEMOGLOBIN 10.4 G/DL (14.2-18.0); MEAN CORPUSCULAR VOLUME 97 FL (80-99); PLATELET COUNT 77 K/UL (150-450); RED BLOOD COUNT 3.47 M/UL (4.70-6.10); RED CELL DISTRIBUTION WIDTH 15.2 % (11.6-14.8); WHITE BLOOD COUNT 4.6 K/UL (4.8-10.8)
[2017-10-05 15:06] LABS: INR 1.6 (0.9-1.1)
[2017-10-05 15:11] LABS: ALANINE AMINOTRANSFERASE 22 U/L (12-78); ALBUMIN 2.5 G/DL (3.4-5.0); ALBUMIN/GLOBULIN RATIO 0.5 (1.0-2.7); ALKALINE PHOSPHATASE 93 U/L (46-116); ANION GAP 6 mmol/L (5-15); ASPARTATE AMINO TRANSFERASE 43 U/L (15-37); BILIRUBIN,TOTAL 1.3 MG/DL (0.2-1.0); BLOOD UREA NITROGEN 16 mg/dL (7-18); CALCIUM 9.4 MG/DL (8.5-10.1); CARBON DIOXIDE 27 MMOL/L (21-32); CHLORIDE 106 MMOL/L (98-107); CREATININE 1.1 MG/DL (0.55-1.30); PHOSPHORUS 4.3 MG/DL (2.5-4.9); POTASSIUM 4.1 MMOL/L (3.5-5.1); SODIUM 139 MMOL/L (136-145)
[2017-10-05 15:24] LABS: BILIRUBIN,DIRECT 0.7 MG/DL (0.0-0.3)
== END 2017-10-05 16:19 | disposition home or self-care (01) ==
LOC: LAB 14:19
DX: K74.60 Unspecified cirrhosis of liver (principal)
CPT/HCPCS: 36415; 80053; 82248; 83735; 84100; 85007; 85025; 85610; 85730; 87522

== ENCOUNTER 2017-11-23 14:04 | Outpatient (CLI) | payer MEDICARE, OTHER ==
--- NOTE | 2017-11-23 17:02 | GI Progress Note ---
Assessment/Plan Problems: (1) Esophageal varices determined by endoscopy ICD Codes: I85.00 - Esophageal varices without bleeding SNOMED: 66651857, 896373025 (2) Hepatitis C ICD Codes: B19.20 - Unspecified viral hepatitis C without hepatic coma SNOMED: 50779853 (3) Alcoholic cirrhosis ICD Codes: K70.30 - Alcoholic cirrhosis of liver without ascites SNOMED: 044841922, 758572677 (4) Anasarca ICD Codes: R60.1 - Generalized edema SNOMED: 119970123, 333221769 Status: doing well, stable Status Narrative Discussed with Dr. Denson. Assessment/Plan Hep C genotype 1A dc propranolol >> BP stable Imodium prn s/p Tx for Hep C, patient finished treatment >> Harvoni abdominal U/S / labs reviewed with patient. cont lasix, aldactone increase protein intake RTC x 2 months needs Abdominal U/S in January 2018 needs repeat EGD in March 2018. Subjective Gastrointestinal/Abdominal: Reports: no symptoms Subjective Had labs drawn, needs review. Objective T 98 BP 109/59 71 96 RA General Appearance: WD/WN, no apparent distress, alert Cardiovascular: normal rate Respiratory/Chest: normal breath sounds, no respiratory distress Abdominal Exam: normal bowel sounds, non tender, soft Extremities: normal range of motion, non-tender Nyla Huitron N.P. Nov 23, 2017 17:01
== END 2017-11-23 14:36 | disposition home or self-care (01) ==
LOC: PAN 14:04
DX: I85.00 Esophageal varices without bleeding (principal); B19.20 Unspecified viral hepatitis C without hepatic coma; K70.30 Alcoholic cirrhosis of liver without ascites
CPT/HCPCS: 99211